=== PATIENT | male | born 1960 | race African-American/Black ===

== ENCOUNTER 2016-08-18 11:57 | Inpatient (IN) | payer MEDICARE, MEDICAID ==
[~2016-08-18] VITALS: Ht 185.4 cm; Wt 76.0 kg
[~2016-08-18 11:57] MED LIST: /ESCI20TA; /WARF5TA; /WARF5TA OR; ACET65TA OR; AMLO10TAB OR; AMLO5TAB OR; ASPI81TA63; BISO5TAB2 PO; BYSTOLIC; BYSTOLIC PO; CELE40TA; CELE40TA OR; CELE40TA PO; COUM10TA OR; COUM6TAB PO; ENOX40SY SC; EUCECRE3 TOP; HYDR12.55 PO; HYDR1TAB97 PO; IBUP600T; LISI40TA; LISIPOW OR; NEBIVOLOL PO; TOPI100T OR; TOPI50TA OR; TRAZ100T; TRAZ100T OR; TRAZ100T4 PO; TRAZODONE PO; VICO5TAB; VICO5TAB OR; ZEBE5TAB PO
[2016-08-18 12:33] LABS: MEAN CORPUSCULAR HEMOGLOBIN 24.6 pg (27.0-33.0); MEAN CORPUSCULAR HGB CONC 31.7 g/dl (32.0-36.5); MEAN CORPUSCULAR VOLUME 77.8 fl (80.0-96.0); RED CELL DISTRIBUTION WIDTH 15.3 % (11.5-14.5); WHITE BLOOD COUNT 4.2 K/mm3 (4.0-10.0)
[2016-08-18 12:51] LABS: AMPHETAMINES LEVEL URINE NEGATIVE (NEGATIVE); BENZODIAZEPINES URINE NEGATIVE (NEGATIVE); COCAINE METABOLITE URINE POSITIVE (NEGATIVE); CONTROL LINE INT CTR LINE PRESENT; METHADONE URINE NEGATIVE (NEGATIVE); OPIATES URINE NEGATIVE (NEGATIVE); TRICYCLIC ANTIDEPRESS URINE NEGATIVE (NEGATIVE)
[2016-08-18 13:06] LABS: ALBUMIN/GLOBULIN RATIO 1.03 (1.00-1.93); ALKALINE PHOSPHATASE 87 U/L (45-117); ALT/SGPT 30 U/L (12-78); ANION GAP 8 MEQ/L (8-16); AST/SGOT 31 U/L (15-37); BILIRUBIN,DIRECT 0.2 MG/DL (0.0-0.2); BILIRUBIN,TOTAL 0.7 MG/DL (0.2-1.0); BLOOD UREA NITROGEN 10 MG/DL (7-18); CALCIUM LEVEL 8.9 MG/DL (8.5-10.1); CARBON DIOXIDE LEVEL 28 MEQ/L (21-32); CHLORIDE LEVEL 107 MEQ/L (98-107); CREATININE FOR GFR 1.02 MG/DL (0.70-1.30); GLOMERULAR FILTRATION RATE > 60.0 (>56); GLUCOSE, FASTING 101 MG/DL (70-105); SODIUM LEVEL 143 MEQ/L (136-145); TOTAL PROTEIN 7.9 GM/DL (6.4-8.2)
[2016-08-18] MEDS ORDERED: OXAZEPAM 15 MG CAP As Ordered ONE (14:19)
[2016-08-18] MEDS ORDERED: cloNIDine 0.2 MG TAB As Ordered ONE ×2 (14:20→15:11)
[2016-08-18] MEDS ORDERED: hydroCHLOROthiazide 25 MG TAB As Ordered ONE (15:41)
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
[2016-08-18 20:56] VITALS: BP 145/90
[2016-08-18] MEDS ORDERED: HYDROCHLOROthiazide 6.25MG PER 1/4TAB PO ONE (21:15)
[2016-08-18] MEDS ORDERED: amLODIPine 5 MG TAB PO ONE (21:15)
[2016-08-18] MEDS: NICOTINE 7 MG/24 HR TRANSDERMAL TD SCH (22:15)
[2016-08-19] MEDS ORDERED: MOM 30ML SUSPENSION UDC PO PRN (00:30)
[2016-08-19] MEDS ORDERED: MAALOX 30 ML SUSP *UDC PO PRN (00:30)
[2016-08-19] MEDS: THIAMINE 100 MG TAB PO SCH ×3 (04:09→20:56)
[2016-08-19 06:52] VITALS: BP 126/56
--- NOTE | 2016-08-19 07:38 | ECGEPIP ---
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
[2016-08-19] MEDS: HYDROCHLOROthiazide 6.25MG PER 1/4TAB PO SCH (07:56)
[2016-08-19] MEDS: MULTIVITAMINS/MINERALS THERAP 1 TAB PO SCH (07:57)
[2016-08-19] MEDS: FOLIC ACID 1 MG TAB PO SCH (07:57)
[2016-08-19] MEDS: amLODIPine 5 MG TAB PO SCH (07:57)
[2016-08-19] MEDS: NICOTINE 7 MG/24 HR TRANSDERMAL TD SCH (07:59)
[2016-08-19] MEDS ORDERED: HYDROCHLOROthiazide 6.25MG PER 1/4TAB PO SCH (09:00)
[2016-08-19] MEDS ORDERED: amLODIPine 5 MG TAB PO SCH (09:00)
[2016-08-19] MEDS ORDERED: hydroCHLOROthiazide 25 MG TAB PO SCH (09:00)
[2016-08-19 13:54] VITALS: BP 159/89
[2016-08-19] MEDS: CitaloPRAM (CeleXA) 10 MG TABLET PO SCH (14:37)
[2016-08-19 18:00] VITALS: BP 142/80
[2016-08-19] MEDS: traZODone 50 MG TAB PO PRN (20:57)
[2016-08-20 06:30] VITALS: BP 147/75
[2016-08-20] MEDS: THIAMINE 100 MG TAB PO SCH ×2 (08:21→20:26)
[2016-08-20] MEDS: CitaloPRAM (CeleXA) 10 MG TABLET PO SCH (08:21)
[2016-08-20] MEDS: MULTIVITAMINS/MINERALS THERAP 1 TAB PO SCH (08:21)
[2016-08-20] MEDS: FOLIC ACID 1 MG TAB PO SCH (08:21)
[2016-08-20] MEDS: amLODIPine 5 MG TAB PO SCH (08:22)
[2016-08-20] MEDS: HYDROCHLOROthiazide 6.25MG PER 1/4TAB PO SCH (08:22)
[2016-08-20] MEDS: NICOTINE 7 MG/24 HR TRANSDERMAL TD SCH (08:30)
[2016-08-20 08:46] VITALS: BP 132/72
[2016-08-20] MEDS: ACETAMINOPHEN TAB 650MG DOSE (2X325MG) PO PRN ×2 (08:46→21:17)
--- NOTE | 2016-08-20 12:44 | MHHPE ---
DATE OF ADMISSION: 08/18/2016 VITAL SIGNS: Temperature 96.5, pulse 55, respiratory rate 16, blood pressure 160/90, pulse oximetry 99% on room air. LABORATORY RESULTS: CBC within normal limits except red bloods cell high 6.15, MCV low 77.8, MCH low 24.6, MCHC low 31.7, RDW high 15.3, CMP, including TSH within normal limits, including cardiac enzymes. Urine toxicology positive for cocaine. Blood alcohol level, Tylenol, and salicylate levels within normal limits. EKG shows heart rate 56, QTC 451, sinus rhythm, left ventricular hypertrophy and ST-T changes, similar to previous EKG on 07/29/2016. MEDICATIONS AT THE TIME OF ADMISSION: Patient has been noncompliant with medications. He is supposed to be taking: - amlodipine 5 mg daily - hydrochlorothiazide 6.25 mg daily - Celexa unknown dosage - hydroxyzine 25 mg by mouth twice a day - trazodone 150 mg He states he has been on Celexa for three to four years, but inconsistently and not long enough to know if it works. He does not know if it helps. He things the hydroxyzine help with anxiety. He states he has been forgetful and not having enough motivation to fill prescriptions and that is why he becomes inconsistent with compliance. CHIEF COMPLAINT: Patient hospitalized for active suicidal ideation with plan. HISTORY OF PRESENTING ILLNESS: Patient is a 55-year-old Male, single, living by himself. He spoke to his strategy analyst yesterday and voiced active suicidal ideation with plan. His strategy analyst brought him to the hospital. Patient stated he has been feeling depressed and suicidal for about the past month. He states he tried to kill himself about three weeks ago by taking an overdose of cocaine, heroin and alcohol. He states he had gotten the drugs from a girl and he was in a parking lot when he took the medication and he was unconscious. Someone called 911. He is not sure who. The records from the admission to the medical floor on that occasion indicates that patient was hospitalized in the progressive care unit (PCU). He was admitted to PCU for cardiac monitoring. Patient became angry when they found a cocaine pipe in his belongings and he signed out against medical advice. Patient states he never told them that he had made a suicide attempt at the time. Patient since then has been having active thoughts of ending his life by walking in front of a car or turning the gas on. He states he is tired of his life and "...doing the same thing over and over again." He states he has not seen his family for a while as they live in [place]. He has been here for five years. He came up here because he had a friend, but his friend is no longer here. He stated he does not go to rastafarian anymore. He stays at home all day, sleeping on his couch. He states he is giving up. He denies any auditory or visual hallucinations, delusions. He denies any thoughts to hurt others. Denies homicidal ideation. He states his thoughts are filled with active, destructive thoughts of hurting himself; however, he feels safe on the unit and feels he can keep himself safe around people here on the unit. He denies any thoughts to hurt himself or take his own life or hurt others, or having suicidal thoughts in the unit. PAST PSYCHIATRIC HISTORY: Patient has made two previous suicide attempts. He has had previous psychiatric admissions to [facility] inpatient mental health unit ([facility] He states he was seeing a prescriber, Jie, in [facility] for the past three to four years. He does not have a therapeutic case manager or case hardener. CHEMICAL DEPENDENCY: He drinks four to five three times a week. He smokes cocaine weekly. The last time he did cocaine was two days ago. The last time he drank alcohol was three to four days ago. He denies using other drugs. He stated he used heroin, but only with recent suicide attempt three weeks ago. FAMILY HISTORY: Denies history of mental illness, substance abuse, suicide, suicide attempts. PAST MEDICAL HISTORY: 1. Hepatitis C. 2. History of deep venous thrombosis (DVT). 3. Hypertension. 4. History of recurrent seizures. SOCIAL HISTORY: He lives by himself. He is on Social Security Income (SSI) and Social Security Disability (SSD). He has been living here for the past five years. He denies emotional, sexual or physical abuse. He was raised in [place]. His family is still there. MENTAL STATUS EXAMINATION: A 55-year-old -[place] male, tall height, slim build. Pleasant, calm, cooperative. Depressed, anxious. Affect restricted. Mood congruent. Thought form: logical, current, goal-directed, organized. Thought content: Denies active suicidal ideation (SI) or thought of hurt self. Denies homicidal ideation thoughts towards other while he is on the unit. Perception: Denies auditory or visual hallucinations. Insight and judgment fair. Impulse control fair. He contracts for safety on the unit. ASSESSMENT: A 55-year-old -[place] male with significant past psychiatric history of depression, substance abuse and noncompliance with medication. He presents himself with active suicidal ideation. DIAGNOSES: 1. Major depression disorder, recurrent, current episode severe without psychosis. 2. Alcohol use disorder. 3. Cocaine use disorder. PROBLEM LIST: 1. Risk of suicide. 2. Depression with anxiety. 3. Substance use. 4. Noncompliance. PLAN: Patient will be resumed on Celexa. He will be placed on Clinical [place] Withdrawal Assessment (CIWA) protocol and withdrawal precautions. He will be provided hydroxyzine as needed for anxiety. He will need case management referral, as it may help him to be better compliant with his medication. We also informed him about delivery service that some pharmacies have, which would again help improve his compliance with medication.
[2016-08-20 18:00] VITALS: BP 142/87
[2016-08-20] MEDS: LORazepam 2 MG TAB PO PRN (21:16)
[2016-08-20 21:20] VITALS: BP 168/88
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
[2016-08-20] MEDS: traZODone 50 MG TAB PO PRN (23:12)
[2016-08-21 06:00] VITALS: BP 155/88
[2016-08-21] MEDS: MULTIVITAMINS/MINERALS THERAP 1 TAB PO SCH (08:22)
[2016-08-21] MEDS: FOLIC ACID 1 MG TAB PO SCH (08:22)
[2016-08-21] MEDS: CitaloPRAM (CeleXA) 20 MG TAB PO SCH (08:22)
[2016-08-21] MEDS: THIAMINE 100 MG TAB PO SCH ×2 (08:22→21:36)
[2016-08-21] MEDS: HYDROCHLOROthiazide 6.25MG PER 1/4TAB PO SCH (08:23)
[2016-08-21] MEDS: amLODIPine 5 MG TAB PO SCH (08:23)
[2016-08-21 10:12] VITALS: BP 150/85
[2016-08-21] MEDS: LORazepam 2 MG TAB PO PRN (10:20)
[2016-08-21 10:24] VITALS: BP 142/94
[2016-08-21 14:08] VITALS: BP 138/80
[2016-08-21 18:00] VITALS: BP 138/80
[2016-08-21] MEDS: traZODone 50 MG TAB PO PRN (21:36)
[2016-08-22 07:15] VITALS: BP 144/86
[2016-08-22] MEDS: THIAMINE 100 MG TAB PO SCH ×2 (09:12→21:53)
[2016-08-22] MEDS: amLODIPine 5 MG TAB PO SCH (09:12)
[2016-08-22] MEDS: FOLIC ACID 1 MG TAB PO SCH (09:12)
[2016-08-22] MEDS: MULTIVITAMINS/MINERALS THERAP 1 TAB PO SCH (09:12)
[2016-08-22] MEDS: HYDROCHLOROthiazide 6.25MG PER 1/4TAB PO SCH (09:12)
[2016-08-22] MEDS: CitaloPRAM (CeleXA) 20 MG TAB PO SCH (09:12)
[2016-08-22 09:32] VITALS: BP 131/79
--- NOTE | 2016-08-22 10:42 | IPNPDOC ---
Assessment/Plan Date Seen The patient was seen on 08/22/16. Problems Problems: (1) Hypertension Status: Chronic Response to Treatment: Stable Problem Text: * Hydrochlorothiazide 6.25 mg daily * Norvasc 5 mg daily * Blood pressure this a.m. is noted to be 131/79 * Continue to monitor (2) Hepatitis C Status: Chronic Problem Text: * Plan is for outpatient follow-up (3) Low back pain Status: Acute Problem Text: * Check UA/urine culture * X-ray of lumbosacral spine * Continue with Tylenol as needed Plan / VTE VTE Prophylaxis Ordered?: No (ambulatory) Subjective Review of Systems CC/HPI The patient is a 56-year-old male admitted with a reason for visit of Unspecified Depressive D/O. Events since last encounter Patient complaining of low back pain which she states is worse this morning. Activity is making his pain worse. It is radiating across his low back and into his upper legs. He denies weakness in his legs. No numbness or tingling. No loss of bowel or bladder control. He does not complain of any urinary pain, hematuria, frequency or urgency. Constitutional: Denies: Chills, Fever, Malaise, Night Sweats, Weakness Pulmonary: Denies: Cough, Dyspnea Cardiovascular: Denies: Chest Pain, Lt Headedness, Orthopnea, Palpitations, Paroxysmal Noc. Dyspnea Genitourinary: Denies: Dysuria, Frequency, Incontinence, Retention Objective Physical Examination General Exam: Positive: Alert Eye Exam: Positive: PERRLA ENT Exam: Positive: Atraumatic Chest Exam: Positive: Clear to auscultation, Normal air movement Heart Exam: Positive: Normal S1, Normal S2, Rate Normal, Regular Rhythm, Negative: Murmurs, Rubs Abdomen Exam: Positive: Normal bowel sounds, Soft, Negative: Hepatospenomegaly, Tenderness Skin Exam: Positive: Nl turgor and temperature Neuro Exam: Positive: Normal Gait, Other (there is no pain with palpation over the lumbar area or paraspinal muscles. A leg raise test is negative. Deep tendon reflexes are 2+ at the knees.) Vital Signs/I&O Vital Signs Date Time Temp Pulse Resp B/P Pulse Ox O2 Delivery O2 Flow Rate FiO2 08/22/16 09:32 74 131/79 08/22/16 07:15 96.5 16 08/21/16 06:00 Room Air 08/18/16 20:56 99 Laboratory Data Labs 24H Laboratory Tests 2 08/22/16 09:27: Urine Amorphous Sediment , Urine Appearance CLEAR, Urine Color YELLOW, Urine pH 5.0, Urine Specific [place] 1.023, Urine Protein NEGATIVE, Urine Glucose (UA) NEGATIVE, Urine Ketones NEGATIVE, Urine Urobilinogen 0.2, Urine Bilirubin NEGATIVE, Urine Leukocyte Esterase NEGATIVE, Urine Bacteria (Auto) NEGATIVE, Urine Blood NEGATIVE, Urine Calcium Carbonate Cryst(Auto) , Urine Calcium Oxalate Cryst (Auto) , Urine Calcium Phosphate Kerri (Auto) , Urine Cellular Casts , Urine Cystine Crystals , Urine Granular Casts (Auto) , Urine Hyaline Casts (Auto) 0, Urine Leucine Crystals , Urine Mucus (Auto) SMALL, Urine Nitrite NEGATIVE, Urine Oval Fat Bodies (Auto) , Urine RBC (Auto) 1, Urine Renal Epithelial Cells , Urine Sperm (Auto) , Urine Squamous Epithelial Cells 0 , Urine Transitional Epithelial Cells , Urine Trichomonas (Auto) , Urine Triple Phosphate Cryst (Auto) , Urine Tyrosine Crystals , Urine Uric Acid Crystals ( Auto) , Urine WBC (Auto) 0, Urine Waxy Casts (Auto) , Urine Yeast-Like Cells ( Auto) Microbiology Microbiology 08/22/16 Urine Culture, Received Pending Jasmyn Kilpatrick Aug 22, 2016 10:42
--- NOTE | 2016-08-22 12:13 | REP ---
LUMBOSACRAL SPINE: Five views of the lumbosacral spine performed. There is no compression fracture. There is no spondylolysis or spondylolisthesis. There is mild spurring and disc space narrowing at L5-S1 with subchondral sclerosis. The posterior elements are intact. IMPRESSION: Degenerative changes at L5-S1. No compression fracture and no malalignment. Incidental note is made of a gallstone in the right upper quadrant. Signed by Jose G Savage MD 08/22/2016 04:11 P
[2016-08-22] MEDS: ACETAMINOPHEN TAB 650MG DOSE (2X325MG) PO PRN ×2 (13:21→21:53)
[2016-08-22 18:00] VITALS: BP 142/94
[2016-08-22] MEDS: traZODone 50 MG TAB PO PRN (21:53)
[2016-08-23 06:00] VITALS: BP 160/92
--- NOTE | 2016-08-23 06:20 | IPN ---
DATE: 08/20/2016 VITAL SIGNS: Temperature 95.6, pulse 56, respiratory rate 16, blood pressure 147/75. CURRENT MEDICATION: - Celexa 10 mg - amlodipine - hydrochlorothiazide - trazodone as needed - Ativan as needed HISTORY OF PRESENTING ILLNESS: Patient states that he is feeling a little bit better. He is out of his room. He does not want a nicotine patch. States he slept poorly. I advised the patient to try another night of the trazodone. I advised that will increase the Celexa tomorrow. He has tolerated the 10 mg. He continues to deny active suicidal ideation. He continues to contract for safety on the unit. MENTAL STATUS EXAMINATION: 55-year-old male, tall height, slim build, pleasant, calm, cooperative, depressed, anxious. Affect restricted. Mood congruent. Thought form logical, coherent and goal directed, organized. Thought content: Denies suicidal ideation (SI), homicidal ideation (HI), delusions. Perception: Denies auditory or visual hallucinations. Insight and judgment fair. Impulse control fair. ASSESSMENT AND PLAN: Increase Celexa to 20 mg. Monitor response to medication changes.
[2016-08-23 07:35] VITALS: BP 140/90
[2016-08-23] MEDS: HYDROCHLOROthiazide 6.25MG PER 1/4TAB PO SCH (08:12)
[2016-08-23] MEDS: MULTIVITAMINS/MINERALS THERAP 1 TAB PO SCH (08:12)
[2016-08-23] MEDS: FLUoxetine 10 MG CAP PO SCH (08:12)
[2016-08-23] MEDS: THIAMINE 100 MG TAB PO SCH ×2 (08:12→21:52)
[2016-08-23] MEDS: FOLIC ACID 1 MG TAB PO SCH (08:12)
[2016-08-23] MEDS: amLODIPine 5 MG TAB PO SCH (08:13)
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
--- NOTE | 2016-08-23 10:07 | IPN ---
DATE: 08/21/2016 VITAL SIGNS: Temperature 96.1, pulse 61, respiratory rate 16, blood pressure 155/85. CURRENT MEDICATIONS: - Celexa 20 mg in the morning - amlodipine/hydrochlorothiazide - trazodone as needed - Ativan as needed The patient was seen in the presence of Nancy Garcia, nurse on the unit. The patient states that he is doing the same, no different. He was sleeping when I went to get him. He states that he is having some shaking of his hand and his head hurts and he is feeling anxious. These are all potential withdrawal symptoms from alcohol. I reviewed his vital signs. His blood pressure was elevated at 150/85 this morning. He has not received Ativan as per the CIWA scale since last night at 9:00 p.m. Nancy said she will check him out for the CIWA scale and see if he would meet criteria for medication. Subsequently, she checked his blood pressure and it was identical to the morning and he received a dose of Ativan 2 mg. His blood pressure came down after that. The patient states that he continues to be depressed. He states that he does not think that he will do any chemical dependency treatment as long as he is on medication. The patient denies suicidal ideation, homicidal ideation, thoughts of deliberate self harm or thoughts to hurt others. MENTAL STATUS EXAMINATION: 56-year-old -Gambian male, tall height, average build, pleasant, calm, cooperative, depressed, anxious. Affect restricted. Mood congruent. Thought form logical, coherent, and goal directed, organized. Thought content: Denies suicidal ideation, homicidal ideation, delusions. Perception: Denies auditory or visual hallucinations. Insight and judgment fair. Impulse control fair. ASSESSMENT: 56-year-old -Gambian male hospitalized for suicidal ideation. PLAN: Monitor response to increase of Celexa that was done from this morning. Closely monitor CIWA scale and need for benzodiazepine, as the patient had alcohol withdrawal seizures earlier in the month, for which he had been hospitalized here at [facility]. The patient will need case management referral in the community because he is very poorly compliant with medication, as he usually does not go and fill it, although he finds the medication useful. It will also be imperative to set up home delivery of medication for him.
[2016-08-23 12:11] VITALS: BP 142/90
--- NOTE | 2016-08-23 13:02 | IPN ---
DATE: 08/22/2016 VITAL SIGNS: Temperature 96.5, pulse 71, respirations 16, blood pressure 144/86. CURRENT MEDICATIONS: - Celexa 20 mg every morning - trazodone 50 mg at bedtime as needed PSYCHIATRIC HISTORY: This is a 56-year-old male living by himself, living on disability. Patient reported to his fruit grader operator that he had active suicidal ideation with a plan. The fruit grader operator brought him to the hospital. Patient has been feeling depressed and suicidal for about one month. Patient had a serious suicide attempt about 3 weeks ago, overdosing on cocaine, heroin, and alcohol. He passed out in the parking lot but was seen by a woman, and 911 was called. Patient was brought here to the hospital, and he was admitted to the progressive care unit (PCU). Patient signed out against medical advice, however. Currently he has suicidal thoughts of walking in front of a car or turning the gas on. Patient feels helpless and hopeless. He feels unproductive. He self-medicates with alcohol, which makes the depression worse. He also abuses cocaine as well and at times heroin. His appetite is poor. He reported losing 30 pounds over the past 6 months. His concentration is poor. Lack of energy is significant. He has trouble falling asleep. He gets no pleasure out of life. Patient has been prescribed Celexa off and on over the years, but he has a history of poor medication compliance. He has not taken the Celexa for at least 1-2 months recently. Patient has heard voices in the past. These are primarily whispers that are very vast in the background. He blames them on his alcoholism. Patient has been at [facility] in the past. He claims he is willing to go back to Narcotics Anonymous (NA) once his mood improves. He did speak to his son in [place] earlier today. His family is worried about him. All of his family is down in [place], and none here in the [facility]. Patient has not had a good clinical response to Celexa over the years. We discuss either Prozac or Paxil. He would prefer a trial on Prozac. Side effect profile reviewed. Risk of suicidal ideation reviewed. Patient states his depression dates back to the mid when he was living in the [facility] area. Patient was hospitalized for about a month at that time. MENTAL STATUS EXAMINATION: Patient is alert, oriented, and cooperative. Affect does appear sad. He is quite thin. Mood is moderately to severely depressed. He currently denies hearing voices but has heard them in the past. No signs of paranoia or thought disorder. Insight and judgment are fair. DIAGNOSES: 1. Major depression, recurrent, severe with past history of psychosis. 2. Alcohol use disorder. 3. Cocaine use disorder. PLAN: Discontinue Celexa and put on Prozac 10 mg every morning. Monitor for any signs of alcohol withdrawal.
[2016-08-23] MEDS: ACETAMINOPHEN TAB 650MG DOSE (2X325MG) PO PRN (15:38)
[2016-08-23 18:00] VITALS: BP 138/90
[2016-08-23] MEDS ORDERED: GABAPENTIN 400 MG CAP PO SCH (21:00)
[2016-08-23] MEDS: traZODone 50 MG TAB PO PRN (21:53)
[2016-08-23 22:30] VITALS: BP 142/84
[2016-08-24 06:15] VITALS: BP 147/92
[2016-08-24] MEDS: FLUoxetine 10 MG CAP PO SCH (08:20)
[2016-08-24] MEDS: THIAMINE 100 MG TAB PO SCH ×2 (08:20→21:47)
[2016-08-24] MEDS: FOLIC ACID 1 MG TAB PO SCH (08:20)
[2016-08-24] MEDS: MULTIVITAMINS/MINERALS THERAP 1 TAB PO SCH (08:20)
[2016-08-24] MEDS: HYDROCHLOROthiazide 6.25MG PER 1/4TAB PO SCH (08:20)
[2016-08-24] MEDS: amLODIPine 5 MG TAB PO SCH (08:21)
--- NOTE | 2016-08-24 12:00 | IPN ---
DATE: 08/23/2016 VITAL SIGNS: Temperature 97.1, pulse 64, respirations 20, blood pressure 142/90. CURRENT MEDICATIONS: - Prozac 10 mg every morning - trazodone 100 mg at bedtime as needed - folic acid 1 mg daily - multivitamin one tablet daily - thiamine 100 mg twice a day PSYCH HISTORY: Patient still feels depressed. He feels "confused". He is not sure what to do with his life. He would like to have goals. He has no reason to get out of bed in the morning. He would like to go to some type of program that would give him a meaningful daily activity. The patient had been on Celexa, but was switched over to Prozac today. He tolerated the initial dose this morning just fine. No gastrointestinal side effects. The patient still feels anxious and "overwhelmed". His appetite is good. He did not sleep well last night with the trazodone. He claims that he had some "crazy dreams". He wants some other sleeping medication. We discussed a trial of gabapentin as that can be helpful for insomnia in alcoholics. Side effect profile reviewed. MENTAL STATUS EXAM: Patient is highly anxious with some dysphoria and mild to moderate depression. He is not actually suicidal. He is not homicidal. Insight and judgment are fair. No signs of psychosis. No signs of organicity. IMPRESSION: Major depression, recurrent. Alcohol use disorder. Cocaine use disorder. PLAN: Start trial of gabapentin 400 mg at bedtime tonight to help with sleep, anxiety and perhaps craving.
[2016-08-24 12:49] VITALS: BP 147/92
[2016-08-24] MEDS: GABAPENTIN 300 MG CAP PO SCH ×2 (17:05→21:47)
[2016-08-24 18:00] VITALS: BP 129/76
[2016-08-24 21:48] VITALS: BP 134/94
[2016-08-24 21:49] VITALS: BP 134/94
[2016-08-25 06:00] VITALS: BP 152/82
[2016-08-25] MEDS: GABAPENTIN 300 MG CAP PO SCH ×4 (06:25→21:51)
[2016-08-25 08:48] VITALS: BP 134/88
[2016-08-25] MEDS: amLODIPine 5 MG TAB PO SCH (08:51)
[2016-08-25] MEDS: THIAMINE 100 MG TAB PO SCH ×2 (08:51→21:51)
[2016-08-25] MEDS: FOLIC ACID 1 MG TAB PO SCH (08:51)
[2016-08-25] MEDS: HYDROCHLOROthiazide 6.25MG PER 1/4TAB PO SCH (08:51)
[2016-08-25] MEDS: ACETAMINOPHEN TAB 650MG DOSE (2X325MG) PO PRN ×2 (08:51→19:07)
[2016-08-25] MEDS: MULTIVITAMINS/MINERALS THERAP 1 TAB PO SCH (08:51)
[2016-08-25] MEDS: FLUoxetine 20 MG CAP PO SCH (08:51)
[2016-08-25 11:25] VITALS: BP 138/82
[2016-08-25 18:00] VITALS: BP 132/82
[2016-08-25] MEDS ORDERED: cloNIDine 0.1 MG TAB PO SCH (21:00)
[2016-08-26 06:37] VITALS: BP 141/88
[2016-08-26] MEDS: GABAPENTIN 300 MG CAP PO SCH ×3 (07:10→21:54)
[2016-08-26 08:10] VITALS: BP 141/88
[2016-08-26] MEDS: THIAMINE 100 MG TAB PO SCH ×2 (09:10→21:54)
[2016-08-26] MEDS: amLODIPine 5 MG TAB PO SCH (09:10)
[2016-08-26] MEDS: FLUoxetine 20 MG CAP PO SCH (09:10)
[2016-08-26] MEDS: FOLIC ACID 1 MG TAB PO SCH (09:10)
[2016-08-26] MEDS: MULTIVITAMINS/MINERALS THERAP 1 TAB PO SCH (09:10)
[2016-08-26] MEDS: HYDROCHLOROthiazide 6.25MG PER 1/4TAB PO SCH (09:10)
[2016-08-26] MEDS: ACETAMINOPHEN TAB 650MG DOSE (2X325MG) PO PRN ×2 (11:41→19:50)
[2016-08-26 18:00] VITALS: BP 136/86
[2016-08-26 19:50] VITALS: BP 138/82
[2016-08-26] MEDS: MIRTAZAPINE 15 MG TAB PO SCH (21:54)
[2016-08-26] MEDS: cloNIDine 0.2 MG TAB PO SCH (21:55)
[2016-08-27 06:21] VITALS: BP 142/88
[2016-08-27] MEDS: FOLIC ACID 1 MG TAB PO SCH (09:21)
[2016-08-27] MEDS: FLUoxetine 20 MG CAP PO SCH (09:21)
[2016-08-27] MEDS: HYDROCHLOROthiazide 6.25MG PER 1/4TAB PO SCH (09:21)
[2016-08-27] MEDS: THIAMINE 100 MG TAB PO SCH ×2 (09:21→21:51)
[2016-08-27] MEDS: MULTIVITAMINS/MINERALS THERAP 1 TAB PO SCH (09:22)
[2016-08-27] MEDS: amLODIPine 5 MG TAB PO SCH (09:22)
[2016-08-27] MEDS ORDERED: LORazepam 1 MG TAB PO PRN (10:15)
[2016-08-27 11:34] VITALS: BP 146/78
--- NOTE | 2016-08-27 12:05 | IPN ---
DATE OF SERVICE: 08/25/2016 Temperature 97.8, pulse 60, respirations 16, blood pressure 138/82. CURRENT MEDICATION: - Prozac 20 mg every morning - gabapentin 300 mg three times a day and 600 mg at bedtime - trazodone discontinued due to severe night sweats PSYCHIATRIC HISTORY: The patient still reports feeling somewhat depressed. Worries about his future. Would like to do some type of meaningful daily activity. He is contemplating [email or web address] He is going to the groups here. His appetite is fair. He is not sleeping well, however. His trazodone was discontinued. He did not have any night sweats last night but did not sleep well, either. He refuses Seroquel, as it made him "fat." Remeron would also be a weight-roge. We discussed a trial on clonidine, which should be relatively weight-neutral. Side effect profile reviewed. MENTAL STATUS EXAMINATION: The patient is still quite anxious. He is still depressed with dysphoria but no suicidal. He is not homicidal. Insight and judgment are fair. The patient is nonpsychotic. IMPRESSION: 1. Major depression, recurrent. 2. Alcohol use disorder. 3. Cocaine use disorder. PLAN: Add clonidine 0.1 mg at bedtime to help with sleep, anxiety. Monitor for any orthostatic side effects.
[2016-08-27 18:00] VITALS: BP 146/78
[2016-08-27 20:00] VITALS: BP 143/84
[2016-08-27] MEDS: MIRTAZAPINE 15 MG TAB PO SCH (21:51)
[2016-08-27] MEDS: GABAPENTIN 300 MG CAP PO SCH (21:51)
[2016-08-27] MEDS: cloNIDine 0.2 MG TAB PO SCH (21:53)
--- NOTE | 2016-08-27 22:15 | ECGEPIP ---
Stationary ECG Study [facility] Test Date: 2016-08-27 Pat Name: GIANNI GARCIA Department: Room: [place] [address] Gender: M Band Saw Marker: MILKA : 1960 Requested By: TARAH MORENO Order Number: [id number] Reading MD: Wali Esteves Measurements Intervals [place] Rate: 59 P: 63 GA: 148 QRS: 35 QRSD: 90 T: -55 QT: 426 QTc: 423 Interpretive Statements SINUS BRADYCARDIA WITH OCCASIONAL SUPRAVENTRICULAR PREMATURE COMPLEXES POSSIBLE LEFT ATRIAL ENLARGEMENT POSSIBLE LEFT VENTRICULAR HYPERTROPHY MODERATE T-WAVE ABNORMALITY, CONSIDER INFERIOR ISCHEMIA LAST TRACING ON 08/18/2016 AT 18:50:46. THERE IS NOW LESS ST-T ABNORMALITY OTHERWISE NO SIGNIFICANT CHANGES BUT PACs Electronically Signed On 08-27-2016 22:14:46 EST by Wali Esteves
[2016-08-28 06:00] VITALS: BP 152/78
[2016-08-28] MEDS: HYDROCHLOROthiazide 6.25MG PER 1/4TAB PO SCH (09:17)
[2016-08-28] MEDS: FOLIC ACID 1 MG TAB PO SCH (09:18)
[2016-08-28] MEDS: FLUoxetine 20 MG CAP PO SCH (09:18)
[2016-08-28] MEDS: THIAMINE 100 MG TAB PO SCH ×2 (09:18→21:55)
[2016-08-28] MEDS: amLODIPine 5 MG TAB PO SCH (09:18)
[2016-08-28] MEDS: MULTIVITAMINS/MINERALS THERAP 1 TAB PO SCH (09:18)
--- NOTE | 2016-08-28 13:06 | IPN ---
DATE: 08/24/2016 VITAL SIGNS: 96.4, pulse 63, respirations 18, blood pressure 147/92. CURRENT MEDICATION: - Prozac 10 mg every morning - trazodone 100 mg nightly as needed - gabapentin 400 mg nightly - folic acid - multivitamin - thiamine PSYCHIATRIC HISTORY: Patient still reports feeling depressed. He also feels "confused." He wonders what he can do in his life to be productive. One counselor at first promised [facility] ([facility]) then changed her mind. This was crushing to the patient. He felt upset and depressed afterwards. He still complains of anxiety symptoms. He did sleep better last night with the gabapentin but does report having some night sweats. This might be due to the trazodone. He seems to be tolerating the Prozac well. No gastrointestinal side effects noted. MENTAL STATUS EXAM: Patient still reports anxiety. His depression is mild to moderate range. He denies current suicidal thoughts. He is not homicidal. Insight and judgment are fair. No signs of psychosis. IMPRESSION: Major depression, recurrent. Alcohol use disorder. Cocaine use disorder. PLAN: Increase gabapentin to 300 mg three times a day to help with anxiety during the day. Nighttime dose 600 mg nightly to help with sleep. Trazodone discontinued. Increase Prozac to 20 mg every morning to help with mood.
[2016-08-28 18:00] VITALS: BP 137/84
--- NOTE | 2016-08-28 20:42 | IPN ---
DATE: 08/27/2016 VITAL SIGNS: Temperature 96.2, pulse 60, respirations 18, blood pressure 146/78. CURRENT MEDICATIONS: - Prozac 20 mg every morning - gabapentin 600 mg at bedtime - Remeron 30 mg at bedtime - clonidine 0.2 mg at bedtime PSYCHIATRIC HISTORY: The patient had some sharp chest pain yesterday evening about 8 p.m. The hospitalist was called. Cardiac enzymes were normal with no change in his electrocardiogram (EKG). The patient shows signed of possible coronary artery disease; however, he was confronted as to his smoking habit, as well as his use of cocaine. He appears motivated to not resume smoking. He has no craving for cigarettes while on the unit. He has not required nicotine habit or gum, but might be a candidate for the Nicorette gum upon discharge. The patient states his mood is still somewhat depressed, but does find the medication helpful. He did sleep better last night with the Remeron, for example. He claims he got about six hours sleep which is good for him. He feels rested this morning. He has no further chest pain. He is requested to contact nursing staff immediately if the chest pain returns. MENTAL STATUS EXAMINATION: The patient is alert and oriented and cooperative. He does appear to be calmer and not as accelerated. Affect is a bit brighter. He is not homicidal or suicidal. No signs of psychosis. Insight and judgment seem to be improving. IMPRESSION: 1. Major depression, recurrent. 2. Alcohol use disorder. 3. Cocaine use disorder. PLAN: Continue current psychotropics.
[2016-08-28] MEDS: MIRTAZAPINE 15 MG TAB PO SCH (21:55)
[2016-08-28] MEDS: GABAPENTIN 300 MG CAP PO SCH (21:55)
[2016-08-28] MEDS: cloNIDine 0.2 MG TAB PO SCH (21:56)
[2016-08-29 06:11] VITALS: BP 145/80
--- NOTE | 2016-08-29 08:45 | IPN ---
DATE: 08/28/2016 VITAL SIGNS: Temperature 96.1, pulse 56, respiration 18, blood pressure 152/78. CURRENT MEDICATIONS: - Prozac 20 mg every morning - gabapentin 600 mg at bedtime - clonidine 0.2 mg at bedtime - Remeron 30 mg at bedtime - trazodone 100 mg at bedtime PSYCHIATRIC HISTORY: The patient is upset about another female patient on the unit is quite bossy, they had a disagreement this morning so that patient got upset and isolated in his room all morning, he is encouraged to go to groups etc. He did not sleep again well last night. We discussed increasing his Remeron. He states his appetite is improving. He speaks to his family down in [place] frequently on the telephone, they are supportive. MENTAL STATUS EXAMINATION: The patient still reports some anxiety and mild depression. He is not homicidal or suicidal. No signs of psychosis. Insight and judgment seem improved. IMPRESSION: 1. Major depression, recurrent. 2. Alcohol use disorder. 3. Cocaine use disorder. PLAN: Increase Remeron to 45 mg at bedtime. Start to work on discharge planning later this week. Patient does have an apartment and a counselor in the area.
[2016-08-29] MEDS: FLUoxetine 20 MG CAP PO SCH (09:22)
[2016-08-29] MEDS: FOLIC ACID 1 MG TAB PO SCH (09:22)
[2016-08-29] MEDS: THIAMINE 100 MG TAB PO SCH ×2 (09:22→22:11)
[2016-08-29] MEDS: HYDROCHLOROthiazide 6.25MG PER 1/4TAB PO SCH (09:22)
[2016-08-29] MEDS: MULTIVITAMINS/MINERALS THERAP 1 TAB PO SCH (09:22)
[2016-08-29] MEDS: amLODIPine 5 MG TAB PO SCH (09:23)
--- NOTE | 2016-08-29 16:27 | IPN ---
DATE: 08/29/2016 VITAL SIGNS: Temperature 96.2, pulse 68, respirations 18, blood pressure 145/80. CURRENT MEDICATIONS: - Prozac 20 mg in the morning - gabapentin 600 mg at night - clonidine 0.2 mg at night - Remeron 45 mg at night PSYCHIATRIC HISTORY: The patient did not sleep well again last night. He appears to have a high tolerance to psychotropics. He was a bit agitated this morning. He still feels mildly depressed. He does not feel ready to go home yet. No cardiac symptoms noted. He is resistant to a trial on Seroquel. He is wanting go on a trial of Zyprexa. He does not want a low dose, he wants to a medium dose that might be therapeutic to help him sleep better at night. MENTAL STATUS EXAMINATION: The patient is still quite anxious with mild to moderate depression. No signs of dangerousness. He is not psychotic. Insight and judgment seem fair. IMPRESSION: 1. Major depression, recurrent. 2. Alcohol use disorder. 3. Cocaine use disorder. PLAN: Add Zyprexa 10 mg at night to help with insomnia and racing thoughts at night.
[2016-08-29 18:00] VITALS: BP 130/65
[2016-08-29] MEDS: MIRTAZAPINE 15 MG TAB PO SCH (22:10)
[2016-08-29] MEDS: GABAPENTIN 300 MG CAP PO SCH (22:11)
[2016-08-29] MEDS: OLANZapine 10 MG TAB PO SCH (22:11)
[2016-08-29] MEDS: cloNIDine 0.2 MG TAB PO SCH (22:12)
[2016-08-30 06:36] VITALS: BP 124/70
[2016-08-30] MEDS: FOLIC ACID 1 MG TAB PO SCH (09:18)
[2016-08-30] MEDS: THIAMINE 100 MG TAB PO SCH ×2 (09:18→21:45)
[2016-08-30] MEDS: amLODIPine 5 MG TAB PO SCH (09:18)
[2016-08-30] MEDS: HYDROCHLOROthiazide 6.25MG PER 1/4TAB PO SCH (09:18)
[2016-08-30] MEDS: MULTIVITAMINS/MINERALS THERAP 1 TAB PO SCH (09:18)
[2016-08-30] MEDS: FLUoxetine 20 MG CAP PO SCH (09:18)
[2016-08-30 18:00] VITALS: BP 124/78
--- NOTE | 2016-08-30 19:52 | IPN ---
DATE: 08/30/2016 VITAL SIGNS: Temperature 97.0, pulse 58, respirations 16, blood pressure 124/70. CURRENT MEDICATIONS: - mirtazapine 45 mg at bedtime - clonidine 0.2 mg at bedtime - Zyprexa 10 mg at bedtime - Prozac 20 mg every morning - gabapentin 600 mg at bedtime PSYCHIATRIC HISTORY: Patient did sleep well last night. He slept about 5 hours. He tolerated the Zyprexa well. He feels calmer today as well. His racing thoughts seem to have improved. His appetite is good. He feels more positive about the future. He is handling stress better. No complaints of chest pain. Patient more active in the milieu. MENTAL STATUS EXAMINATION: Anxiety is much improved. He appears calmer. Affect improved. Less depressed. He is not suicidal. Not homicidal. No signs of psychosis. Insight and judgment seem improved. Racing thoughts much improved. IMPRESSION: 1. Major depression, recurrent. 2. Alcohol use disorder. 3. Cocaine use disorder. PLAN: Continue Zyprexa 10 mg at bedtime. Involve in milieu therapy.
[2016-08-30] MEDS: OLANZapine 10 MG TAB PO SCH (21:45)
[2016-08-30] MEDS: GABAPENTIN 300 MG CAP PO SCH (21:46)
[2016-08-30] MEDS: cloNIDine 0.2 MG TAB PO SCH (21:46)
[2016-08-30] MEDS: MIRTAZAPINE 15 MG TAB PO SCH (21:47)
[2016-08-31 06:00] VITALS: BP 152/78
[2016-08-31] MEDS: HYDROCHLOROthiazide 6.25MG PER 1/4TAB PO SCH (09:09)
[2016-08-31] MEDS: FLUoxetine 20 MG CAP PO SCH (09:09)
[2016-08-31] MEDS: MULTIVITAMINS/MINERALS THERAP 1 TAB PO SCH (09:09)
[2016-08-31] MEDS: FOLIC ACID 1 MG TAB PO SCH (09:09)
[2016-08-31] MEDS: THIAMINE 100 MG TAB PO SCH ×2 (09:09→21:50)
[2016-08-31] MEDS: amLODIPine 5 MG TAB PO SCH (09:09)
--- NOTE | 2016-08-31 16:27 | IPN ---
DATE: 08/31/2016 VITAL SIGNS: Temperature 96.2, pulse 58, respirations 18, blood pressure 152/78. CURRENT MEDICATIONS: - Prozac 20 mg every morning - gabapentin 600 mg nightly - clonidine 0.2 mg nightly - Remeron 45 mg nightly - Zyprexa 10 mg nightly PSYCHIATRIC HISTORY: Patient again slept quite well last night; it took about 2 hours but he finally fell asleep two nights in a row on the Zyprexa. He likes the Zyprexa. He feels calmer during the daytime as well. His mood is improved. His racing thoughts are better. He is goal directed. He wants to join the [employer] to [facility]. He also has plans on going to [facility] ([employer]) . He plans on going back to Narcotics Anonymous (NA); he does have a sponsor. He would like to be discharged tomorrow morning, which appears reasonable. He does have housing in the neighborhood. MENTAL STATUS EXAMINATION: Mood and affect much improved. The patient is less anxious, he is calmer. Affect is brighter. Depression much improved. He is not homicidal or suicidal. The patient is non-psychotic. Racing thoughts are much improved. IMPRESSION: Major depression, recurrent. Alcohol use disorder. Cocaine use disorder. PLAN: Continue current psychotropics. We discussed lowering some of his psychotropics now that he is on the Zyprexa, but he is resistant. Of note is that his lipid profile is within normal limits. He was urged to be careful regarding metabolic issues on the Zyprexa.
[2016-08-31 18:00] VITALS: BP 129/79
[2016-08-31] MEDS: MIRTAZAPINE 15 MG TAB PO SCH (21:50)
[2016-08-31] MEDS: cloNIDine 0.2 MG TAB PO SCH (21:50)
[2016-08-31] MEDS: GABAPENTIN 300 MG CAP PO SCH (21:50)
[2016-08-31] MEDS: OLANZapine 10 MG TAB PO SCH (21:50)
[2016-09-01 06:31] VITALS: BP 153/88
[2016-09-01] MEDS ORDERED: AMLO5TAB2 PO (08:16)
[2016-09-01] MEDS ORDERED: HYDR25TAB PO (08:16)
[2016-09-01] MEDS ORDERED: FLUO20CA9 PO (08:28)
[2016-09-01] MEDS ORDERED: OLAN10TA2 PO (08:28)
[2016-09-01] MEDS ORDERED: GABA300C3 PO (08:28)
[2016-09-01] MEDS ORDERED: CATA0.2T PO (08:28)
[2016-09-01] MEDS ORDERED: MIRT45TA PO (08:28)
[2016-09-01] MEDS: THIAMINE 100 MG TAB PO SCH (09:07)
[2016-09-01] MEDS: MULTIVITAMINS/MINERALS THERAP 1 TAB PO SCH (09:07)
[2016-09-01] MEDS: FOLIC ACID 1 MG TAB PO SCH (09:07)
[2016-09-01] MEDS: HYDROCHLOROthiazide 6.25MG PER 1/4TAB PO SCH (09:07)
[2016-09-01] MEDS: FLUoxetine 20 MG CAP PO SCH (09:07)
[2016-09-01 09:08] VITALS: BP 167/82
[2016-09-01] MEDS: amLODIPine 5 MG TAB PO SCH (09:08)
--- NOTE | 2016-09-02 10:15 | MHDS ---
DATE OF ADMISSION: 08/18/2016 DATE OF DISCHARGE: 09/01/2016 VITAL SIGNS: Temperature 97.1, pulse 64, respirations 20, blood pressure 153/88. LABS: CBC and differential normal except for elevated red blood cell (RBC) at 6.15. MCV, MCH and MCHC are all low. RDW elevated at 15.3. Chem survey within normal limits. Cardiac enzymes were negative. Lipid profile was within normal limits. Toxicology positive for cocaine metabolites. DISCHARGE DIAGNOSES: 1. Major depression, recurrent, with history of psychosis. 2. Alcohol use disorder. 3. Cocaine use disorder. DISCHARGE MEDICATIONS: - Prozac 20 mg every morning - clonidine 0.2 mg at bedtime - Remeron 45 mg at bedtime - gabapentin 600 mg at bedtime - Zyprexa 10 mg at bedtime CHIEF COMPLAINT: Suicidal ideation with a plan. HISTORY OF PRESENT ILLNESS: This is a 56-year-old -Thai male living by himself on disability. The patient had reported to his language tutor that he had active suicidal thoughts with a plan. The language tutor brought him here to the hospital. The patient has been feeling depressed and suicidal for approximately one month. He did have a serious suicide attempt about three weeks prior to admission. He had overdosed on cocaine, heroin, and alcohol. He passed out in a parking lot, but was seen by a woman and 911 was called. The patient was brought here to the hospital and was admitted to the progressive care unit (PCU). However, the patient signed out against medical advice without any psychiatric input. Currently, he has suicidal thoughts of walking in front of a car or turning the gas on. The patient feels helpless and hopeless. The patient feels unproductive. He would like to have some meaningful daily activity. The patient self medicates with alcohol which only makes his depression worse. The patient also abuses cocaine and at times heroin. His appetite has been poor. He reports losing 30 pounds over the past six months. He has trouble falling asleep at night. The patient has been prescribed Celexa off and on over the years, but with history of poor medication compliance. The patient does have a history of hearing voices in the past and has been on Seroquel. PROGRESS ON THE UNIT: The patient was placed on Clinical [place] Withdrawal Assessment for Alcohol (CIWA)protocol, but did not show any major signs of withdrawal. The patient was agreeable to switching to another selective serotonin reuptake inhibitor (SSRI). We discussed a trial on Prozac, which he tolerated well. He still felt depressed however. He also reported severe insomnia. Various agents were tried with little success. Remeron was marginally effective. Clonidine and gabapentin were marginally effective. He refused to go back on Seroquel as that had been a big weight roge in the past. We discussed a trial on Zyprexa, which was started at 10 mg at bedtime with rapid beneficial effect. A baseline lipid profile was obtained. The patient was warned about risk of metabolic issues with the Zyprexa. The patient did have some chest pain. The hospitalist was called. EKG did show evidence of old myocardial infarction (MD). Patient was counseled on this to avoid nicotine and cocaine. The patient appeared motivated to avoid both substances upon discharge. He plans on going to upon discharge. He does have a sponsor. Mood and affect had improved dramatically by time of discharge. MENTAL STATUS EXAM: At time of discharge, affect was much improved. He had a good eye contact. Full range of affect. Anxiety was down. He was not suicidal or homicidal. No signs of psychosis. Grooming and hygiene was good. No signs of dangerousness. Insight and judgment appeared good. ASSESSMENT: Even though the patient had no apparent psychotic symptoms while on the unit, the only psychotropic that appeared to be effective for his severe insomnia was the Zyprexa. Hopefully, some of the other psychotropics can be weaned off with time. PLAN: Discharge today with outpatient mental health followup.
== END 2016-09-01 12:00 | disposition home or self-care (01) | DRG 885 ==
LOC: M ED 11:57 → M PSY 20:40
PROVIDERS: ADMIT Psychiatry & Neurology Psychiatry; ATTEND Psychiatry & Neurology Psychiatry
DX: F33.2 Major depressive disorder, recurrent severe without psychotic features (principal); F10.10 Alcohol abuse, uncomplicated; F14.10 Cocaine abuse, uncomplicated; Z91.5 Personal history of self-harm; B18.2 Chronic viral hepatitis C; Z91.19 Patient's noncompliance with other medical treatment and regimen; Z86.718 Personal history of other venous thrombosis and embolism; I10 Essential (primary) hypertension; G40.909 Epilepsy, unspecified, not intractable, without status epilepticus; F17.210 Nicotine dependence, cigarettes, uncomplicated; Z79.899 Other long term (current) drug therapy; M54.5 Low back pain; I25.2 Old myocardial infarction

== ENCOUNTER 2016-09-17 19:47 | Emergency (ER) | payer MEDICARE, MEDICAID ==
[~2016-09-17 19:47] MED LIST changes: +AMLO5TAB2 PO; +CATA0.2T PO; +FLUO20CA9 PO; +GABA300C3 PO; +HYDR-3713 PO; -HYDR1TAB97 PO; +HYDR25TAB PO; +MIRT45TA PO; +OLAN10TA2 PO
[2016-09-17] MEDS ORDERED: clonazePAM 0.5 MG TAB As Ordered ONE (20:38)
[2016-09-17] MEDS ORDERED: cloNIDine 0.2 MG TAB As Ordered ONE (20:42)
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
== END 2016-09-17 21:37 | disposition home or self-care (01) ==
LOC: M ED 19:47
DX: F41.9 Anxiety disorder, unspecified (principal); F43.9 Reaction to severe stress, unspecified; F32.9 Major depressive disorder, single episode, unspecified; B18.2 Chronic viral hepatitis C; I10 Essential (primary) hypertension; G40.909 Epilepsy, unspecified, not intractable, without status epilepticus; F17.210 Nicotine dependence, cigarettes, uncomplicated; Z86.718 Personal history of other venous thrombosis and embolism; Z79.899 Other long term (current) drug therapy; Z88.8 Allergy status to other drugs, medicaments and biological substances

== ENCOUNTER 2016-09-17 22:44 | Inpatient (IN) | payer MEDICARE, MEDICAID ==
[~2016-09-17] VITALS: Ht 188 cm; Wt 79.4 kg
[2016-09-17 23:44] LABS: MEAN CORPUSCULAR HEMOGLOBIN 25.3 pg (27.0-33.0); MEAN CORPUSCULAR HGB CONC 32.6 g/dl (32.0-36.5); MEAN CORPUSCULAR VOLUME 77.9 fl (80.0-96.0); RED CELL DISTRIBUTION WIDTH 14.9 % (11.5-14.5); WHITE BLOOD COUNT 7.4 K/mm3 (4.0-10.0)
[2016-09-18 00:01] LABS: AMPHETAMINES LEVEL URINE NEGATIVE (NEGATIVE); BENZODIAZEPINES URINE NEGATIVE (NEGATIVE); COCAINE METABOLITE URINE POSITIVE (NEGATIVE); METHADONE URINE NEGATIVE (NEGATIVE); OPIATES URINE NEGATIVE (NEGATIVE)
[2016-09-18 00:02] LABS: CONTROL LINE INT CTR LINE PRESENT; TRICYCLIC ANTIDEPRESS URINE NEGATIVE (NEGATIVE)
[2016-09-18 00:20] LABS: ALBUMIN 3.9 GM/DL (3.2-5.2); ALBUMIN/GLOBULIN RATIO 0.91 (1.00-1.93); ALKALINE PHOSPHATASE 83 U/L (45-117); ALT/SGPT 44 U/L (12-78); ANION GAP 9 MEQ/L (8-16); AST/SGOT 40 U/L (15-37); BILIRUBIN,DIRECT 0.2 MG/DL (0.0-0.2); BILIRUBIN,TOTAL 0.9 MG/DL (0.2-1.0); BLOOD UREA NITROGEN 16 MG/DL (7-18); CALCIUM LEVEL 8.3 MG/DL (8.5-10.1); CARBON DIOXIDE LEVEL 26 MEQ/L (21-32); CHLORIDE LEVEL 102 MEQ/L (98-107); GLOMERULAR FILTRATION RATE > 60.0 (>56); GLUCOSE, FASTING 83 MG/DL (70-105); POTASSIUM SERUM 3.8 MEQ/L (3.5-5.1); SODIUM LEVEL 137 MEQ/L (136-145); TOTAL PROTEIN 8.2 GM/DL (6.4-8.2)
[2016-09-18] MEDS ORDERED: BISOPROLOL FUMARATE 5 MG TAB As Ordered ONE (12:58)
[2016-09-18] MEDS ORDERED: hydroCHLOROthiazide 12.5 MG CAPSULE As Ordered ONE (12:58)
[2016-09-18] MEDS ORDERED: CitaloPRAM (CeleXA) 10 MG TABLET As Ordered ONE (12:58)
[2016-09-18] MEDS ORDERED: amLODIPine 5 MG TAB As Ordered ONE (12:59)
[2016-09-18] MEDS ORDERED: hydrOXYzine 25 MG TAB As Ordered ONE (12:59)
[2016-09-18] MEDS ORDERED: hydroCHLOROthiazide 25 MG TAB As Ordered ONE (13:03)
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
[2016-09-18 15:09] VITALS: BP 130/74
[2016-09-18] MEDS ORDERED: MAALOX 30 ML SUSP *UDC PO PRN (16:15)
[2016-09-18] MEDS ORDERED: MOM 30ML SUSPENSION UDC PO PRN (16:15)
[2016-09-18] MEDS ORDERED: traZODone 50 MG TAB PO PRN (16:15)
[2016-09-18 18:00] VITALS: BP 130/74
[2016-09-18] MEDS ORDERED: cloNIDine 0.1 MG TAB PO SCH (21:00)
[2016-09-18] MEDS: ACETAMINOPHEN TAB 650MG DOSE (2X325MG) PO PRN (21:26)
[2016-09-19 06:21] VITALS: BP 121/76
[2016-09-19] MEDS: HYDROCHLOROthiazide 6.25MG PER 1/4TAB PO SCH (08:57)
[2016-09-19] MEDS: amLODIPine 5 MG TAB PO SCH (08:57)
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
--- NOTE | 2016-09-19 11:32 | MHHPE ---
DATE OF ADMISSION: 09/18/2016 LEGAL STATUS AT ADMISSION: 9.39 legal status. CHIEF COMPLAINT: "I have been feeling very anxious, out of control and I thought about killing myself". HISTORY OF PRESENT ILLNESS: 56-year-old black male with history of depression with psychotic features and polysubstance dependence admitted to our unit on a 9.39 legal status. According to the chart, the patient came to be evaluated at the emergency department for very high anxiety and feeling like losing control and cutting himself. The patient admits during the interview that he went to see a friend to [place] and stopped using the medication for these few days. The patient admits that he has a problem with crack cocaine, but says that he was doing well up to Sunday when he was seen at the emergency department and relapsed. The patient says that he was so anxious and having frequent panic attacks and felt he was losing control. He was afraid he was going to harm himself. He also says that he found that he has bed bugs in his apartment and this contributed enormously to his increased anxiety and inability to sleep. During the interview, the patient reports depression, feelings of hopelessness and helplessness, low energy, and intermittent suicidal thoughts. Patient's sleep has been decreased and also affected his appetite. During the interview in the unit, there is no evidence of auditory or visual hallucinations or delusions. PAST PSYCHIATRIC HISTORY: The patient has been admitted to our facility several times. The patient says that he has been going to [facility] and his recovery group. The patient has been diagnosed of major depressive disorder, recurrent, alcohol dependency and cocaine dependency. MEDICAL HISTORY: The patient has been diagnosed of hypertension. FAMILY HISTORY: The patient denies having any relative with mental illness, substance abuse or suicide attempts. SOCIAL HISTORY: The patient lives by himself. He is on social security income and social security disability. The patient denies any physical, sexual or emotional abuse. His family is from [place] where he was raised. SUBSTANCE ABUSE HISTORY: As stated above, patient has alcohol and cocaine dependency. He admits relapse prior to coming to the hospital. He said that he was sober from his discharge from our unit until he was seen at the emergency room. REVIEW OF SYSTEMS: CONSTITUTIONAL: No weight loss, fever, chills, weakness or fatigue. HEENT: No visual loss, blurring of vision, double vision or yellow sclerae. No hearing loss, sneezing, congestion, runny nose or sore throat. SKIN: No rash or itching. CARDIOVASCULAR: No chest pain, chest pressure, chest discomfort, palpitations, or edema. RESPIRATORY: No shortness of breath, cough or sputum. GI: No anorexia, nausea, vomiting, or diarrhea. No abdominal pain or blood. : No burning or pain on urination. NEUROLOGIC: No headache, dizziness, syncope, paralysis, ataxia, numbness or tingling. MUSCULOSKELETAL: No muscle, back pain, joint pain or stiffness. HEMATOLOGIC: No anemia, bleeding, or bruising. LYMPHATICS: No history of splenectomy. ENDOCRINOLOGIC: No report of sweating, cold or heat intolerance. No polyuria or polydipsia. ALLERGIES: No history of asthma, hives, eczema or rhinitis. PHYSICAL EXAMINATION: As per physician salon assistant. LABS: CBC showed a hemoglobin of 15.8, MCV 77.9, MCH 25.3, RDW 14.9, the rest within normal limits. CMP is unremarkable except AST of 40. TSH within normal limits. Urine drug screen (UDS) is positive for cocaine. Blood alcohol level is negative. MENTAL STATUS EXAMINATION: The patient is dressed in [facility]. The patient is highly anxious with pressured speech. Mood is anxious as above. Affect is labile and congruent with mood. He is oriented to time, place, person and situation. Attention and concentration is impaired due to his high anxiety. Thought processes are coherent, logical and goal directed. The patient denies auditory or visual hallucinations. The patient does not have auditory, paranoid, persecutory, somatic grandiose, or druze delusions. The patient is reporting no homicidal thoughts. Judgment and insight are poor. DIAGNOSES: [place] I: Major depressive disorder, current . Cocaine dependency. Alcohol . [place] II: Deferred. [place] III: Hypertension. Seizure disorder. Hepatitis C. INITIAL TREATMENT PLAN: The patient was admitted on a 939 legal status. Complete history was obtained. With his permission, family will be contacted and database will be expanded. His medication regime will be reviewed and changed accordingly. He will be provided with protected environment. He will be treated with individual, group and milieu therapy. He will also receive supportive psychoeducation. Discharge planning will commence immediately. Length of stay will be between 7-10 days. Outpatient followup will be strongly recommended. Treatment plan will focus on depression, and substance abuse.
[2016-09-19] MEDS: FLUoxetine 20 MG CAP PO SCH (11:48)
[2016-09-19 18:00] VITALS: BP 128/73
[2016-09-19] MEDS: GABAPENTIN 300 MG CAP PO SCH (22:15)
[2016-09-19] MEDS: cloNIDine 0.2 MG TAB PO SCH (22:15)
[2016-09-19] MEDS: MIRTAZAPINE 15 MG TAB PO SCH (22:15)
[2016-09-19] MEDS: OLANZapine 10 MG TAB PO SCH (22:15)
[2016-09-20 06:23] VITALS: BP 134/94
[2016-09-20] MEDS: FLUoxetine 20 MG CAP PO SCH (09:31)
[2016-09-20] MEDS: HYDROCHLOROthiazide 6.25MG PER 1/4TAB PO SCH (09:32)
[2016-09-20] MEDS: amLODIPine 5 MG TAB PO SCH (09:32)
[2016-09-20] MEDS ORDERED: QUEtiapine FUMARATE 50 MG TAB PO PRN (10:00)
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
[2016-09-20 18:08] VITALS: BP_SYST 134; BP_SYST 90; BP_DIAS 52; BP_DIAS 73
[2016-09-20] MEDS ORDERED: QUEtiapine FUMARATE 50 MG TAB PO SCH (21:00)
[2016-09-20] MEDS: GABAPENTIN 300 MG CAP PO SCH (21:32)
[2016-09-20] MEDS: QUEtiapine FUMARATE 50 MG TAB PO SCH (21:33)
[2016-09-20] MEDS: MIRTAZAPINE 15 MG TAB PO SCH (21:33)
[2016-09-20] MEDS: cloNIDine 0.2 MG TAB PO SCH (21:33)
[2016-09-20] MEDS: OLANZapine 10 MG TAB PO SCH (21:33)
[2016-09-20] MEDS: ACETAMINOPHEN TAB 650MG DOSE (2X325MG) PO PRN (21:34)
[2016-09-21 06:36] VITALS: BP 142/83
[2016-09-21] MEDS: amLODIPine 5 MG TAB PO SCH (08:44)
[2016-09-21] MEDS: HYDROCHLOROthiazide 6.25MG PER 1/4TAB PO SCH (08:44)
[2016-09-21] MEDS: FLUoxetine 20 MG CAP PO SCH (08:44)
--- NOTE | 2016-09-21 15:30 | IPN ---
DATE: 09/20/2016 56-year-old white male admitted to our unit after was brought into the emergency department. Patient was highly anxious, stating that he felt like losing control, and was afraid he was going to cut himself. He was off his medications for a few days and also used cocaine recently before coming to the emergency department. MEDICATIONS: - Zyprexa 10 mg by mouth nightly - Remeron 45 mg by mouth nightly - Prozac 20 mg by mouth every morning - Neurontin 600 mg by mouth nightly - Seroquel 50 mg by mouth nightly plus 50 mg as needed for insomnia SUBJECTIVE: "I am very anxious, I could not sleep last night." OBJECTIVE: No major changes since his admission. Patient continues to be anxious, labile, irritable, impulsive, with pressured speech. Patient cannot contract for safety, continues to have intermittent suicidal thoughts. Denies side effect of medication but continues stating that he cannot sleep. MENTAL STATUS EXAMINATION: Patient is dressed in [facility]. Patient is cooperative during the interview, has fair eye contact. Speech is fast and pressured. Mood is anxious and labile. Affect is congruent with mood. No evidence of delusions or hallucinations. Memory, attention, and concentration are affected by his anxiety and lability. Patient is fully oriented. Patient reports intermittent suicidal thoughts. No homicidal ideation. Insight and judgment is limited. ASSESSMENT: 1. Major depressive disorder, recurrent. 2. Cocaine and alcohol dependency. PLAN: 1. Continue with Zyprexa 10 mg by mouth nightly. 2. Continue with Remeron 45 mg by mouth nightly. 3. Continue with Prozac 20 mg by mouth every morning. 4. Continue with Neurontin 600 mg by mouth nightly. 5. Continue with Seroquel 50 mg by mouth nightly plus 50 mg as needed for insomnia. 6. Continue with medication management and individual and group therapy.
--- NOTE | 2016-09-21 15:36 | IPN ---
DATE: 09/21/2016 56-year-old white male with history of depression, anxiety, and cocaine dependency, admitted with high anxiety, feeling like losing control and cutting himself. Patient was off his medication and relapsed shortly before admission. MEDICATIONS: - Zyprexa 10 mg by mouth nightly - Remeron 45 mg by mouth nightly - Prozac 20 mg by mouth every morning - Neurontin 600 mg by mouth nightly - Seroquel 50 mg by mouth nightly plus 50 mg as needed for insomnia SUBJECTIVE: "I am still very anxious and I cannot sleep well." OBJECTIVE: Patient continues anxious, labile, depressed with intermittent suicidal thoughts. Denies side effect from medication. Continues reporting insomnia. No evidence of auditory or visual hallucinations. MENTAL STATUS EXAMINATION: Patient is dressed in [facility]. Patient is cooperative during the interview. Speech is pressured. Mood is anxious and depressed. Affect is labile. No delusions or hallucinations. Short-term and long-term memory are fair. Patient is fully oriented. Patient continues to report intermittent suicidal thoughts but those are improving. No homicidal ideation. Insight and judgment is limited. ASSESSMENT: 1. Major depressive disorder, recurrent. 2. Cocaine dependency. 3. Alcohol abuse. PLAN: 1. Continue with Zyprexa 10 mg by mouth nightly. 2. Decrease Remeron to 15 mg by mouth nightly. 3. Continue with Prozac 20 mg by mouth every morning 4. Continue with Neurontin 600 mg by mouth nightly. 5. Continue with Seroquel 50 mg by mouth nightly plus 50 mg as needed for insomnia. 6. Continue with medication management and individual and group therapy.
[2016-09-21 18:00] VITALS: BP 150/68
[2016-09-21] MEDS: OLANZapine 10 MG TAB PO SCH (20:05)
[2016-09-21] MEDS: GABAPENTIN 300 MG CAP PO SCH (20:05)
[2016-09-21] MEDS: cloNIDine 0.2 MG TAB PO SCH (20:07)
[2016-09-21] MEDS: QUEtiapine FUMARATE 50 MG TAB PO SCH (20:07)
[2016-09-21] MEDS: ACETAMINOPHEN TAB 650MG DOSE (2X325MG) PO PRN (20:08)
[2016-09-21] MEDS ORDERED: MIRTAZAPINE 15 MG TAB PO SCH (21:00)
[2016-09-22 06:45] VITALS: BP 143/92
[2016-09-22] MEDS: HYDROCHLOROthiazide 6.25MG PER 1/4TAB PO SCH (09:15)
[2016-09-22 09:16] VITALS: BP 144/70
[2016-09-22] MEDS: amLODIPine 5 MG TAB PO SCH (09:16)
[2016-09-22] MEDS: FLUoxetine 20 MG CAP PO SCH (09:16)
[2016-09-22] MEDS: ACETAMINOPHEN TAB 650MG DOSE (2X325MG) PO PRN (09:18)
[2016-09-22] MEDS ORDERED: OLAN10TA2 PO (09:43)
[2016-09-22] MEDS ORDERED: FLUO20CA9 PO (09:43)
[2016-09-22] MEDS ORDERED: QUET5TAB PO (09:43)
[2016-09-22] MEDS ORDERED: MIRT15TA3 PO (09:43)
[2016-09-22] MEDS ORDERED: GABA300C3 PO (09:43)
[2016-09-22] MEDS ORDERED: CATA0.2T PO (09:48)
--- NOTE | 2016-09-22 23:12 | MHDS ---
DATE OF ADMISSION: 09/18/2016 DATE OF DISCHARGE: 09/22/2016 LEGAL STATUS ON ADMISSION: 9.39 legal status. HISTORY OF THE PRESENT ILLNESS: A 56-year-old black male with a history of depression with psychotic features and polysubstance dependency, admitted to our unit on a 9.39 legal status. According to the chart, the patient came to be evaluated at the emergency department for very high anxiety, feeling like losing control and hurting himself. The patient admits during the interview that he went to see a friend in [place], and he stopped taking the medication for a few days. He also admitted that he has a problem with crack cocaine and says that he used on Sunday, the day that he came to the emergency room but denies any use before that and denies any use between previous discharge from our unit to Sunday before admission. The patient says that he was so anxious that he was having frequent panic attacks and felt like losing control. He was afraid he was going to harm himself. He says that he had found that he has bedbugs in his apartment and this contributed enormously to increase his anxiety and he was unable to sleep. During the interview, the patient reported feeling depressed, feelings of hopelessness, helplessness, low energy and intermittent suicidal thoughts. The patient's sleep has been decreased and also reported affected his appetite. During the interview on the unit, there is no evidence of auditory or visual hallucinations or delusions. LABS AT ADMISSION: His CBC showed a hemoglobin of 13.8, MCV of 77.9, MCH of 25.3, RDW 14.9. CMP was unremarkable except AST of 40. TSH within normal limits. Urine drug screen (UDS) was positive for cocaine, rest negative. Blood alcohol level was negative. HOSPITAL COURSE: The patient was admitted on a 9.39 legal status and was restarted on previous to admission medication. He was restarted on olanzapine 10 mg by mouth nightly, Neurontin 600 mg by mouth nightly, Prozac 20 mg by mouth every morning, Remeron 45 mg by mouth nightly. After 24 hours of observation, the patient reported that he was not able to sleep at night, so Seroquel 50 mg was started at bedtime, which was effective. After review of the pharmacological profile, his Remeron was decreased to 15 mg by mouth nightly. With this medication, the patient was stabilized. His mood and anxiety improved as well and by 09/22/2016, he feels that he can continue his treatment as an outpatient, feels that his depression and anxiety are significantly better, that he has been able to talk to his landlord and he has entered the apartment and took care of bedbugs. He was denying suicidal or homicidal ideation. There was no evidence of auditory or visual hallucinations or delusions. Therefore, the patient was discharged on 09/22/2016 in stable condition. MEDICATIONS AT DISCHARGE: - Remeron 15 mg by mouth nightly - Seroquel 50 mg by mouth nightly - Zyprexa 10 mg by mouth nightly - Neurontin 600 mg by mouth nightly - Prozac 20 mg by mouth every morning MENTAL STATUS EXAMINATION AT DISCHARGE: The patient is dressed in [facility]. The patient is calm and cooperative. His speech is clear, coherent with normal rate and is spontaneous. The patient has good eye contact. Mood is euthymic. Affect is appropriate and congruent with mood. The patient is oriented to time, place, person and situation, maintains attention and concentration correctly. Instant recall, recent and remote memory are intact. Thought processes are coherent, logical and goal directed. The patient does not have auditory or visual hallucinations. The patient does not have paranoid, persecutory, somatic-induced or muslim delusions. The patient denies suicidal or homicidal ideation. Judgment and insight are fair. DISCHARGE DIAGNOSES: [place] I: Substance-induced mood disorder. Cocaine dependency. Alcohol abuse. Adjustment disorder with depressed and anxious mood. Major depressive disorder by history. [place] II: Deferred. [place] III: Hypertension. Hepatitis C. INSTRUCTIONS TO THE PATIENT: The patient is to continue taking his medications as prescribed and followup appointment. He is advised to maintain absolute sobriety from drugs and alcohol. The patient has a scheduled appointment for psychotropic medication management, individual psychotherapy and primary care physician.
== END 2016-09-22 16:00 | disposition home or self-care (01) | DRG 882 ==
LOC: M ED 22:44 → M PSY 09-18 08:03
PROVIDERS: ADMIT Psychiatry & Neurology Psychiatry; ATTEND Psychiatry & Neurology Psychiatry
DX: F43.23 Adjustment disorder with mixed anxiety and depressed mood (principal); F33.9 Major depressive disorder, recurrent, unspecified; F14.24 Cocaine dependence with cocaine-induced mood disorder; I10 Essential (primary) hypertension; G40.909 Epilepsy, unspecified, not intractable, without status epilepticus; B18.2 Chronic viral hepatitis C; F10.20 Alcohol dependence, uncomplicated; F41.9 Anxiety disorder, unspecified; G47.00 Insomnia, unspecified; F17.210 Nicotine dependence, cigarettes, uncomplicated; Z79.899 Other long term (current) drug therapy

== ENCOUNTER 2016-10-29 17:19 | Emergency (ER) | payer MEDICARE, MEDICAID ==
[~2016-10-29] VITALS: Ht 185.4 cm; Wt 74.1 kg
[~2016-10-29 17:19] MED LIST changes: +MIRT15TA3 PO; +QUET5TAB PO
[2016-10-29 18:50] LABS: BASO % 1.1 % (0.0-1.0); EOS # 0.2 K/mm3 (0.0-0.50); EOS % 3.3 % (0.0-3.0); LARGE UNSTAINED CELL # 0.1 K/mm3 (0.0-0.4); LARGE UNSTAINED CELL % 2.8 % (0.0-4.0); LYMPH # 1.1 K/mm3 (1.5-4.5); LYMPH % 20.1 % (24.0-44.0); MEAN CORPUSCULAR HEMOGLOBIN 25.8 pg (27.0-33.0); MEAN CORPUSCULAR HGB CONC 32.6 g/dl (32.0-36.5); MONO # 0.7 K/mm3 (0.0-0.8); MONO % 13.8 % (0.0-5.0); PLATELET COUNT, AUTOMATED 182 k/mm3 (150-450)
[2016-10-29 18:59] LABS: ANION GAP 11 MEQ/L (8-16); BLOOD UREA NITROGEN 7 MG/DL (7-18); CALCIUM LEVEL 7.9 MG/DL (8.5-10.1); CARBON DIOXIDE LEVEL 25 MEQ/L (21-32); CHLORIDE LEVEL 103 MEQ/L (98-107); CREATININE FOR GFR 1.09 MG/DL (0.70-1.30); GLOMERULAR FILTRATION RATE > 60.0 (>56); GLUCOSE, FASTING 109 MG/DL (70-105); POTASSIUM SERUM 3.5 MEQ/L (3.5-5.1); SODIUM LEVEL 139 MEQ/L (136-145)
--- NOTE | 2016-10-29 20:25 | ECGEPIP ---
Stationary ECG Study [facility] - ED Test Date: 2016-10-29 Pat Name: GIANNI GARCIA Department: Room: - Gender: M General Expeditor: jana : 1960 Requested By: MARTIN Gates Order Number: [id number] Reading MD: Shannan Albert Measurements Intervals [place] Rate: 77 P: 53 CO: 152 QRS: 17 QRSD: 90 T: 44 QT: 390 QTc: 442 Interpretive Statements SINUS RHYTHM POSSIBLE LEFT ATRIAL ENLARGEMENT POSSIBLE LEFT VENTRICULAR HYPERTROPHY NONSPECIFIC T-WAVE ABNORMALITY Electronically Signed On 10-29-2016 20:25:16 EST by Shannan Albert
[2016-10-29] MEDS ORDERED: ACETAMINOPHEN TAB 650MG DOSE (2X325MG) PO ONE (23:45)
[2016-10-30 01:17] VITALS: BP 133/73
--- NOTE | 2016-10-30 08:34 | REP ---
Chest one-view HISTORY: Syncope Comparison: 07/29/2016 There is blunting of the right costophrenic angle due to pleural thickening. The lungs are clear. The cardiac silhouette is enlarged. The pulmonary vasculature is normal in appearance. Impression: Cardiomegaly. Signed by Maycol Mortensen MD 10/30/2016 08:25 A
== END 2016-10-30 01:18 | disposition home or self-care (01) ==
LOC: EDBD 17:19 → M ED 18:53
DX: R55 Syncope and collapse (principal); F10.220 Alcohol dependence with intoxication, uncomplicated; I10 Essential (primary) hypertension; G40.909 Epilepsy, unspecified, not intractable, without status epilepticus; F43.20 Adjustment disorder, unspecified; B18.2 Chronic viral hepatitis C; I51.7 Cardiomegaly; Z79.899 Other long term (current) drug therapy; Z88.8 Allergy status to other drugs, medicaments and biological substances
CPT/HCPCS: 36415; 71010; 80048; 82550; 82553; 84484; 85025; 87880; 93005; 93041; 94760; 99285; G0480

== ENCOUNTER → 2017-01-23 | Outpatient (CLI) | payer MEDICARE, MEDICAID ==
[~2017-01-23] MED LIST changes: +GABA-282 PO; -GABA300C3 PO; +GASTROGRAFIN SOLUTION 30ML (Q9963) As Ordered ONE; +ISOVUE-370 76% 100ML VIAL (Q9967) As Ordered ONE
--- NOTE | 2017-01-23 17:05 | REP ---
CT ABDOMEN: REASON: Lower quadrant abdominal pain. COMPARISON EXAM: 11/06/2011. CONTRAST: 100 mL Isovue-370. There are chronic lung base changes status quo. There are no pleural or pericardial effusion. There is cardiomegaly. The liver and spleen are within normal limits. There is cholelithiasis. The pancreas, adrenal glands, and kidneys are within normal limits. The abdominal aorta and paraaortic regions are within normal limits. There is no free fluid or free is seen in the abdomen. The bowel loops and their mesenteries are within normal limits. CT PELVIS: There is no mass or adenopathy. There is no free fluid or free air. The sigmoid colon is noncontrast opacified limiting evaluation of it. I can not rule out the possibility of a short segment of proximal sigmoid colon wall thickening. Bone window technique throughout the exam shows chronic spinal degenerative changes, increased slightly from the prior exam. IMPRESSION:1. Possible short segment sigmoid colon wall thickening difficult to evaluate by CT. Consider colonoscopy for further evaluation. 2. Cholelithiasis unchanged. 3. Other findings as described above. Signed by Matt Kolb DO 01/23/2017 06:03 P
== END ==
LOC: M RAD 11:08
PROVIDERS: ATTEND Nurse Practitioner Family
DX: K80.00 Calculus of gallbladder with acute cholecystitis without obstruction (principal); I51.7 Cardiomegaly; R10.32 Left lower quadrant pain; R11.0 Nausea
CPT/HCPCS: 74177; Q9963; Q9967

== ENCOUNTER → 2017-01-24 | Outpatient (CLI) | payer MEDICARE, MEDICAID ==
[~2017-01-24] MED LIST changes: -GASTROGRAFIN SOLUTION 30ML (Q9963) As Ordered ONE; -ISOVUE-370 76% 100ML VIAL (Q9967) As Ordered ONE
[2017-01-24 12:49] LABS: MEAN CORPUSCULAR HEMOGLOBIN 25.7 pg (27.0-33.0); MEAN CORPUSCULAR HGB CONC 31.3 g/dl (32.0-36.5); MEAN CORPUSCULAR VOLUME 82.1 fl (80.0-96.0); RED CELL DISTRIBUTION WIDTH 14.7 % (11.5-14.5); WHITE BLOOD COUNT 5.1 K/mm3 (4.0-10.0)
[2017-01-24 13:32] LABS: ALBUMIN 3.9 GM/DL (3.2-5.2); ALBUMIN/GLOBULIN RATIO 0.87 (1.00-1.93); ALKALINE PHOSPHATASE 84 U/L (45-117); ALT/SGPT 50 U/L (12-78); ANION GAP 4 MEQ/L (8-16); AST/SGOT 39 U/L (15-37); BILIRUBIN,TOTAL 0.4 MG/DL (0.2-1.0); BLOOD UREA NITROGEN 12 MG/DL (7-18); CALCIUM LEVEL 8.9 MG/DL (8.5-10.1); CARBON DIOXIDE LEVEL 32 MEQ/L (21-32); CHLORIDE LEVEL 103 MEQ/L (98-107); CHOLESTEROL LEVEL 163 MG/DL (<200); GLOMERULAR FILTRATION RATE > 60.0 (>56); GLUCOSE, FASTING 87 MG/DL (70-105); SODIUM LEVEL 139 MEQ/L (136-145); TOTAL PROTEIN 8.4 GM/DL (6.4-8.2); TRIGLYCERIDES LEVEL 74 MG/DL (<150)
[2017-01-24 13:36] LABS: POTASSIUM SERUM 5.5 MEQ/L (3.5-5.1)
[2017-01-24 13:39] LABS: HEPATITIS B SURFACE ANTIBODY NEGATIVE (POSITIVE); VITAMIN B12 LEVEL 592 PG/ML (247-911)
[2017-01-29 00:10] LABS: ALT 46 IU/L (0-55); GGT 68 IU/L (0-65); HAPTOGLOBIN 66 mg/dL (34-200); HEPATITIS C QUANTITATION 6544720 IU/mL (.); HEPATITIS C VIRUS GENOTYPE 1a (.); NECROINFLAM SCORE 0.33 (0.00-0.17); NECROINFLAMM GRADE A1-Minimal activity (.); TOTAL BILIRUBIN 0.4 mg/dL (0.0-1.2)
== END ==
LOC: M LAB 11:31
PROVIDERS: ATTEND Nurse Practitioner Family
DX: B18.2 Chronic viral hepatitis C (principal); B16.9 Acute hepatitis B without delta-agent and without hepatic coma; B15.9 Hepatitis A without hepatic coma; E78.5 Hyperlipidemia, unspecified; E55.9 Vitamin D deficiency, unspecified; I10 Essential (primary) hypertension; D50.9 Iron deficiency anemia, unspecified

== ENCOUNTER → 2017-03-01 | Outpatient (REF) | payer MEDICARE, MEDICAID ==
[~2017-03-01] MED LIST changes: +ALBU17IN INH; +AMLO10TA PO; +AMLO10TA2 PO; +AUGM875T28 PO; +CELE10TA PO; +CELE20TA PO; +FLUO20CA19 PO; -FLUO20CA9 PO; +FOLI1TAB4 PO; +MUSC1CRE TOP; +OXAZ10CA3 PO; +PATIENT COMMENT; +PRED20TA PO; +PROC1CRE5 TOP; +QUET1TAB8 PO; +RISP1TAB42 PO; +SERO200T PO; +SERO50TA PO; +THIA100T6 PO; +THIA100TA PO; +TRAZ-136 PO; -TRAZ100T4 PO; +TRAZO50TA PO; +VITMTA PO; +ZEPA1TAB PO
[2017-03-01 15:51] LABS: ALKALINE PHOSPHATASE 77 U/L (45-117); ALT/SGPT 54 U/L (12-78); ANION GAP 5 MEQ/L (8-16); AST/SGOT 66 U/L (15-37); BILIRUBIN,TOTAL 0.4 MG/DL (0.2-1.0); BLOOD UREA NITROGEN 8 MG/DL (7-18); CALCIUM LEVEL 8.9 MG/DL (8.5-10.1); CARBON DIOXIDE LEVEL 30 MEQ/L (21-32); CHLORIDE LEVEL 103 MEQ/L (98-107); CREATININE FOR GFR 0.97 MG/DL (0.70-1.30); GLOMERULAR FILTRATION RATE > 60.0 (>56); GLUCOSE, FASTING 77 MG/DL (70-105); POTASSIUM SERUM 4.6 MEQ/L (3.5-5.1); SODIUM LEVEL 138 MEQ/L (136-145)
== END ==
LOC: M SFHCPLAZ 13:22
PROVIDERS: ATTEND Internal Medicine Infectious Disease
DX: B18.2 Chronic viral hepatitis C (principal); F17.210 Nicotine dependence, cigarettes, uncomplicated; F10.10 Alcohol abuse, uncomplicated; Z23 Encounter for immunization
CPT/HCPCS: 80053; 87899; 87900; 90471; 90746; G0463

== ENCOUNTER → 2017-04-11 | Outpatient (CLI) | payer MEDICARE, MEDICAID ==
[~2017-04-11] MED LIST changes: +ISOVUE-370 76% 100ML VIAL (Q9967) As Ordered ONE
== END ==
LOC: M RAD 17:34
PROVIDERS: ATTEND Nurse Practitioner Family
DX: I71.9 Aortic aneurysm of unspecified site, without rupture (principal); Z53.8 Procedure and treatment not carried out for other reasons

== ENCOUNTER 2017-05-08 00:57 | Inpatient (IN) | payer MEDICARE, MEDICAID ==
[~2017-05-08] VITALS: Ht 185.4 cm; Wt 76.9 kg
[~2017-05-08 00:57] MED LIST changes: -ALBU17IN INH; -AMLO10TA2 PO; -AUGM875T28 PO; -CELE10TA PO; -FOLI1TAB4 PO; -ISOVUE-370 76% 100ML VIAL (Q9967) As Ordered ONE; -MUSC1CRE TOP; -OXAZ10CA3 PO; -PATIENT COMMENT; -PRED20TA PO; -PROC1CRE5 TOP; -QUET1TAB8 PO; -RISP1TAB42 PO; -SERO200T PO; -THIA100T6 PO; -THIA100TA PO; -TRAZO50TA PO; -VITMTA PO; -ZEPA1TAB PO
[2017-05-08 01:26] LABS: BASO # 0.2 K/mm3 (0.0-0.2); BASO % 1.3 % (0.0-1.0); EOS # 0.4 K/mm3 (0.0-0.50); EOS % 3.8 % (0.0-3.0); LARGE UNSTAINED CELL # 0.4 K/mm3 (0.0-0.4); LARGE UNSTAINED CELL % 3.5 % (0.0-4.0); LYMPH # 4.4 K/mm3 (1.5-4.5); LYMPH % 37.4 % (24.0-44.0); MEAN CORPUSCULAR VOLUME 86.6 fl (80.0-96.0); MONO # 0.7 K/mm3 (0.0-0.8); MONO % 6.2 % (0.0-5.0); NEUTROPHILS # 5.6 K/mm3 (1.8-7.7); NEUTROPHILS % 47.8 % (36.0-66.0); PLATELET COUNT, AUTOMATED 259 k/mm3 (150-450); WHITE BLOOD COUNT 11.8 K/mm3 (4.0-10.0)
[2017-05-08 01:48] LABS: ALBUMIN 4.1 GM/DL (3.2-5.2); ALBUMIN/GLOBULIN RATIO 0.87 (1.00-1.93); ALKALINE PHOSPHATASE 93 U/L (45-117); ALT/SGPT 35 U/L (12-78); ANION GAP 25 MEQ/L (8-16); AST/SGOT 29 U/L (15-37); BILIRUBIN,DIRECT 0.2 MG/DL (0.0-0.2); BILIRUBIN,TOTAL 0.5 MG/DL (0.2-1.0); BLOOD UREA NITROGEN 18 MG/DL (7-18); CARBON DIOXIDE LEVEL 14 MEQ/L (21-32); CHLORIDE LEVEL 97 MEQ/L (98-107); CREATININE FOR GFR 2.35 MG/DL (0.70-1.30); GLOMERULAR FILTRATION RATE 36.9 (>56); GLUCOSE, FASTING 133 MG/DL (70-105); POTASSIUM SERUM 4.6 MEQ/L (3.5-5.1); SODIUM LEVEL 136 MEQ/L (136-145); TOTAL PROTEIN 8.8 GM/DL (6.4-8.2)
[2017-05-08] MEDS ORDERED: NS 1,000 ML IV ONE ×2 (02:30)
--- NOTE | 2017-05-08 02:30 | REPUSA ---
CLINICAL HISTORY: Overdose. TECHNIQUE: Multiple axial CT images were obtained through the brain without IV contrast material. COMMENTS: There is normal configuration of sella turcica. There are no intra or extra-axial collections. There is no mass effect or midline shift. There is no evidence of hematoma formation. No hydrocephalus is p resent. The ventricles are symmetrical. No abnormal calcifications are present. There is diffuse age-appropriate cerebellar and cerebral atrophy with proportionally dilated ventricl es and cortical sulci. There are bilateral periventricular and subcortical white matter hypolucencies compatible with mild c hronic microvascular disease. Otherwise, no significant focal abnormalities are seen either in the posterior fossa or supratentoria l compartment. IMPRESSION: 1. Age-appropriate cerebellar and cerebral atrophy. 2. Mild chronic microvascular disease. 3. No evidence of acute intracranial pathology. No change is noted since the prior exam on 07/29/2016. Thank you for your kind referral of this patient.
[2017-05-08 02:34] LABS: ABG BASE EXCESS -0.4 (-2.0-2.0); ABG HCO3 24.6 MEQ/L (22.0-26.0); ABG PARTIAL PRESSURE CO2 41.6 mmHg (35.0-45.0); ABG PARTIAL PRESSURE O2 64.5 mmHg (75.0-100.0); ABG STANDARD HCO3 24.1 MEQ/L (22.0-26.0); ABG TOTAL CO2 25.9 MEQ/L (22.0-29.0)
[2017-05-08 04:05] LABS: METHADONE URINE NEGATIVE (NEGATIVE)
[2017-05-08] MEDS ORDERED: ASPIRIN 325 MG TAB PO ONE (04:30)
[2017-05-08] MEDS ORDERED: SERO200T PO (06:00)
[2017-05-08] MEDS ORDERED: VITMTA PO (06:00)
[2017-05-08] MEDS ORDERED: ZEPA1TAB PO (06:00)
[2017-05-08] MEDS ORDERED: PATIENT COMMENT (06:01)
[2017-05-08] MEDS ORDERED: ONDANSETRON 4MG/2ML VIAL (J2405) IV PRN (06:15)
[2017-05-08] MEDS ORDERED: ACETAMINOPHEN TAB 650MG DOSE (2X325MG) PO PRN (06:15)
[2017-05-08] MEDS ORDERED: LORazepam 2 MG TAB PO PRN (06:15)
--- NOTE | 2017-05-08 06:32 | HPEPDOC ---
Medical History and Physical Date of Admission 05/08/17 History and Physical PRIMARY CARE PROVIDER: Sherine Olguin ATTENDING: Dr. Wally Akins CHIEF COMPLAINT: Cocaine,alcohol intoxication HISTORY OF PRESENT ILLNESS: 56-year-old male. With past history of DVT, seizure disorder, hypertension, depression, anxiety, substance abuse, hepatitis C who presents with intoxication. Most of the history was obtained from the ED staff as well as medical records as patient is lethargic at this point. Patient has apparently been belligerent and was brought in by police. Patient had a bruise in his right frontoparietal region for which a CT head was done and negative for acute findings. The patient was apparently up and talking on the phone earlier per ED staff. He does state that he was drinking alcohol however does not remember using cocaine. Patient denies chest pain. In the ED patient was noted to have new EKG changes, with concern for ischemia given his recent cocaine use. He was also noted to have worsening of his kidney function and started on IV fluids. History is limited at this point, however patient is hemodynamically stable. PAST MEDICAL HISTORY: As per HPI PAST SURGICAL HISTORY: Unable to obtain SOCIAL HISTORY: Positive for tobacco, alcohol, cocaine use. FAMILY HISTORY: Noncontributory ALLERGIES: Please see below. REVIEW OF SYSTEMS: Unable to obtain at this time however patient denies chest pain. HOME MEDICATIONS: Please see below. PHYSICAL EXAMINATION: Vitals: (see below) General: No acute distress, laying comfortably in bed. HEENT: Moist mucous membranes. Bruising the right frontoparietal region. Neck: No JVD or lymphadenopathy Cardiac: RRR Pulm: Clear to auscultation b,l. No wheezing, rhonchi Abd: NT,ND + BS Ext: No edema or cyanosis Neuro: Following commands moving all extremities. Alert and oriented to person and place. Lethargic however easily arousable. LABORATORY DATA: See below. IMAGING: CT head on 05/08/17 IMPRESSION: 1. Age-appropriate cerebellar and cerebral atrophy. 2. Mild chronic microvascular disease. 3. No evidence of acute intracranial pathology. No change is noted since the prior exam on . MICROBIOLOGY: Please see below. ASSESSMENT,PLAN: 1. Cocaine abuse,alcohol intoxication - brought in by police. History of cocaine abuse. Upon evaluation, patient was lethargic however easily arousable. History is very limited at this time and will need to be obtained further once patient is more awake. ED staff states that the patient was recently up and talking on the phone. Neuro checks. CIWA. Banana bag. 2. Abnormal EKG with T-wave inversions V4 to V6 and inferior leads. These appear to be new. Patient denies chest pain. We will monitor on telemetry given recent use of cocaine. Avoid beta blockers. Echocardiogram. Will need outpatient stress test. 3. Acute kidney injury- likely secondary to recent use of cocaine. Will start IV fluids. Urine studies. Avoid nephrotoxins. Strict I,O. 4. Abnormal urinalysis- patient is not awake enough to state if he has symptoms. We will start Rocephin for now pending culture. 5. History of DVT 6. History of seizures 7. History of hypertension- will start amlodipine when patient is awake enough to tolerate a diet. Hydralazine as needed for now. 8. History of depression and anxiety Due to prophylaxis- heparin subcutaneous Patient followed by Dr. Wally Akins starting 05/08/17 at 7 AM. Vital Signs Vital Signs Date Time Temp Pulse Resp B/P (MAP) Pulse Ox O2 Delivery O2 Flow Rate FiO2 05/08/17 06:12 16 159/95 (116) 94 Room Air 05/08/17 06:01 65 05/08/17 05:20 97.0 Laboratory Data Labs 24H Laboratory Tests 2 05/08/17 01:04: White Blood Count 11.8H, Red Blood Count 5.58, Hemoglobin 14.5, Hematocrit 48.3 , Mean Corpuscular Volume 86.6, Mean Corpuscular Hemoglobin 26.0L, Mean Corpuscular Hemoglobin Concent 30.0L, Red Cell Distribution Width 15.0H, Platelet Count 259, Neutrophils (%) (Auto) 47.8, Lymphocytes (%) (Auto) 37.4, Monocytes (%) (Auto) 6.2H, Eosinophils (%) (Auto) 3.8H, Basophils (%) (Auto) 1.3H, Neutrophils # (Auto) 5.6, Lymphocytes # (Auto) 4.4, Monocytes # (Auto) 0.7 , Eosinophils # (Auto) 0.4, Basophils # (Auto) 0.2, Large Unclassified Cells % 3.5, Large Unclassified Cells # 0.4, Anion Gap 25H, Glomerular Filtration Rate 36.9L, Calcium Level 9.0, Aspartate Amino Transf (AST/SGOT) 29, Alanine Aminotransferase (ALT/SGPT) 35, Alkaline Phosphatase 93, Total Bilirubin 0.5, Direct Bilirubin 0.2, Total Creatine Kinase 387H, Creatine Kinase MB 4.4H, Creatine Kinase MB Relative Index 1.13, Troponin I < 0.02, Total Protein 8.8H, Albumin 4.1, Albumin/Globulin Ratio 0.87L, Thyroid Stimulating Hormone (TSH) 1.810, Salicylates Level 3.6L, Acetaminophen Level < 2.0L, Ethyl Alcohol Level < 0.003 05/08/17 02:27: Blood Gas Bicarbonate Standard 24.1, Arterial Blood pH 7.390, Arterial Blood Partial Pressure CO2 41.6, Arterial Blood Partial Pressure O2 64.5L, Arterial Blood Total CO2 25.9, Arterial Blood HCO3 24.6, Arterial Blood Base Excess -0.4 , Arterial Blood Oxygen Saturation 92.9L 05/08/17 03:35: Urine Appearance CLEAR, Urine Color YELLOW, Urine pH 5.0, Urine Specific [place] 1.018, Urine Protein 2+H, Urine Glucose (UA) NEGATIVE, Urine Ketones TRACEH, Urine Urobilinogen 2.0H, Urine Bilirubin NEGATIVE, Urine Leukocyte Esterase NEGATIVE, Urine Blood 1+H, Urine Nitrite NEGATIVE, Urine WBC (Auto) 11H , Urine RBC (Auto) 4H, Urine Hyaline Casts (Auto) 13, Urine Bacteria (Auto) NEGATIVE, Urine Squamous Epithelial Cells 0, Urine Uric Acid Crystals (Auto) SMALL, Urine Mucus (Auto) SMALL, Urine Sperm (Auto) SMALLH, Urine Amphetamines Screen NEGATIVE, Urine Benzodiazepines Screen NEGATIVE, Urine Opiates Screen NEGATIVE, Urine Methadone Screen NEGATIVE, Urine Barbiturates Screen NEGATIVE, Urine Phencyclidine Screen NEGATIVE, Urine Cocaine Metabolite Screen POSITIVEH, Urine Cannabinoids Screen POSITIVEH 05/08/17 05:54: CBC/BMP Laboratory Tests 05/08/17 01:04 Red Blood Count 5.58, Mean Corpuscular Volume 86.6, Mean Corpuscular Hemoglobin 26.0 L, Mean Corpuscular Hemoglobin Concent 30.0 L, Red Cell Distribution Width 15.0 H, Neutrophils (%) (Auto) 47.8, Lymphocytes (%) (Auto) 37.4, Monocytes (%) (Auto) 6.2 H, Eosinophils (%) (Auto) 3.8 H, Basophils (%) (Auto) 1.3 H, Neutrophils # (Auto) 5.6, Lymphocytes # (Auto) 4.4, Monocytes # (Auto) 0.7, Eosinophils # (Auto) 0.4, Basophils # (Auto) 0.2 Home Medications Scheduled Amlodipine Besylate (Norvasc) 10 Mg Tab, 10 MG PO DAILY Citalopram Hydrobromide (Celexa) 20 Mg Tab, 20 MG PO DAILY Elbasvir/Grazoprevir (Zepatier 50-100 mg) 1 Tab Tab, 1 TAB PO DAILY Multivitamins *[facility] STOCKED* (Thera M Plus *[facility] STOCKED*) 1 Tab Tab, 1 TAB PO DAILY Scheduled PRN Quetiapine Fumerate (Seroquel) 200 Mg Tab, 200 MG PO QHS PRN for SLEEP Miscellaneous Medications [Patient Comment] PATIENT IS UNRESEPONSIVE. GOT INFORMATION FROM EXTERNAL NMEDICATION HISTORY AND [facility] VISIT. MONICA CALL PHARMACY IN MORNING TO VERIFY. Allergies Coded Allergies: Haloperidol (Verified Allergy, Severe, SWELLING, 04/18/17) Lisinopril (Verified Allergy, Severe, anaphylaxis, 04/18/17) REGINA MITCHELL MD May 08, 2017 06:32
[2017-05-08] MEDS ORDERED: MULTIVITAMIN -ADULT INJECTION 10 ML, THIAMINE INJection 100 MG, FOLIC ACID 1 MG in NS 1... IV ONE (07:00)
[2017-05-08] MEDS: cefTRIAXone SOD 1 GM in D5W MINI-BAG PLUS 50 ML IV SCH (07:39)
[2017-05-08] MEDS: HEPARIN SOD (PORCINE) 5000 UNITS/ML VIAL SC SCH ×3 (08:56→21:57)
[2017-05-08] MEDS: hydrALAZINE INJ 20 MG/ML VIAL IV PRN (09:02)
[2017-05-08 11:45] VITALS: BP 182/95
[2017-05-08 12:00] VITALS: BP 140/80
[2017-05-08 13:00] VITALS: BP 156/86
[2017-05-08 14:17] LABS: MEAN CORPUSCULAR HEMOGLOBIN 26.4 pg (27.0-33.0); MEAN CORPUSCULAR HGB CONC 32.9 g/dl (32.0-36.5); RED CELL DISTRIBUTION WIDTH 15.3 % (11.5-14.5)
[2017-05-08 14:29] LABS: MEAN CORPUSCULAR VOLUME 80.1 fl (80.0-96.0)
[2017-05-08 14:48] LABS: ALBUMIN 3.1 GM/DL (3.2-5.2); ALBUMIN/GLOBULIN RATIO 0.84 (1.00-1.93); ALT/SGPT 28 U/L (12-78); ANION GAP 8 MEQ/L (8-16); AST/SGOT 32 U/L (15-37); BILIRUBIN,TOTAL 0.6 MG/DL (0.2-1.0); BLOOD UREA NITROGEN 13 MG/DL (7-18); CALCIUM LEVEL 8.4 MG/DL (8.5-10.1); CARBON DIOXIDE LEVEL 26 MEQ/L (21-32); CHLORIDE LEVEL 108 MEQ/L (98-107); CREATININE FOR GFR 1.02 MG/DL (0.70-1.30); GLUCOSE, FASTING 124 MG/DL (70-105); POTASSIUM SERUM 3.9 MEQ/L (3.5-5.1); SODIUM LEVEL 142 MEQ/L (136-145); TOTAL PROTEIN 6.8 GM/DL (6.4-8.2)
[2017-05-08 14:58] LABS: ALKALINE PHOSPHATASE 71 U/L (45-117)
[2017-05-08 15:00] LABS: GLOMERULAR FILTRATION RATE > 60.0 (>56)
[2017-05-08 16:00] VITALS: BP 166/80
[2017-05-08] MEDS ORDERED: NS 1,000 ML IV SCH (17:00)
[2017-05-08 20:00] VITALS: BP 154/89
[2017-05-09] VITALS (8 sets, daily range): BP systolic 127–180; BP diastolic 88–99
[2017-05-09 06:13] LABS: MEAN CORPUSCULAR HEMOGLOBIN 25.9 pg (27.0-33.0); MEAN CORPUSCULAR HGB CONC 32.6 g/dl (32.0-36.5); MEAN CORPUSCULAR VOLUME 79.2 fl (80.0-96.0); RED CELL DISTRIBUTION WIDTH 14.9 % (11.5-14.5); WHITE BLOOD COUNT 5.8 K/mm3 (4.0-10.0)
[2017-05-09] MEDS: cefTRIAXone SOD 1 GM in D5W MINI-BAG PLUS 50 ML IV SCH (06:14)
[2017-05-09] MEDS: HEPARIN SOD (PORCINE) 5000 UNITS/ML VIAL SC SCH ×3 (06:15→21:54)
[2017-05-09 06:32] LABS: ANION GAP 7 MEQ/L (8-16); BLOOD UREA NITROGEN 15 MG/DL (7-18); CALCIUM LEVEL 8.2 MG/DL (8.5-10.1); CARBON DIOXIDE LEVEL 27 MEQ/L (21-32); CHLORIDE LEVEL 107 MEQ/L (98-107); CREATININE FOR GFR 0.96 MG/DL (0.70-1.30); GLOMERULAR FILTRATION RATE > 60.0 (>56); GLUCOSE, FASTING 87 MG/DL (70-105); POTASSIUM SERUM 4.2 MEQ/L (3.5-5.1); SODIUM LEVEL 141 MEQ/L (136-145)
[2017-05-09] MEDS ORDERED: SLF 3 ML SYR IV PRN (10:00)
[2017-05-09] MEDS: hydrALAZINE INJ 20 MG/ML VIAL IV PRN (10:12)
--- NOTE | 2017-05-09 10:41 | ECGEPIP ---
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
--- NOTE | 2017-05-09 10:59 | IPN ---
DATE: 05/09/2017 Mr. Guerra is feeling better this morning. He does not have any complaints of pain. No chest pain. He is not short of breath. He does feel a little shaky. Says he has been in alcohol withdrawal before and has had seizures. Temperature is 98.6, pulse 70, respiratory rate 18, blood pressure 180/94, 98% on room air. He is thin-appearing. In no acute distress. Somewhat anxious but only mildly so. Mucous membranes are moist. Neck is supple. Breathing is symmetrical. I:E ratio is 1:3. No wheezes, rales or rhonchi. HEART: Regular rate and rhythm. Normal S1, S2. No significant arrhythmia on monitor. ABDOMEN: Scaphoid, soft, nontender. EXTREMITIES: No significant lower extremity edema. White cell count 5.8, hemoglobin 13.6, platelets of 214. BUN 15, creatinine 0.96, CK 1062, troponin has been unremarkable. EKG changes that were previously noted upon admission laterally have resolved. ASSESSMENT: This is a 56-year-old with polysubstance intoxication and metabolic encephalopathy. PLAN: 1. Polysubstance use. The patient is at risk for alcohol withdrawal. The patient has been started on Serax, thiamine and folate. He does have a history of withdrawal. 2. The patient had abnormal EKG with T wave inversions laterally, as well as in the inferior leads. Inferior leads appear to be constant. Lateral leads have resolved. There is no elevation in troponin. He has likely failed a stress test with cocaine. Would benefit from outpatient stress test should he choose to go that route. 3. Acute kidney injury, resolved. 4. The patient has ongoing rhabdomyolysis. Most likely from substance use. 5. The patient did complain of cough this morning and did on physical examination feel warm to touch. I have ordered a chest x-ray and we will switch antibiotics to Unasyn, presuming the patient aspirated during his intoxication. 6. The patient does have a history of seizures. 7. Deep vein thrombosis (DVT) prophylaxis has been ordered.
[2017-05-09] MEDS: FOLIC ACID 1 MG TAB PO SCH (11:08)
[2017-05-09] MEDS: AMPICILLIN SOD/SULBACTAM SOD 3 GM in D5W MINI-BAG PLUS 100 ML IV SCH ×3 (11:08→22:27)
[2017-05-09] MEDS: THIAMINE 100 MG TAB PO SCH (11:08)
[2017-05-09] MEDS: OXAZEPAM 10 MG CAP PO SCH ×2 (11:08→17:55)
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
--- NOTE | 2017-05-09 12:03 | ECGEPIP ---
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
[2017-05-09] MEDS: SLF 3 ML SYR IV SCH ×2 (15:22→21:54)
[2017-05-09] MEDS: OXAZEPAM 10 MG CAP PO PRN (21:53)
[2017-05-10] VITALS (7 sets, daily range): BP systolic 143–178; BP diastolic 82–98
[2017-05-10] MEDS: OXAZEPAM 10 MG CAP PO SCH ×4 (00:27→21:50)
[2017-05-10] MEDS: AMPICILLIN SOD/SULBACTAM SOD 3 GM in D5W MINI-BAG PLUS 100 ML IV SCH ×4 (04:57→22:35)
[2017-05-10] MEDS: HEPARIN SOD (PORCINE) 5000 UNITS/ML VIAL SC SCH ×3 (05:01→21:50)
[2017-05-10] MEDS: SLF 3 ML SYR IV SCH ×3 (05:02→22:36)
--- NOTE | 2017-05-10 07:07 | ECGEPIP ---
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
--- NOTE | 2017-05-10 07:08 | ECGEPIP ---
Stationary ECG Study [facility] - ED Test Date: 2017-05-08 Pat Name: GIANNI GARCIA Department: Room: [place] [address] Gender: M Journalism Internship: balbir : 1960 Requested By: REENA MEDINA Order Number: [id number] Reading MD: Shannan Albert Measurements Intervals [place] Rate: 62 P: 31 MS: 143 QRS: 30 QRSD: 82 T: -62 QT: 446 QTc: 456 Interpretive Statements SINUS RHYTHM WITH OCCASIONAL SUPRAVENTRICULAR PREMATURE COMPLEXES LEFT VENTRICULAR HYPERTROPHY AND ST-T CHANGE VS ISCHEMIA, CLINICAL CORRELATION Electronically Signed On 05-10-2017 7:08:19 EDT by Shannan Albert
[2017-05-10] MEDS: OXAZEPAM 10 MG CAP PO PRN (07:09)
[2017-05-10 08:05] LABS: MEAN CORPUSCULAR HEMOGLOBIN 25.3 pg (27.0-33.0); MEAN CORPUSCULAR HGB CONC 31.7 g/dl (32.0-36.5); MEAN CORPUSCULAR VOLUME 79.6 fl (80.0-96.0); RED CELL DISTRIBUTION WIDTH 14.9 % (11.5-14.5); WHITE BLOOD COUNT 5.5 K/mm3 (4.0-10.0)
[2017-05-10 08:11] LABS: ANION GAP 7 MEQ/L (8-16); BLOOD UREA NITROGEN 9 MG/DL (7-18); CALCIUM LEVEL 8.9 MG/DL (8.5-10.1); CARBON DIOXIDE LEVEL 27 MEQ/L (21-32); CHLORIDE LEVEL 105 MEQ/L (98-107); CREATININE FOR GFR 0.87 MG/DL (0.70-1.30); GLOMERULAR FILTRATION RATE > 60.0 (>56); GLUCOSE, FASTING 95 MG/DL (70-105); POTASSIUM SERUM 3.9 MEQ/L (3.5-5.1); SODIUM LEVEL 139 MEQ/L (136-145)
[2017-05-10] MEDS: THIAMINE 100 MG TAB PO SCH (09:31)
[2017-05-10] MEDS: FOLIC ACID 1 MG TAB PO SCH (09:32)
[2017-05-10] MEDS ORDERED: OXAZEPAM 10 MG CAP PO PRN (10:30)
[2017-05-10] MEDS ORDERED: ALBUTEROL SULFATE 2.5 MG/0.5 ML INH NEB SOLN INH PRN (11:00)
--- NOTE | 2017-05-10 11:15 | IPN ---
DATE: 05/10/2017 Patient is having cough, nonproductive of sputum. He has been having subjective fevers. No chest pain. Not short of breath. He feels less tremulous than yesterday. Temperature currently is 99.4, T-max 100.3, pulse 75, respiratory rate 18, blood pressure 170/82, 96% on room air. Intake and output notable for a positive fluid balance of 2175. He is awake, appropriately interactive, flattened affect. Mucous membranes moist. Neck supple. He is warm to the touch. Breathing is symmetrical. There are decreased breath sounds in the left base when compared to the right. No rhonchi, scattered polyphonic wheeze. Heart is in a regular rate and rhythm, not tachycardic. Radial pulses 2+. Capillary refill less than 2 seconds. Abdomen is soft, doughy, nontender. No lower extremity edema. White count 5.5, hemoglobin 14.1, platelets 214, BUN 9, creatinine 0.87. Blood cultures are thus far negative. Chest x-ray shows no active disease. My assessment is as follows: This is a 56-year-old with polysubstance intoxication and metabolic encephalopathy and most likely aspiration pneumonia. Plan will be as follows: 1. The patient has polysubstance use and presented with intoxication and is at risk for alcohol withdrawal, was on Serax, which I can wean today. He does have a history of withdrawal and does say he has had withdrawal seizures. 2. The patient had an abnormal EKG with T wave inversions in the inferior leads. 3. The patient has resolved acute kidney injury. 4. The patient had rhabdomyolysis most likely from substance use. 5. The patient's presentation is suspicious at this point for aspiration pneumonia. I am going to repeat a chest x-ray as he has decreased aeration in the left base. Will order nebs and steroids. 6. Patient has a history of seizures. 7. Patient has appropriate deep vein thrombosis (DVT) prophylaxis.
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
[2017-05-10] MEDS: IPRATROPIUM 0.5MG/ALBUTEROL 2.5MG INH SOL UD 3ML (DUONEB)(J7620) NEB SCH ×3 (12:24→20:10)
[2017-05-10] MEDS: predniSONE 20 MG TAB PO SCH (13:39)
--- NOTE | 2017-05-10 21:02 | ECHO ---
DATE OF PROCEDURE: 05/10/2017 REFERRING PHYSICIAN: Harinder Varela MD INDICATION: Abnormal ECG. HEIGHT: 185 cm WEIGHT: 75 kg DIMENSIONS: IVS: 1.2 LV: 5.7 LVPW: 1.1 LA: 3.2 Aorta: 3.7 FINDINGS: Study is of good technical quality. The patient is in sinus rhythm. Left ventricle is normal size and systolic function with estimated ejection fraction (EF) of 65%. Mild left ventricular hypertrophy (LVH) is present. Right ventricle is normal size and systolic function. Both atria appear normal. Aortic valve is minimally sclerotic, but has three cusps and normal mobility. Mitral and tricuspid valves appear normal. Pulmonic valve was not well seen. No pericardial effusion is present. Inferior vena cava is normal size. Aortic root appears normal. Aortic arch was not well seen. Abdominal aorta appears normal. Doppler interrogation of aortic valve reveals no stenosis and trace insufficiency. There is normally functioning mitral valve. Mild tricuspid insufficiency is present. Calculated pulmonary artery pressure is in 30s corresponding to mild pulmonary hypertension. Mitral inflow pattern and tissue Doppler imaging of mitral annulus reveals grade 1 diastolic dysfunction. CONCLUSIONS: 1. Study is of good technical quality. 2. Normal left ventricle (LV) size with mild LVH and preserved LV systolic function. Grade 1 diastolic dysfunction. 3. Mild aortic insufficiency. 4. Normal central venous pressure and likely mild pulmonary hypertension. COMMENTS: Subacute bacterial endocarditis (SBE) prophylaxis is not recommended. MTDD
[2017-05-11 02:00] VITALS: BP 162/90
[2017-05-11] MEDS: AMPICILLIN SOD/SULBACTAM SOD 3 GM in D5W MINI-BAG PLUS 100 ML IV SCH ×2 (05:51→10:36)
[2017-05-11] MEDS: SLF 3 ML SYR IV SCH (05:51)
[2017-05-11] MEDS: HEPARIN SOD (PORCINE) 5000 UNITS/ML VIAL SC SCH (05:51)
[2017-05-11] MEDS: OXAZEPAM 10 MG CAP PO SCH (05:51)
[2017-05-11 06:00] VITALS: BP 154/92
[2017-05-11 06:54] LABS: MEAN CORPUSCULAR HEMOGLOBIN 25.8 pg (27.0-33.0); MEAN CORPUSCULAR HGB CONC 32.3 g/dl (32.0-36.5); MEAN CORPUSCULAR VOLUME 79.8 fl (80.0-96.0); RED CELL DISTRIBUTION WIDTH 14.9 % (11.5-14.5); WHITE BLOOD COUNT 8.3 K/mm3 (4.0-10.0)
[2017-05-11] MEDS: IPRATROPIUM 0.5MG/ALBUTEROL 2.5MG INH SOL UD 3ML (DUONEB)(J7620) NEB SCH ×2 (07:05→11:09)
[2017-05-11 07:06] LABS: ANION GAP 10 MEQ/L (8-16); BLOOD UREA NITROGEN 15 MG/DL (7-18); CALCIUM LEVEL 8.6 MG/DL (8.5-10.1); CARBON DIOXIDE LEVEL 28 MEQ/L (21-32); CHLORIDE LEVEL 104 MEQ/L (98-107); CREATININE FOR GFR 0.85 MG/DL (0.70-1.30); GLOMERULAR FILTRATION RATE > 60.0 (>56); GLUCOSE, FASTING 107 MG/DL (70-105); POTASSIUM SERUM 4.4 MEQ/L (3.5-5.1); SODIUM LEVEL 142 MEQ/L (136-145)
[2017-05-11] MEDS: THIAMINE 100 MG TAB PO SCH (09:00)
[2017-05-11] MEDS: FOLIC ACID 1 MG TAB PO SCH (09:00)
[2017-05-11] MEDS: predniSONE 20 MG TAB PO SCH (09:00)
[2017-05-11 10:00] VITALS: BP 158/90
[2017-05-11] MEDS ORDERED: OXAZ10CA3 PO (11:10)
[2017-05-11] MEDS ORDERED: FOLI1TAB4 PO (11:10)
[2017-05-11] MEDS ORDERED: ALBU17IN INH (11:10)
[2017-05-11] MEDS ORDERED: PRED20TA PO (11:10)
[2017-05-11] MEDS ORDERED: THIA100TA PO (11:10)
[2017-05-11] MEDS ORDERED: AUGM875T28 PO (11:10)
--- NOTE | 2017-05-11 18:06 | DSES ---
DATE OF ADMISSION: 05/08/2017 DATE OF DISCHARGE: 05/11/2017 SPECIALISTS INVOLVED IN CARE: None. COMPLICATIONS DURING STAY: None. PROCEDURES PERFORMED DURING STAY: None. DISCHARGE DIAGNOSES: 1. Acute intoxication with alcohol, cocaine, and marijuana. 2. Polysubstance abuse. 3. Abnormal EKGs with T-wave inversions in inferior leads. 4. Resolved acute kidney injury. 5. Rhabdomyolysis. 6. Suspected aspiration pneumonia. 7. History of seizures. 8. Hypertension. 9. Depression and anxiety. 10. Hepatitis C. SUMMARY OF PRESENTATION: This is a 56-year-old who presented with intoxication metabolic encephalopathy. He had abnormal EKG. He was supported through his intoxication, treated for rhabdomyolysis with intravenous (IV) fluids. He would benefit from an outpatient stress test. He had some element of acute kidney injury at the time of presentation. He did well during the remainder of his stay and was treated for potential alcohol withdrawal. Was requested outpatient rehabilitation services during his stay. Unfortunately, most likely vomited and aspirated during the course of his intoxication and was being treated for possible aspiration pneumonia at the time of discharge. He had been afebrile for over 24 hours at the time of discharge and was without white count, tolerating diet. On the day of discharge he is breathing easily on room air. Breathing is symmetrical. There are some upper airway sounds. No wheezes, rales, or rhonchi. Inspiratory to expiratory (I-to-E) ratio is 1:3. Heart is in a regular rate and rhythm. Abdomen soft, doughy, nontender. White cell count 8.3, hemoglobin 13.2, platelets of 224. BUN 15, creatinine 0.85. Creatinine had been as high as 2.35 during the course of his stay. DISCHARGE INSTRUCTIONS: Followup with Sherine Olguin May 17 at 1445. Diet and activity as tolerated. MEDICATIONS AT THE TIME OF DISCHARGE: - albuterol two puffs inhaled every 4 hours as needed for shortness of breath - Augmentin 875 mg by mouth twice daily - folic acid 1 mg by mouth daily - oxazepam tapering dose, one tablet twice daily and tapering to one tablet daily over the course of 4 days - continue prednisone 40 mg by mouth daily for 4 days - thiamine 100 mg by mouth daily - Norvasc 10 mg by mouth daily - citalopram 20 mg by mouth daily - continue Zepatier one tablet by mouth daily - multivitamin one tablet daily - quetiapine 200 mg by mouth daily at bedtime Patient may benefit from outpatient stress test based on his EKG changes associated with use of cocaine. MTDD
== END 2017-05-11 11:58 | disposition home or self-care (01) | DRG 896 ==
LOC: M ED 00:57 → M ED INP 06:15 → M PCU 11:41 → M MSPAV 05-09 13:51
PROVIDERS: ADMIT Internal Medicine; ATTEND Internal Medicine
DX: F14.129 Cocaine abuse with intoxication, unspecified (principal); G93.40 Encephalopathy, unspecified; J69.0 Pneumonitis due to inhalation of food and vomit; N17.9 Acute kidney failure, unspecified; M62.82 Rhabdomyolysis; F10.129 Alcohol abuse with intoxication, unspecified; R94.31 Abnormal electrocardiogram [ECG] [EKG]; I10 Essential (primary) hypertension; F32.9 Major depressive disorder, single episode, unspecified; F41.9 Anxiety disorder, unspecified; B19.20 Unspecified viral hepatitis C without hepatic coma; Z79.899 Other long term (current) drug therapy; Z86.718 Personal history of other venous thrombosis and embolism; Z88.8 Allergy status to other drugs, medicaments and biological substances

== ENCOUNTER 2017-06-06 21:04 | Inpatient (IN) | payer MEDICARE, MEDICAID ==
[~2017-06-06] VITALS: Ht 185.4 cm; Wt 69.0 kg
[~2017-06-06 21:04] MED LIST changes: +ALBU17IN INH; +AUGM875T28 PO; +FOLI1TAB4 PO; +OXAZ10CA3 PO; +PATIENT COMMENT; +PRED20TA PO; +SERO200T PO; +THIA100TA PO; +VITMTA PO; +ZEPA1TAB PO
[2017-06-06 21:58] LABS: MEAN CORPUSCULAR HGB CONC 31.9 g/dl (32.0-36.5); MEAN CORPUSCULAR VOLUME 78.4 fl (80.0-96.0); RED CELL DISTRIBUTION WIDTH 14.8 % (11.5-14.5); WHITE BLOOD COUNT 9.5 10^3/uL (4.0-10.0)
[2017-06-06 22:23] LABS: METHADONE URINE NEGATIVE (NEGATIVE)
[2017-06-06 22:26] LABS: ALBUMIN 3.9 GM/DL (3.2-5.2); ALBUMIN/GLOBULIN RATIO 0.95 (1.00-1.93); ALKALINE PHOSPHATASE 99 U/L (45-117); ALT/SGPT 22 U/L (12-78); ANION GAP 5 MEQ/L (8-16); AST/SGOT 20 U/L (15-37); BILIRUBIN,DIRECT 0.3 MG/DL (0.0-0.2); BILIRUBIN,TOTAL 0.7 MG/DL (0.2-1.0); BLOOD UREA NITROGEN 11 MG/DL (7-18); CALCIUM LEVEL 9.1 MG/DL (8.5-10.1); CARBON DIOXIDE LEVEL 29 MEQ/L (21-32); CHLORIDE LEVEL 101 MEQ/L (98-107); CREATININE FOR GFR 1.02 MG/DL (0.70-1.30); GLOMERULAR FILTRATION RATE > 60.0 (>56); GLUCOSE, FASTING 124 MG/DL (70-105); SODIUM LEVEL 135 MEQ/L (136-145)
[2017-06-06] MEDS ORDERED: ACETAMINOPHEN TAB 650MG DOSE (2X325MG) PO PRN (23:30)
[2017-06-06] MEDS ORDERED: MOM 30ML SUSPENSION UDC PO PRN (23:30)
[2017-06-06] MEDS ORDERED: MAALOX 30 ML SUSP *UDC PO PRN (23:30)
[2017-06-06] MEDS ORDERED: traZODone 50 MG TAB PO PRN (23:30)
[2017-06-06] MEDS ORDERED: AMLO5TAB2 PO (23:35)
[2017-06-06] MEDS ORDERED: ALBU17IN INH (23:35)
[2017-06-06] MEDS ORDERED: FOLI1TAB4 PO (23:37)
[2017-06-06] MEDS ORDERED: SERO50TA PO (23:38)
[2017-06-06] MEDS ORDERED: THIA100T6 PO (23:39)
[2017-06-06] MEDS ORDERED: SERO200T PO (23:44)
[2017-06-06] MEDS ORDERED: AMLO10TA2 PO (23:44)
[2017-06-07 01:07] VITALS: BP 140/94
[2017-06-07 06:33] VITALS: BP 150/80
[2017-06-07] MEDS ORDERED: ALBUTEROL 90 MCG/ACT 8GM HFA INHALER INH PRN (08:45)
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
--- NOTE | 2017-06-07 11:07 | REP ---
Duplex extremity venous ultrasound: Left lower extremity. History: Question DVT left leg. Findings: The deep veins are anechoic and fully compressible from the groin to the popliteal fossa in the left lower extremity. Color flow imaging is homogeneous. Spectral Doppler interrogation demonstrates intact respiratory variation in flow and normal manual augmentation of flow. There is no evidence of deep vein thrombosis. There is a 4.4 x 4.3 x 2.5 cm Jansen's cyst in the left posterior popliteal soft tissues. Impression: Negative left lower extremity duplex venous ultrasound. No evidence of deep vein thrombosis. Jansen's cyst noted incidentally. Signed by Gabriel Perez MD 06/07/2017 10:58 A
[2017-06-07] MEDS: amLODIPine 10 MG TAB PO SCH (11:19)
[2017-06-07] MEDS: CitaloPRAM (CeleXA) 10 MG TABLET PO SCH (12:15)
[2017-06-07] MEDS: risperiDONE 1 MG TAB PO SCH ×2 (12:16→21:29)
--- NOTE | 2017-06-07 15:49 | ECGEPIP ---
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
[2017-06-07] MEDS: QUEtiapine FUMARATE 100 MG TAB PO SCH ×2 (16:42→21:29)
[2017-06-07 18:52] VITALS: BP 140/79
[2017-06-08 07:12] VITALS: BP 142/76
[2017-06-08 07:45] LABS: ALBUMIN 3.5 GM/DL (3.2-5.2); ALBUMIN/GLOBULIN RATIO 0.81 (1.00-1.93); ALKALINE PHOSPHATASE 84 U/L (45-117); ALT/SGPT 17 U/L (12-78); ANION GAP 4 MEQ/L (8-16); AST/SGOT 17 U/L (15-37); BILIRUBIN,TOTAL 0.4 MG/DL (0.2-1.0); BLOOD UREA NITROGEN 10 MG/DL (7-18); CARBON DIOXIDE LEVEL 31 MEQ/L (21-32); CHLORIDE LEVEL 107 MEQ/L (98-107); GLOMERULAR FILTRATION RATE > 60.0 (>56); GLUCOSE, FASTING 132 MG/DL (70-105); POTASSIUM SERUM 4.1 MEQ/L (3.5-5.1); SODIUM LEVEL 142 MEQ/L (136-145); TOTAL PROTEIN 7.8 GM/DL (6.4-8.2)
[2017-06-08] MEDS: CitaloPRAM (CeleXA) 10 MG TABLET PO SCH (08:23)
[2017-06-08] MEDS: amLODIPine 10 MG TAB PO SCH (08:23)
[2017-06-08] MEDS: QUEtiapine FUMARATE 100 MG TAB PO SCH ×3 (08:23→22:14)
[2017-06-08] MEDS: risperiDONE 1 MG TAB PO SCH ×2 (08:23→22:14)
[2017-06-08] MEDS: ZEPATIER PO SCH ×2 (09:00→10:38)
[2017-06-08] MEDS: ANUSOL HC CREAM 30GM TOP SCH ×2 (10:38→21:00)
[2017-06-08] MEDS: ANALGESIC BALM CRM 120 GM TOP PRN (13:06)
--- NOTE | 2017-06-08 15:35 | MHIPNPDOC ---
[facility] Progress Note Progress Note DATE OF SERVICE: 06/08/17 HISTORY: 56-year-old male with history of depression, crack cocaine use disorder and recent suicidal thoughts and states he is not on a leave the hospital, unless he goes directly into a rehabilitation program. Today, 06/08/2017 the patient said that he hasn't slept well, his appetite was improving and he denies suicidal, homicidal ideations as well as auditory and visual hallucinations. VITAL SIGNS: See below. NEW TEST RESULTS: None. CURRENT MEDICATIONS: See below. MENTAL STATUS EXAMINATION: General appearance: Patient is a 56-year old male, who is mildly cooperative, good eye contact, dressed in [facility], seems to be in a umaña to leave the office, seems to be concerned only about being transferred to a rehabilitation program. Speech: Rapid, normal in tone and volume, sometimes difficult to understand because he speaks very fast Thought processes: coherent. Thought content: Anxious about getting into Rehab. Abstract reasoning and computation: Not assessed at this time Description of associations: Good. Description of abnormal or psychotic thoughts: paranoid and persecutory thoughts , hypervigilant. He denies auditory and visual hallucinations, denies suicidal thoughts and homicidal thoughts. Judgment: Poor. Insight: Poor. Orientation: Oriented to place and person, not to time and date. Recent and remote memory: Good Attention span and concentration: Fair. Fund of knowledge: Not assessed at this time. Mood: "I feel a little better." Affect: Anxious, worried DIAGNOSES: 1. 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 Crack cocaine use disorder. 3. Alcohol use disorder. ASSESSMENT: Patient is concerned about going to rehabilitation as soon as he leaves the hospital. He seems very anxious, hypervigilant and slightly paranoid. MANAGEMENT PLAN: Patient will be continued on the same medications, we will transfer him to a rehabilitation program if possible. TIME SPENT: 20 minutes. Vital Signs Vital Signs Date Time Temp Pulse Resp B/P (MAP) Pulse Ox O2 Delivery O2 Flow Rate FiO2 06/08/17 08:23 72 142/76 06/08/17 07:12 98.9 18 06/07/17 01:07 95 Room Air Laboratory Data 24H Labs Laboratory Tests 2 06/08/17 07:09: Anion Gap 4L, Glomerular Filtration Rate > 60.0, Blood Urea Nitrogen 10, Creatinine 1.10, Sodium Level 142#, Potassium Level 4.1, Chloride Level 107, Carbon Dioxide Level 31, Calcium Level 9.0, Aspartate Amino Transf (AST/SGOT) 17 , Alanine Aminotransferase (ALT/SGPT) 17, Alkaline Phosphatase 84, Total Bilirubin 0.4, Total Protein 7.8, Albumin 3.5, Albumin/Globulin Ratio 0.81L, 25- Hydroxy Vitamin D Total 6.8L CBC/BMP Laboratory Tests 06/08/17 07:09 Calcium Level 9.0, Aspartate Amino Transf (AST/SGOT) 17, Alanine Aminotransferase (ALT/SGPT) 17, Alkaline Phosphatase 84, Total Bilirubin 0.4, Total Protein 7.8, Albumin 3.5 Current Medications Current Medications Acetaminophen (Tylenol Tab) 650 mg Q6HP PRN PO HEADACHE or DISCOMFORT Last administered on 06/07/17 07:44; Start 06/06/17 at 23:30; Stop 07/06/17 at 23 :29 Al Hydrox/Mg Hydrox/Simethicone (Mylanta) 30 ml Q4HP PRN PO HEARTBURN/ INDIGESTION; Start 06/06/17 at 23:30; Stop 07/06/17 at 23:29 Albuterol Sulfate (Proventil, Ventolin Hfa) 2 puff Q4H PRN INH SOB/WHEEZING; Start 06/07/17 at 08:45; Stop 07/07/17 at 08:44 Amlodipine Besylate (Norvasc) 10 mg DAILY PO Last administered on 06/08/17 08 :23; Start 06/07/17 at 09:00; Stop 07/07/17 at 08:59 Citalopram Hydrobromide (CeleXA) 10 mg DAILY PO Last administered on 08:23; Start 06/07/17 at 09:00; Stop 07/07/17 at 08:59 Home Med (Med Rec Complete!) ASDIRECTED XX ; Start 06/06/17 at 23:45; Stop at 23:45; Status DC Hydrocortisone (Proctosol Hc) 1 dose BID TOP Last administered on 06/08/17 10 :38; Start 06/08/17 at 09:00; Stop 06/14/17 at 21:01 Magnesium Hydroxide (Milk Of Magnesia) 30 ml DAILYPRN PRN PO CONSTIPATION; Start 06/06/17 at 23:30; Stop 07/06/17 at 23:29 Menthol/Methyl Salicylate (Bengay Cream) For back pain. TID PRN TOP PAIN Last administered on 06/08/17 13:06; Start 06/08/17 at 10:15; Stop 07/08/17 at 10 :14 Patient Own Medication (Patient'S Own Med) 1 ea DAILY PO Last administered on 06/08/17 10:38; Start 06/08/17 at 09:00; Stop 07/08/17 at 08:59 Quetiapine Fumarate (SEROquel) 100 mg TID PO Last administered on 06/08/17 08 :23; Start 06/07/17 at 16:00; Stop 07/07/17 at 15:59 Risperidone (RisperDAL) 1 mg BID PO Last administered on 06/08/17 08:23; Start 06/07/17 at 09:00; Stop 07/07/17 at 08:59 Trazodone HCl (Desyrel) 50 mg QHSP PRN PO INSOMNIA; Start 06/06/17 at 23:30; Stop 07/06/17 at 23:29 Allergies Coded Allergies: Haloperidol (Verified Allergy, Severe, SWELLING, 04/18/17) Lisinopril (Verified Allergy, Severe, anaphylaxis, 04/18/17) KEVIN ABEL MD Jun 08, 2017 15:35
[2017-06-08 18:00] VITALS: BP 130/77
[2017-06-09 07:07] VITALS: BP 158/93
[2017-06-09] MEDS: risperiDONE 1 MG TAB PO SCH ×2 (08:43→20:47)
[2017-06-09] MEDS: amLODIPine 10 MG TAB PO SCH (08:43)
[2017-06-09] MEDS: QUEtiapine FUMARATE 100 MG TAB PO SCH ×3 (08:43→20:47)
[2017-06-09] MEDS: ZEPATIER PO SCH (08:43)
[2017-06-09] MEDS: CitaloPRAM (CeleXA) 10 MG TABLET PO SCH (08:43)
[2017-06-09] MEDS: ANUSOL HC CREAM 30GM TOP SCH ×2 (08:45→20:48)
[2017-06-09 18:00] VITALS: BP 139/89
--- NOTE | 2017-06-09 22:48 | MHIPN ---
DATE: 06/09/2017 SUBJECTIVE: The patient today states "I'm doing good." He has no complaints. MENTAL STATUS EXAMINATION: He is alert and oriented times three. Eye contact is good. He is verbally spontaneous. There is no formal thought disorder noted. He says his mood is good and affect is restricted but appropriate to his mood. He is not psychotic. Denies suicidal or homicidal ideations. Concentration is fair. Memory intact. Insight is fair. DIAGNOSES: 1. Mood disorder due to abuse of cocaine. 2. Cocaine use disorder. 3. Alcohol use disorder. TREATMENT PLAN: At this point, we will continue to monitor the patient for continued stabilization of his mood and continued denial of suicidal ideation. LIZ
[2017-06-10 07:14] VITALS: BP 144/98
[2017-06-10] MEDS: CitaloPRAM (CeleXA) 10 MG TABLET PO SCH (08:01)
[2017-06-10] MEDS: ZEPATIER PO SCH (08:01)
[2017-06-10] MEDS: amLODIPine 10 MG TAB PO SCH (08:01)
[2017-06-10] MEDS: risperiDONE 1 MG TAB PO SCH ×2 (08:01→21:46)
[2017-06-10] MEDS: QUEtiapine FUMARATE 100 MG TAB PO SCH ×3 (08:01→21:47)
[2017-06-10] MEDS: ANUSOL HC CREAM 30GM TOP SCH ×2 (08:04→21:00)
[2017-06-10] MEDS ORDERED: IPRATROPIUM 0.5MG/ALBUTEROL 2.5MG INH SOL UD 3ML (DUONEB)(J7620) NEB PRN (09:45)
[2017-06-10 18:00] VITALS: BP 140/82
--- NOTE | 2017-06-10 19:23 | MHIPN ---
DATE: 06/10/2017 The patient today states that he is doing fine. I am not eliciting any mood sypmtoms. He has no complaints. MENTAL STATUS EXAMINATION: He is alert and oriented times three. He is pleasant and cooperative, verbally spontaneous. There is no formal thought disorder noted. He says his mood is fine. His affect is constricted, but appropriate to his mood. He is not psychotic. He is denying suicidal or homicidal ideation. Concentration is fair. Memory intact. Insight and judgment fair. DIAGNOSES: Mood disorder secondary to cocaine abuse. Cocaine use disorder. Alcohol use disorder. TREATMENT PLAN: At this point, we will continue to monitor the patient for continued stabilization of his mood and resolution of suicidal ideations. The patient continues to want to be transferred to an inpatient rehabilitation program.
[2017-06-11 06:43] VITALS: BP 143/106
[2017-06-11] MEDS: ANUSOL HC CREAM 30GM TOP SCH ×2 (08:22→21:15)
[2017-06-11] MEDS: risperiDONE 1 MG TAB PO SCH ×2 (08:24→21:15)
[2017-06-11] MEDS: CitaloPRAM (CeleXA) 10 MG TABLET PO SCH (08:24)
[2017-06-11] MEDS: QUEtiapine FUMARATE 100 MG TAB PO SCH ×3 (08:24→21:15)
[2017-06-11] MEDS: amLODIPine 10 MG TAB PO SCH (08:25)
[2017-06-11] MEDS: ZEPATIER PO SCH (08:26)
[2017-06-11] MEDS: ANALGESIC BALM CRM 120 GM TOP PRN (08:27)
[2017-06-11] MEDS ORDERED: VITAMIN D 50,000 UNITS CAPSULE (ERGOCALCIFEROL 1.25MG) PO SCH (09:00)
[2017-06-11 18:00] VITALS: BP 127/65
--- NOTE | 2017-06-11 21:30 | MHIPNPDOC ---
[facility] Progress Note Progress Note DATE OF SERVICE: 06/11/17 HISTORY: 56-year-old male with history of depression, crack cocaine use disorder and recent suicidal thoughts and states he is not on a leave the hospital, unless he goes directly into a rehabilitation program. Today, 06/11/2017 the patient said he felt a little bit of lung congestion but he felt relieved when he used his inhaler. He reported he spoke with Senior Financial Reporting Analyst, Yoli Baker who gave him some other documents to fill out, that's he' s ready to leave [place] and start a new life somewhere else, probably [place]. He denied suicidal thoughts or homicidal thoughts, he thinks his anxiety is getting better but he is still having problems with the cocaine withdrawals and depression. VITAL SIGNS: See below. NEW TEST RESULTS: None. CURRENT MEDICATIONS: See below. MENTAL STATUS EXAMINATION: General appearance: Patient is a 56-year old male, who is cooperative, good eye contact, [facility], more calm, fair hygiene and grooming Speech: Less rapid, normal in tone and volume. Thought processes: Intact Thought content: Perseveres about leaving [place] and starting a new and different life away from drugs, somewhere else. Abstract reasoning and computation: Not assessed at this time Description of associations: Good. Description of abnormal or psychotic thoughts: Paranoid thoughts are present but to a lesser extent. He denies auditory and visual hallucinations, denies suicidal thoughts and homicidal thoughts. Judgment: Limited. Insight: Limited Orientation: Oriented x 3 Recent and remote memory: Good Attention span and concentration: Fair. Fund of knowledge: Not assessed at this time. Mood: "I'm feeling better" Affect: Less anxious, less depressed DIAGNOSES: 1. 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 Crack cocaine use disorder. 3. Alcohol use disorder. ASSESSMENT: Patient is less paranoid and less anxious. His speech is less rapid and his judgement seems to be slowly improving. He is still impulsive and has a long way to go, but he is making efforts attending groups, trying to gain some insight. MANAGEMENT PLAN: Patient will be continued on the same medications, we will transfer him to a rehabilitation program if possible. TIME SPENT: 20 minutes. Vital Signs Vital Signs Date Time Temp Pulse Resp B/P (MAP) Pulse Ox O2 Delivery O2 Flow Rate FiO2 06/11/17 18:00 98.6 75 16 127/65 (85) 06/11/17 07:54 Room Air 06/07/17 01:07 95 Current Medications Current Medications Acetaminophen (Tylenol Tab) 650 mg Q6HP PRN PO HEADACHE or DISCOMFORT Last administered on 06/07/17 07:44; Start 06/06/17 at 23:30; Stop 07/06/17 at 23 :29 Al Hydrox/Mg Hydrox/Simethicone (Mylanta) 30 ml Q4HP PRN PO HEARTBURN/ INDIGESTION; Start 06/06/17 at 23:30; Stop 07/06/17 at 23:29 Albuterol Sulfate (Proventil, Ventolin Hfa) 2 puff Q4H PRN INH SOB/WHEEZING; Start 06/07/17 at 08:45; Stop 07/07/17 at 08:44 Albuterol/ Ipratropium (Duoneb (Ipr 0.5mg/Alb 2.5mg)) 3 ml Q6HP PRN NEB SOB/ WHEEZING Last administered on 06/10/17 10:10; Start 06/10/17 at 09:45; Stop 07/10/17 at 09:44 Amlodipine Besylate (Norvasc) 10 mg DAILY PO Last administered on 06/11/17 08 :25; Start 06/07/17 at 09:00; Stop 07/07/17 at 08:59 Citalopram Hydrobromide (CeleXA) 10 mg DAILY PO Last administered on 08:24; Start 06/07/17 at 09:00; Stop 07/07/17 at 08:59 Home Med (Med Rec Complete!) ASDIRECTED XX ; Start 06/06/17 at 23:45; Stop at 23:45; Status DC Hydrocortisone (Proctosol Hc) 1 dose BID TOP Last administered on 06/11/17 21 :15; Start 06/08/17 at 09:00; Stop 06/14/17 at 21:01 Magnesium Hydroxide (Milk Of Magnesia) 30 ml DAILYPRN PRN PO CONSTIPATION; Start 06/06/17 at 23:30; Stop 07/06/17 at 23:29 Menthol/Methyl Salicylate (Bengay Cream) For back pain. TID PRN TOP PAIN Last administered on 06/11/17 08:27; Start 06/08/17 at 10:15; Stop 07/08/17 at 10 :14 Patient Own Medication (Patient'S Own Med) 1 ea DAILY PO Last administered on 06/11/17 08:26; Start 06/08/17 at 09:00; Stop 07/08/17 at 08:59 Quetiapine Fumarate (SEROquel) 100 mg TID PO Last administered on 06/11/17 21 :15; Start 06/07/17 at 16:00; Stop 07/07/17 at 15:59 Risperidone (RisperDAL) 1 mg BID PO Last administered on 06/11/17 21:15; Start 06/07/17 at 09:00; Stop 07/07/17 at 08:59 Trazodone HCl (Desyrel) 50 mg QHSP PRN PO INSOMNIA; Start 06/06/17 at 23:30; Stop 07/06/17 at 23:29 Vitamin D (Drisdol) 50,000 units Mo@09 PO Last administered on 06/11/17 08:24 ; Start 06/11/17 at 09:00; Stop 07/11/17 at 08:59 Allergies Coded Allergies: Haloperidol (Verified Allergy, Severe, SWELLING, 04/18/17) Lisinopril (Verified Allergy, Severe, anaphylaxis, 04/18/17) KEVIN ABEL MD Jun 11, 2017 21:30
[2017-06-12 06:45] VITALS: BP 137/79
[2017-06-12] MEDS: QUEtiapine FUMARATE 100 MG TAB PO SCH ×3 (08:32→20:50)
[2017-06-12] MEDS: ANUSOL HC CREAM 30GM TOP SCH ×2 (08:32→20:51)
[2017-06-12] MEDS: CitaloPRAM (CeleXA) 10 MG TABLET PO SCH (08:32)
[2017-06-12] MEDS: amLODIPine 10 MG TAB PO SCH (08:32)
[2017-06-12] MEDS: ZEPATIER PO SCH (08:32)
[2017-06-12] MEDS: risperiDONE 1 MG TAB PO SCH ×2 (08:32→20:50)
--- NOTE | 2017-06-12 15:49 | MHIPNPDOC ---
[facility] Progress Note Progress Note DATE OF SERVICE: 06/12/17 HISTORY: 56-year-old male with history of depression, crack cocaine use disorder and recent suicidal thoughts and states he is not on a leave the hospital, unless he goes directly into a rehabilitation program. On 06/12/17 Virgil was laying in bed when I went to see him and he said he had aches and pains this time, mostly from withdrawals. I asked him if this was not unusual for people who used crack, because, I explaines, I thought it happenned with opioids, not with crack, but he said it happens, although not all the time. VITAL SIGNS: See below. NEW TEST RESULTS: None. CURRENT MEDICATIONS: See below. MENTAL STATUS EXAMINATION: General appearance: Patient is a 56-year old male, who has good eye contact, cooperative, calmer, fair hygiene and grooming Speech: Normal in tone, rate and volume Thought processes: Intact Thought content: motivated to go to rehab Abstract reasoning and computation: Not assessed at this time Description of associations: Good. Description of abnormal or psychotic thoughts: Paranoid thoughts are present but to a lesser extent. He denies auditory and visual hallucinations, denies suicidal thoughts and homicidal thoughts. Judgment: Fair Insight: Fair Orientation: Oriented x 3 Recent and remote memory: Good Attention span and concentration: Fair. Fund of knowledge: Not assessed at this time. Mood: "I'm less anxious but I have aches and pains" Affect: Less anxious, less depressed DIAGNOSES: 1. 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 Crack cocaine use disorder. 3. Alcohol use disorder. ASSESSMENT: Patient is slowly improving, still going through withdrawals, but improving. Still motivated to start rehab MANAGEMENT PLAN: Patient will be continued on the same medications, we will transfer him to a rehabilitation program if possible. TIME SPENT: 30 minutes. Vital Signs Vital Signs Date Time Temp Pulse Resp B/P (MAP) Pulse Ox O2 Delivery O2 Flow Rate FiO2 06/12/17 08:32 108 137/79 06/12/17 06:45 97.7 18 06/11/17 07:54 Room Air 06/07/17 01:07 95 Current Medications Current Medications Acetaminophen (Tylenol Tab) 650 mg Q6HP PRN PO HEADACHE or DISCOMFORT Last administered on 06/07/17t 07:44; Start 06/06/17 at 23:30; Stop 07/06/17 at 23 :29 Al Hydrox/Mg Hydrox/Simethicone (Mylanta) 30 ml Q4HP PRN PO HEARTBURN/ INDIGESTION; Start 06/06/17 at 23:30; Stop 07/06/17 at 23:29 Albuterol Sulfate (Proventil, Ventolin Hfa) 2 puff Q4H PRN INH SOB/WHEEZING; Start 06/07/17 at 08:45; Stop 07/07/17 at 08:44 Albuterol/ Ipratropium (Duoneb (Ipr 0.5mg/Alb 2.5mg)) 3 ml Q6HP PRN NEB SOB/ WHEEZING Last administered on 06/10/17 10:10; Start 06/10/17 at 09:45; Stop 07/10/17 at 09:44 Amlodipine Besylate (Norvasc) 10 mg DAILY PO Last administered on 06/12/17 08 :32; Start 06/07/17 at 09:00; Stop 07/07/17 at 08:59 Citalopram Hydrobromide (CeleXA) 10 mg DAILY PO Last administered on 08:32; Start 06/07/17 at 09:00; Stop 07/07/17 at 08:59 Home Med (Med Rec Complete!) ASDIRECTED XX ; Start 06/06/17 at 23:45; Stop at 23:45; Status DC Hydrocortisone (Proctosol Hc) 1 dose BID TOP Last administered on 06/12/17 08 :32; Start 06/08/17 at 09:00; Stop 06/14/17 at 21:01 Magnesium Hydroxide (Milk Of Magnesia) 30 ml DAILYPRN PRN PO CONSTIPATION; Start 06/06/17 at 23:30; Stop 07/06/17 at 23:29 Menthol/Methyl Salicylate (Bengay Cream) For back pain. TID PRN TOP PAIN Last administered on 06/11/17 08:27; Start 06/08/17 at 10:15; Stop 07/08/17 at 10 :14 Patient Own Medication (Patient'S Own Med) 1 ea DAILY PO Last administered on 06/12/17 08:32; Start 06/08/17 at 09:00; Stop 07/08/17 at 08:59 Quetiapine Fumarate (SEROquel) 100 mg TID PO Last administered on 06/12/17 08 :32; Start 06/07/17 at 16:00; Stop 07/07/17 at 15:59 Risperidone (RisperDAL) 1 mg BID PO Last administered on 06/12/17 08:32; Start 06/07/17 at 09:00; Stop 07/07/17 at 08:59 Trazodone HCl (Desyrel) 50 mg QHSP PRN PO INSOMNIA; Start 06/06/17 at 23:30; Stop 07/06/17 at 23:29 Vitamin D (Drisdol) 50,000 units Mo@09 PO Last administered on 06/11/17 08:24 ; Start 06/11/17 at 09:00; Stop 07/11/17 at 08:59 Allergies Coded Allergies: Haloperidol (Verified Allergy, Severe, SWELLING, 04/18/17) Lisinopril (Verified Allergy, Severe, anaphylaxis, 04/18/17) KEVIN ABEL MD Jun 12, 2017 15:49
[2017-06-12 18:35] VITALS: BP 136/76
[2017-06-13 06:28] VITALS: BP 151/82
[2017-06-13 08:33] VITALS: BP 144/78
[2017-06-13] MEDS: CitaloPRAM (CeleXA) 10 MG TABLET PO SCH (08:33)
[2017-06-13] MEDS: QUEtiapine FUMARATE 100 MG TAB PO SCH (08:33)
[2017-06-13] MEDS: risperiDONE 1 MG TAB PO SCH (08:33)
[2017-06-13] MEDS: amLODIPine 10 MG TAB PO SCH (08:33)
[2017-06-13] MEDS: ZEPATIER PO SCH (08:34)
[2017-06-13] MEDS: ANUSOL HC CREAM 30GM TOP SCH (08:34)
[2017-06-13] MEDS ORDERED: RISP1TAB42 PO (10:08)
[2017-06-13] MEDS ORDERED: QUET1TAB8 PO (10:08)
[2017-06-13] MEDS ORDERED: MUSC1CRE TOP (10:08)
[2017-06-13] MEDS ORDERED: PROC1CRE5 TOP (10:08)
[2017-06-13] MEDS ORDERED: TRAZO50TA PO (10:08)
[2017-06-13] MEDS ORDERED: CELE10TA PO (10:08)
--- NOTE | 2017-06-13 10:20 | MHDSPDOC ---
[facility] Discharge Summary Discharge Summary DATE OF ADMISSION: Jun 06, 2017 at 23:21 DATE OF DISCHARGE: DISCHARGE DIAGNOSES: 1. . 2. . REASON FOR ADMISSION: CHIEF COMPLAINT: Patient came to the ED because he felt suicidal and felt his depression has increased lately due to cocaine (crack) abuse. HISTORY OF THE PRESENT ILLNESS: Patient is a 56-year-old male, who says he has been using "too much crack cocaine for the past 5-6 years". He says he has stopped eating, has lost 34 lbs., has had visual and auditory hallucinations, although not recently, feels too depressed and he is aware this is because he is using too much cocaine. 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 His brother was into drugs and he started using, he became addicted and he started selling too. He says his life is out of control and he knows his BP is high, he feels weak because he does not have any appetite and he knows he needs to go to Rehab in order to straighten up his life. CONSULTANTS INVOLVED: None TREATMENT AND PROGRESS ON THE UNIT : patient had a good response to medications , Seroquel and Risperdal. At the time of admission he had very rapid speech, he had inappropriate affect, was loud, used to laugh at serious matters, reported having visual distortions as a consequence of drug use and having paranoid, persecutory delusions. all of these symptoms started decreasing when as the days went by. he was worried about his hepatitis C medication and he has continued taking it. His LFT's were not that abnormal, his indirect bilirubin was 0.3 but that could be secondary to alcohol abuse and hepatitis, although he was not positive for alcohol on admission. Patient has said on multiple occasions he wants to go to Rehab and never come back to [place] because he knows he would use drugs again if he remains in here. A rehab program has accepted him in [place] HOSPITAL COURSE: DISCHARGE ASSESSMENT: MENTAL STATUS EXAMINATION ON DISCHARGE: Patient is a 56-year old male, who is alert, dressed in hospital clothes, cooperative, happier. Speech is coherent Language skills are Fair. Thought processes including: Intact. Thought content: About his rehab program. Abstract reasoning, and computation: Not assessed at this time Description of associations: Good Description of abnormal or psychotic thoughts: Denies A/V hallucinations, denies thought delusions, denies SI/HI Judgment: Improved Insight: Improved. Orientation to Oriented x 3 Recent and remote memory: Intact Attention span and concentration: Fair Language: Normal. Fund of knowledge: Fair. Mood: Happy. Affect: congruent to mood, full range, appropriate. MEDICATIONS ON DISCHARGE: - for . - for . - for . PLAN/FOLLOWUP ARRANGEMENTS: . The amount of time spent in the coordination of care for this patient was approximately minutes. Vital Signs/I&Os Vital Signs Date Time Temp Pulse Resp B/P (MAP) Pulse Ox O2 Delivery O2 Flow Rate FiO2 06/13/17 08:33 88 144/78 06/13/17 06:28 98.4 20 06/11/17 07:54 Room Air 06/07/17 01:07 95 Medications Scheduled (Proctozone-Hc) 2.5 % Cre, 1 DOSE TOP BID for HEMORRHOIDS, #1 Amlodipine Besylate (Amlodipine Besylate) 10 Mg Tab, 10 MG PO DAILY, (Reported) Citalopram Hydrobromide (Celexa) 10 Mg Tab, 10 MG PO DAILY for DEPRESSION, #10 Elbasvir/Grazoprevir (Zepatier 50-100 mg) 1 Tab Tab, 1 TAB PO DAILY, (Reported) Folic Acid (Folic Acid) 1 Mg Tab, 1 MG PO DAILY, (Reported) Multivitamins *[facility]* (Thera M Plus *[facility]*) 1 Tab Tab, 1 TAB PO DAILY, (Reported) Quetiapine Fumerate (Quetiapine Fumarate) 100 Mg Tab, 100 MG PO TID for MOOD, # 21 Risperidone (Risperdal) 1 Mg Tab, 1 MG PO BID for PSYCHOSIS, #14 Thiamine HCl (Thiamine HCl) 100 Mg Tab, 100 MG PO DAILY, (Reported) Scheduled PRN (Muscle Rub 10-15 %) 1 Cre Cre, 1 DOSE TOP TID PRN for PAIN, #1 Albuterol Sulfate (Ventolin Hfa) 200 Puff/8 Gm Aers, 2 PUFF INH Q4H PRN for SOB/ WHEEZING, (Reported) Trazodone HCl (Trazodone HCl) 50 Mg Tab, 50 MG PO QHSP PRN for INSOMNIA, #10 Allergies Coded Allergies: Haloperidol (Verified Allergy, Severe, SWELLING, 04/18/17) Lisinopril (Verified Allergy, Severe, anaphylaxis, 04/18/17) KEVIN ABEL MD Jun 13, 2017 10:20
== END 2017-06-13 11:45 | DRG 897 ==
LOC: M ED 21:04 → M ED INP 23:21 → M PSY 06-07 00:07
PROVIDERS: ADMIT Psychiatry & Neurology Psychiatry; ATTEND Psychiatry & Neurology Psychiatry
DX: F14.94 Cocaine use, unspecified with cocaine-induced mood disorder (principal); R45.851 Suicidal ideations; E87.1 Hypo-osmolality and hyponatremia; F10.94 Alcohol use, unspecified with alcohol-induced mood disorder; B18.2 Chronic viral hepatitis C; I10 Essential (primary) hypertension; J44.9 Chronic obstructive pulmonary disease, unspecified; F17.210 Nicotine dependence, cigarettes, uncomplicated; R94.31 Abnormal electrocardiogram [ECG] [EKG]; Z79.899 Other long term (current) drug therapy; Z88.8 Allergy status to other drugs, medicaments and biological substances; Z86.718 Personal history of other venous thrombosis and embolism

== ENCOUNTER → 2017-08-30 | Outpatient (REF) | payer MEDICARE, MEDICAID ==
[2017-08-30 14:19] LABS: ALBUMIN/GLOBULIN RATIO 0.98 (1.00-1.93); ALKALINE PHOSPHATASE 73 U/L (45-117); ALT/SGPT 20 U/L (12-78); ANION GAP 3 MEQ/L (8-16); AST/SGOT 20 U/L (7-37); BILIRUBIN,TOTAL 0.4 MG/DL (0.2-1.0); BLOOD UREA NITROGEN 14 MG/DL (7-18); CALCIUM LEVEL 9.1 MG/DL (8.5-10.1); CARBON DIOXIDE LEVEL 33 MEQ/L (21-32); CHLORIDE LEVEL 104 MEQ/L (98-107); CHOLESTEROL LEVEL 161 MG/DL (<200); CHOLESTEROL RISK RATIO 2.515 (<5); CREATININE FOR GFR 1.11 MG/DL (0.70-1.30); GLOMERULAR FILTRATION RATE > 60.0 (>56); GLUCOSE, FASTING 92 MG/DL (70-105); HDL CHOLESTEROL 64 MG/DL (>40); NON-HDL-C 97 MG/DL; POTASSIUM SERUM 4.3 MEQ/L (3.5-5.1); SODIUM LEVEL 140 MEQ/L (136-145); TOTAL PROTEIN 8.1 GM/DL (6.4-8.2); TRIGLYCERIDES LEVEL 90 MG/DL (<150)
== END ==
LOC: M LAB REF 13:30
DX: I10 Essential (primary) hypertension (principal)
CPT/HCPCS: 84443

== ENCOUNTER 2017-11-02 14:43 | Emergency (ER) | payer MEDICARE, MEDICAID | END 2017-11-02 15:36 | disposition left against medical advice (07) | LOC: M ED 14:43 | DX: I10 Essential (primary) hypertension (principal); F41.9 Anxiety disorder, unspecified; Z53.21 Procedure and treatment not carried out due to patient leaving prior to being seen by health care provider ==

== ENCOUNTER → 2017-11-29 | Outpatient (REF) | payer MEDICARE, MEDICAID ==
[2017-11-29 17:54] LABS: BASO # 0.1 10^3/uL (0.0-0.2); BASO % 2.3 % (0.0-1.0); EOS # 0.4 10^3/uL (0.0-0.50); EOS % 8.2 % (0.0-3.0); HEMATOCRIT 44.5 % (42.0-52.0); HEMOGLOBIN 14.3 g/dl (13.5-17.5); LYMPH # 1.5 10^3/uL (1.5-4.5); MEAN CORPUSCULAR HEMOGLOBIN 24.2 pg (27.0-33.0); MEAN CORPUSCULAR HGB CONC 32.1 g/dl (32.0-36.5); MEAN CORPUSCULAR VOLUME 75.2 fl (80.0-96.0); MONO # 0.4 10^3/uL (0.0-0.8); NEUTROPHILS % 45.5 % (36.0-66.0); PLATELET COUNT, AUTOMATED 211 10^3/uL (150-450); RED BLOOD COUNT 5.92 10^6/uL (4.30-6.10); WHITE BLOOD COUNT 4.3 10^3/uL (4.0-10.0)
[2017-11-29 18:36] LABS: ALBUMIN 4.2 GM/DL (3.2-5.2); ALBUMIN/GLOBULIN RATIO 0.98 (1.00-1.93); ALKALINE PHOSPHATASE 84 U/L (45-117); ALT/SGPT 22 U/L (12-78); ANION GAP 7 MEQ/L (8-16); AST/SGOT 22 U/L (7-37); BILIRUBIN,TOTAL 0.5 MG/DL (0.2-1.0); BLOOD UREA NITROGEN 16 MG/DL (7-18); CALCIUM LEVEL 8.7 MG/DL (8.5-10.1); CARBON DIOXIDE LEVEL 27 MEQ/L (21-32); CHLORIDE LEVEL 104 MEQ/L (98-107); CHOLESTEROL LEVEL 183 MG/DL (<200); CHOLESTEROL RISK RATIO 2.407 (<5); CREATININE FOR GFR 1.02 MG/DL (0.70-1.30); GLOMERULAR FILTRATION RATE > 60.0 (>56); GLUCOSE, FASTING 82 MG/DL (70-100); HDL CHOLESTEROL 76 MG/DL (>40); LDL CHOLESTEROL 95.2 MG/DL (<100); NON-HDL-C 107 MG/DL; POTASSIUM SERUM 4.2 MEQ/L (3.5-5.1); SODIUM LEVEL 138 MEQ/L (136-145); TOTAL PROTEIN 8.5 GM/DL (6.4-8.2); TRIGLYCERIDES LEVEL 59 MG/DL (<150)
[2017-11-29 18:47] LABS: POS COUNT POS FLAG
== END ==
LOC: M LAB REF 17:14
DX: B17.10 Acute hepatitis C without hepatic coma (principal); I10 Essential (primary) hypertension
CPT/HCPCS: 84443

== ENCOUNTER 2018-01-14 02:38 | Inpatient (IN) | payer MEDICARE, MEDICAID ==
[2018-01-14 03:37] LABS: BASO # 0.1 10^3/uL (0.0-0.2); EOS # 0.4 10^3/uL (0.0-0.50); EOS % 5.5 % (0.0-3.0); HEMATOCRIT 38.9 % (42.0-52.0); HEMOGLOBIN 12.5 g/dl (13.5-17.5); IMMATURE GRANULOCYTE % 0.6 % (0-3.0); LYMPH # 2.9 10^3/uL (1.5-4.5); LYMPH % 39.6 % (24.0-44.0); MEAN CORPUSCULAR HEMOGLOBIN 24.7 pg (27.0-33.0); MEAN CORPUSCULAR HGB CONC 32.1 g/dl (32.0-36.5); MEAN CORPUSCULAR VOLUME 76.7 fl (80.0-96.0); MONO # 0.6 10^3/uL (0.0-0.8); MONO % 8.4 % (0.0-5.0); NEUTROPHILS # 3.3 10^3/uL (1.8-7.7); NEUTROPHILS % 44.9 % (36.0-66.0); PLATELET COUNT, AUTOMATED 243 10^3/uL (150-450); RED BLOOD COUNT 5.07 10^6/uL (4.30-6.10); RED CELL DISTRIBUTION WIDTH 15.3 % (11.5-14.5); WHITE BLOOD COUNT 7.3 10^3/uL (4.0-10.0)
[2018-01-14 04:27] LABS: ANION GAP 9 MEQ/L (8-16); BLOOD UREA NITROGEN 17 MG/DL (7-18); CALCIUM LEVEL 7.8 MG/DL (8.5-10.1); CARBON DIOXIDE LEVEL 25 MEQ/L (21-32); CHLORIDE LEVEL 103 MEQ/L (98-107); CK-MB VALUE MASS 2.6 NG/ML (<3.6); CPK CREATINE PHOSPHOKINASE 259 U/L (39-308); CREATININE FOR GFR 1.49 MG/DL (0.70-1.30); GLOMERULAR FILTRATION RATE > 60.0 (>56); GLUCOSE, FASTING 88 MG/DL (70-100); MAGNESIUM LEVEL 2.3 MG/DL (1.8-2.4); POTASSIUM SERUM 4.1 MEQ/L (3.5-5.1); SODIUM LEVEL 137 MEQ/L (136-145); TROPONIN I < 0.02 NG/ML (< 0.10)
[2018-01-14 04:29] LABS: LACTIC ACID SEPSIS PROTOCOL 2.3 MMOL/L (0.4-2.0)
[2018-01-14 04:34] LABS: THYROID STIMULATING HORMONE 0.747 uIU/ML (0.358-3.740)
[2018-01-14] MEDS ORDERED: ACETAMINOPHEN TAB 650MG DOSE (2X325MG) PO (06:00)
[2018-01-14] MEDS: NS 1,000 ML IV ×2 (06:39→16:04)
[2018-01-14 07:09] LABS: KETONE, URINE AUTO RFX NEGATIVE (NEGATIVE); LEUKOCYTE ESTERASE UR AUTO RFX NEGATIVE (NEGATIVE); MUCUS, URINE RFX SMALL (NEGATIVE); NITRITE, URINE AUTO RFX NEGATIVE (NEGATIVE); RBC, URINE AUTO RFX 2 /HPF (0-3); SPECIFIC GRAVITY UR AUTO RFX 1.004 (1.002-1.035); SQUAM EPITHELIAL CELL UR AURFX 0 /HPF (0-6); WBC, URINE AUTO RFX 1 /HPF (0-3)
[2018-01-14 07:31] LABS: AMPHETAMINES LEVEL URINE NEGATIVE (NEGATIVE); BARBITURATES URINE NEGATIVE (NEGATIVE); BENZODIAZEPINES URINE NEGATIVE (NEGATIVE); CANNABINOIDS URINE POSITIVE (NEGATIVE); COCAINE METABOLITE URINE POSITIVE (NEGATIVE); METHADONE URINE NEGATIVE (NEGATIVE); OPIATES URINE NEGATIVE (NEGATIVE); PHENCYCLIDINE URINE NEGATIVE (NEGATIVE)
[2018-01-14] MEDS: FOLIC ACID 1 MG TAB PO (08:43)
[2018-01-14] MEDS: THIAMINE 100 MG TAB PO (08:43)
[2018-01-14] MEDS: ENOXAPARIN 40 MG/0.4 ML SYRINGE (J1650) SC (08:44)
[2018-01-14] MEDS: LORazepam 1 MG TAB PO ×2 (16:03→23:05)
[2018-01-14] MEDS: amLODIPine 10 MG TAB PO (16:04)
[2018-01-14 20:40] LABS: BEDSIDE GLUCOSE 90 MG/DL (70-105)
[2018-01-15] MEDS: NS 1,000 ML IV ×2 (01:54→11:13)
[2018-01-15] MEDS ORDERED: ALBUTEROL 90 MCG/ACT 8GM HFA INHALER INH (07:30)
[2018-01-15 07:48] LABS: HEMATOCRIT 39.8 % (42.0-52.0); HEMOGLOBIN 12.9 g/dl (13.5-17.5); MEAN CORPUSCULAR HEMOGLOBIN 24.8 pg (27.0-33.0); MEAN CORPUSCULAR HGB CONC 32.4 g/dl (32.0-36.5); MEAN CORPUSCULAR VOLUME 76.4 fl (80.0-96.0); PLATELET COUNT, AUTOMATED 240 10^3/uL (150-450); RED BLOOD COUNT 5.21 10^6/uL (4.30-6.10); RED CELL DISTRIBUTION WIDTH 15.4 % (11.5-14.5); WHITE BLOOD COUNT 6.4 10^3/uL (4.0-10.0)
[2018-01-15] MEDS: amLODIPine 10 MG TAB PO (08:18)
[2018-01-15] MEDS: THIAMINE 100 MG TAB PO (08:18)
[2018-01-15] MEDS: FOLIC ACID 1 MG TAB PO (08:18)
[2018-01-15] MEDS: MULTIVITAMINS/MINERALS THERAP 1 TAB PO (08:18)
[2018-01-15] MEDS: ENOXAPARIN 40 MG/0.4 ML SYRINGE (J1650) SC (08:19)
[2018-01-15 08:26] LABS: LACTIC ACID SEPSIS PROTOCOL 0.8 MMOL/L (0.4-2.0)
[2018-01-15 08:26] LABS: ALBUMIN 3.3 GM/DL (3.2-5.2); ALBUMIN/GLOBULIN RATIO 0.92 (1.00-1.93); ALKALINE PHOSPHATASE 77 U/L (45-117); ALT/SGPT 23 U/L (12-78); ANION GAP 7 MEQ/L (8-16); AST/SGOT 24 U/L (7-37); BILIRUBIN,TOTAL 0.4 MG/DL (0.2-1.0); BLOOD UREA NITROGEN 14 MG/DL (7-18); CALCIUM LEVEL 7.8 MG/DL (8.5-10.1); CARBON DIOXIDE LEVEL 26 MEQ/L (21-32); CHLORIDE LEVEL 107 MEQ/L (98-107); CREATININE FOR GFR 0.95 MG/DL (0.70-1.30); GLOMERULAR FILTRATION RATE > 60.0 (>56); GLUCOSE, FASTING 96 MG/DL (70-100); MAGNESIUM LEVEL 1.9 MG/DL (1.8-2.4); POTASSIUM SERUM 4.1 MEQ/L (3.5-5.1); SODIUM LEVEL 140 MEQ/L (136-145); TOTAL PROTEIN 6.9 GM/DL (6.4-8.2)
== END 2018-01-15 17:15 | disposition home or self-care (01) | DRG 683 ==
LOC: M ED 02:38 → M ED INP 05:58 → M MS5PR 15:20
PROVIDERS: Hospitalist
DX: N17.9 Acute kidney failure, unspecified (principal); R45.851 Suicidal ideations; E87.2 Acidosis; E86.0 Dehydration; R29.6 Repeated falls; I10 Essential (primary) hypertension; F32.9 Major depressive disorder, single episode, unspecified; F10.129 Alcohol abuse with intoxication, unspecified; B18.2 Chronic viral hepatitis C; F12.10 Cannabis abuse, uncomplicated; F14.10 Cocaine abuse, uncomplicated; Z79.899 Other long term (current) drug therapy; F17.200 Nicotine dependence, unspecified, uncomplicated

== ENCOUNTER → 2018-03-21 | Outpatient (REF) | payer MEDICARE, MEDICAID ==
[2018-03-22 09:35] LABS: RUBELLA IgG QUALITATIVE IMMUNE (IMMUNE)
[2018-03-23 08:06] LABS: RUBEOLA IgG ANTIBODY >300.0 AU/mL (Immune >29.9)
== END ==
LOC: M LAB REF 17:19
DX: Z28.3 Underimmunization status (principal)
CPT/HCPCS: 86762

== ENCOUNTER → 2019-05-19 | Outpatient (CLI) | payer MEDICARE, MEDICAID ==
[~2019-05-19] MED LIST changes: -/ESCI20TA; -/WARF5TA; -/WARF5TA OR; +AMLO10TA5 PO; -AMLO5TAB2 PO; +AMLO5TAB6 PO; +CELE10TA PO; +CITA10TA5 PO; +CITA20TA7 PO; +COUM1TAB17; +COUM1TAB17 OR; +DOXE25CA PO; -ENOX40SY SC; +FOLI1TAB11 PO; -FOLI1TAB4 PO; -GABA-282 PO; +GABA-843 PO; +LEXA1TAB2; +LOVE1INJ SC; -MIRT45TA PO; +MIRT45TA4 PO; +MUSC1CRE TOP; +PATIENT COMMENTS; +PROC1CRE5 TOP; +QUET1TAB8 PO; +RISP1TAB42 PO; +THIA100T7 PO; -TRAZ-136 PO; +TRAZ-163 PO; +TRAZ1TAB10 PO
== END ==
LOC: M RAD 15:47
PROVIDERS: ATTEND Nurse Practitioner Family
DX: Z12.2 Encounter for screening for malignant neoplasm of respiratory organs (principal); Z87.891 Personal history of nicotine dependence

== ENCOUNTER → 2019-05-19 | Outpatient (CLI) | payer MEDICARE, MEDICAID ==
--- NOTE | 2019-05-19 19:23 | REP ---
LOW DOSE LUNG SCREENING CT: Axial images are performed of the chest for a low dose lung screening CT exam. No suspicious nodular opacity is seen bilaterally. There is no consolidating infiltrate. Inferiorly on the left there is mild scattered pleural thickening and interstitial fibrotic scarring. Metallic structure is seen in the soft-tissues inferolateral to the right axilla, lateral to the right scapula of uncertain significance. Heart is not enlarged. There does appear to be mild to moderate dilatation of the proximal thoracic aorta with approximate diameter of the ascending thoracic aorta 4.6 cm. IMPRESSION: BI-RADS Category [address] Mild pleural and parenchymal scarring right lung base with no suspicious nodular opacity. Recommend followup in one year. Electronically Signed by Jose G Savage MD 05/20/2019 10:06 A
== END ==
LOC: M RAD 15:54
PROVIDERS: ATTEND Nurse Practitioner Family
DX: Z12.2 Encounter for screening for malignant neoplasm of respiratory organs (principal); Z87.891 Personal history of nicotine dependence

== ENCOUNTER → 2019-10-10 | Outpatient (REF) | payer MEDICARE, MEDICAID ==
[~2019-10-10] MED LIST changes: -FLUO20CA19 PO; +FLUO20CA22 PO; +QUET100T2 PO; -QUET1TAB8 PO; -TRAZ-163 PO; +TRAZ-257 PO
[2019-10-10 12:48] LABS: BASO # 0.1 10^3/uL (0.0-0.2); BASO % 1.4 % (0.0-1.0); EOS # 0.5 10^3/uL (0.0-0.5); EOS % 6.1 % (0.0-3.0); HEMATOCRIT 44.8 % (42.0-52.0); HEMOGLOBIN 14.2 g/dl (13.5-17.5); LYMPH # 2.6 10^3/uL (1.5-5.0); LYMPH % 34.1 % (24.0-44.0); MEAN CORPUSCULAR HEMOGLOBIN 24.7 pg (27.0-33.0); MEAN CORPUSCULAR HGB CONC 31.7 g/dl (32.0-36.5); MONO # 0.8 10^3/uL (0.0-0.8); MONO % 10.9 % (0.0-5.0); NEUTROPHILS # 3.6 10^3/uL (1.5-8.5); NEUTROPHILS % 46.8 % (36.0-66.0); PLATELET COUNT, AUTOMATED 197 10^3/uL (150-450); RED BLOOD COUNT 5.74 10^6/uL (4.30-6.10); WHITE BLOOD COUNT 7.7 10^3/uL (4.0-10.0)
[2019-10-10 12:57] LABS: ALT/SGPT 22 U/L (12-78); BILIRUBIN,TOTAL 0.4 MG/DL (0.2-1.0); BLOOD UREA NITROGEN 14 MG/DL (7-18); CALCIUM LEVEL 8.3 MG/DL (8.8-10.2); CARBON DIOXIDE LEVEL 27 MEQ/L (21-32); CHLORIDE LEVEL 110 MEQ/L (98-107); CHOLESTEROL LEVEL 157 MG/DL (<200); CREATININE FOR GFR 0.96 MG/DL (0.70-1.30); FREE T4 0.89 NG/DL (0.76-1.46); GLOMERULAR FILTRATION RATE > 60.0 (>49); GLUCOSE, FASTING 101 MG/DL (70-100); HDL CHOLESTEROL 72 MG/DL (>40); LDL CHOLESTEROL 64 MG/DL (<100); MAGNESIUM LEVEL 1.9 MG/DL (1.8-2.4); NON-HDL-C 85 MG/DL; POTASSIUM SERUM 4.2 MEQ/L (3.5-5.1); SODIUM LEVEL 142 MEQ/L (136-145); TOTAL PROTEIN 7.6 GM/DL (6.4-8.2); TRIGLYCERIDES LEVEL 105 MG/DL (<150)
[2019-10-10 12:59] LABS: VITAMIN B12 LEVEL 478 PG/ML
[2019-10-10 13:00] LABS: FOLATE 6.2 NG/ML
[2019-10-10 13:06] LABS: TOTAL 25(OH) VITAMIN D 11.2 NG/ML (30.0-100.0)
== END ==
LOC: M LAB REF 11:34
PROVIDERS: ATTEND Nurse Practitioner Family
DX: Z00.00 Encounter for general adult medical examination without abnormal findings (principal); Z13.9 Encounter for screening, unspecified; Z72.0 Tobacco use; I10 Essential (primary) hypertension; Z79.51 Long term (current) use of inhaled steroids; Z79.899 Other long term (current) drug therapy
CPT/HCPCS: 80053; 80061; 82306; 82607; 82746; 83036; 83735; 84439; 84443; 85025; G0103

== ENCOUNTER 2019-10-25 19:53 | Emergency (ER) | payer MEDICARE, MEDICAID ==
[~2019-10-25] VITALS: Ht 185.4 cm; Wt 80.5 kg
[2019-10-25] MEDS ORDERED: LORazepam 1 MG TAB PO ONE (21:15)
--- NOTE | 2019-10-25 21:18 | REPVR ---
PROCEDURE INFORMATION: Exam: CT Head Without Contrast Exam date and time: 10/25/2019 8:34 PM Age: 59 years old Clinical indication: Pain; Headache; Additional info: Headache on cocaine TECHNIQUE: Imaging protocol: Computed tomography of the head without contrast. Radiation optimization: All CT scans at this facility use at least one of these dose optimization techniques: automated exposure control; mA and/or kV adjustment per patient size (includes targeted exams where dose is matched to clinical indication); or iterative reconstruction. COMPARISON: CT Head without contrast 01/14/2018 3:24 AM FINDINGS: Brain: There is increase in the extra-axial CSF containing space anterior to the frontal lobes bilaterally which is unchanged from previous. Mild cerebral atrophy. No hemorrhage. No mass effect. Midline structures intact. Ventricles: Normal. No ventriculomegaly. Bones/joints: Unremarkable. No acute fracture. Sinuses: There is mild mucosal thickening in the ethmoid air cells. Mastoid air cells: Visualized mastoid air cells are well aerated. Soft tissues: Focal scalp thickening over the left parietal bone at the high convexity without change from previous. IMPRESSION: 1. No acute findings 2. Mild cerebral atrophy without change from previous. 3. Mild chronic ethmoid sinusitis Electronically signed by: Kelli Chu On 10/25/2019 21:17:33 PM
[2019-10-25 22:38] VITALS: BP 143/96
== END 2019-10-25 22:49 | disposition home or self-care (01) ==
LOC: M ED 19:53
DX: R51 Headache (principal); T40.5X5A Adverse effect of cocaine, initial encounter; F14.10 Cocaine abuse, uncomplicated; F32.9 Major depressive disorder, single episode, unspecified; F17.200 Nicotine dependence, unspecified, uncomplicated; I10 Essential (primary) hypertension; Z79.899 Other long term (current) drug therapy

== ENCOUNTER 2019-12-09 21:54 | Inpatient (IN) | payer MEDICARE, MEDICAID ==
[~2019-12-09] VITALS: Ht 185.4 cm; Wt 75.6 kg
[2019-12-09] MEDS ORDERED: ASPIRIN 81 MG CHEW TABLET PO ONE (22:15)
[2019-12-09 22:50] LABS: VENOUS HCO3 14.7 MEQ/L (23.0-27.0); VENOUS O2 SATURATION 99.4 % (60.0-80.0); VENOUS PARTIAL PRESSURE O2 233.9 mmHg (30.0-50.0); VENOUS PH 7.183 UNITS (7.330-7.430); VENOUS STANDARD HCO3 14.7 MEQ/L; VENOUS TOTAL CO2 15.9 MEQ/L (24.0-28.0)
[2019-12-09 22:52] LABS: BASO # 0.1 10^3/uL (0.0-0.2); BASO % 1.1 % (0.0-1.0); EOS # 0.2 10^3/uL (0.0-0.5); EOS % 2.8 % (0.0-3.0); HEMATOCRIT 49.7 % (42.0-52.0); HEMOGLOBIN 15.5 g/dl (13.5-17.5); LYMPH # 2.9 10^3/uL (1.5-5.0); LYMPH % 33.9 % (24.0-44.0); MEAN CORPUSCULAR HEMOGLOBIN 24.6 pg (27.0-33.0); MEAN CORPUSCULAR HGB CONC 31.2 g/dl (32.0-36.5); MEAN CORPUSCULAR VOLUME 78.8 fl (80.0-96.0); MONO # 0.9 10^3/uL (0.0-0.8); MONO % 10.3 % (0.0-5.0); NEUTROPHILS # 4.3 10^3/uL (1.5-8.5); NEUTROPHILS % 50.8 % (36.0-66.0); PLATELET COUNT, AUTOMATED 206 10^3/uL (150-450); RED BLOOD COUNT 6.31 10^6/uL (4.30-6.10); WHITE BLOOD COUNT 8.5 10^3/uL (4.0-10.0)
[2019-12-09 23:09] LABS: ALBUMIN 4.1 GM/DL (3.2-5.2); ALT/SGPT 21 U/L (12-78); BILIRUBIN,DIRECT 0.1 MG/DL (0.0-0.2); BILIRUBIN,TOTAL 0.5 MG/DL (0.2-1.0); BLOOD UREA NITROGEN 8 MG/DL (7-18); CALCIUM LEVEL 8.6 MG/DL (8.8-10.2); CARBON DIOXIDE LEVEL 16 MEQ/L (21-32); CHLORIDE LEVEL 102 MEQ/L (98-107); CK-MB VALUE MASS 5.1 NG/ML (<3.6); CPK CREATINE PHOSPHOKINASE 290 U/L (39-308); CREATININE FOR GFR 1.28 MG/DL (0.70-1.30); ETHYL ALCOHOL (ETHANOL) 0.011 % (0.000-0.010); GLOMERULAR FILTRATION RATE > 60.0 (>49); GLUCOSE, FASTING 110 MG/DL (70-100); MB/CK RELATIVE INDEX 1.76 (< OR =4); POTASSIUM SERUM 4.2 MEQ/L (3.5-5.1); SODIUM LEVEL 137 MEQ/L (136-145); TOTAL PROTEIN 8.4 GM/DL (6.4-8.2); TROPONIN I 0.02 NG/ML (< 0.10)
[2019-12-10] VITALS (7 sets, daily range): BP systolic 132–160; BP diastolic 59–98
[2019-12-10] MEDS ORDERED: SODIUM BICARBONATE 150 MEQ in D5W 1,000 ML IV SCH ×2
[2019-12-10] MEDS ORDERED: GLUCOSE 4 GM CHEW TABLET PO PRN (00:15)
[2019-12-10] MEDS ORDERED: DEXTROSE 50% 50 ML SYRINGE IV PRN (00:15)
[2019-12-10] MEDS ORDERED: GLUCAGON FOR INJ 1 MG VIAL (J1610) SC PRN (00:15)
[2019-12-10 00:48] LABS: HEMOGLOBIN A1c 4.9 %
[2019-12-10] MEDS ORDERED: ISOVUE-370 76% 100ML VIAL (Q9967) As Ordered ONE (01:25)
[2019-12-10 01:48] LABS: ACETAMINOPHEN LEVEL < 2.0 UG/ML (10.0-30.0); ACETONE/KETONE 12.24 MG/DL (<2.81); ETHYL ALCOHOL (ETHANOL) < 0.003 % (0.000-0.010); SALICYLATE LEVEL 4.2 MG/DL (5.0-30.0)
--- NOTE | 2019-12-10 01:56 | REPVR ---
PROCEDURE INFORMATION: Exam: CT Abdomen And Pelvis With Contrast Exam date and time: 12/10/2019 1:19 AM Age: 59 years old Clinical indication: Abdominal pain; Generalized; Additional info: Abd pain TECHNIQUE: Imaging protocol: Computed tomography of the abdomen and pelvis with intravenous contrast. Radiation optimization: All CT scans at this facility use at least one of these dose optimization techniques: automated exposure control; mA and/or kV adjustment per patient size (includes targeted exams where dose is matched to clinical indication); or iterative reconstruction. Contrast material: ISO; Contrast volume: 100 ml; Contrast route: AC; COMPARISON: CT ABD PELVIS WITH CONTRAST 01/23/2017 12:58 PM FINDINGS: Lungs: No suspicious mass or airspace process in the visualized lung bases. Linear scarring or atelectasis bilaterally at the lung bases. Liver: Liver appears normal with no focal abnormality. Gallbladder and bile ducts: Gallstones are present in the lumen of the contracted gallbladder. No bile duct obstruction. Pancreas: Pancreas appears normal. No focal mass or peripancreatic inflammation. Spleen: Spleen appears homogeneous without focal mass. Adrenals: Adrenal glands are normal in appearance. Kidneys and ureters: Kidneys appear normal, with no stone, solid mass or hydronephrosis. Stomach and bowel: No evidence of small bowel obstruction. Diverticular changes are present within the colon without inflammation. Multiple fluid-filled loops of nondilated bowel with enhancing mucosa are present. Fluid in the distal rectosigmoid colon suggests possible malabsorption from enteritis. Appendix: Normal caliber appendix is identified, with no adjacent inflammation. Intraperitoneal space: No pneumoperitoneum. Vasculature: No aortic aneurysm. Main portal and splenic veins enhance normally. Lymph nodes: No enlarged lymph nodes. Bladder: Urinary bladder appears normal. Bones/joints: Degenerative changes are present in the lumbar spine and hips as seen previously IMPRESSION: 1. Appearance of small bowel and colon suggests possible inflammatory or infectious enteritis without obstruction 2. Cholelithiasis without biliary obstruction. Gallbladder is contracted and wall thickness cannot be well evaluated Electronically signed by: Junito Corcoran On 12/10/2019 01:55:36 AM
[2019-12-10 03:44] LABS: ABG BASE EXCESS 0.6 (-2.0-2.0); ABG HCO3 24.9 MEQ/L (22.0-26.0); ABG O2 SATURATION 96.8 % (95.0-99.0); ABG PARTIAL PRESSURE CO2 39.1 mmHg (35.0-45.0); ABG TOTAL CO2 26.1 MEQ/L (23.0-31.0); ABG pH (ARTERIAL) 7.422 UNITS (7.350-7.450)
[2019-12-10] MEDS: CIPROFLOXACIN 400 MG in IV 1 EA IV SCH ×2 (03:52→16:54)
--- NOTE | 2019-12-10 03:57 | REP ---
Clinical: Chest pain . Comparison: 05/10/2017 . Findings: The mediastinum and cardiac silhouette are stable and within normal limits for portable technique. The lung parham demonstrate chronic-appearing changes without effusion, or pneumothorax. Subtle right lower lobe atelectasis and possible small pleural reaction cannot be excluded. Skeletal structures are intact. Impression: Questionable right lower lobe atelectasis along with underlying chronic changes. Electronically Signed by Andrea Hart MD 12/10/2019 03:48 A
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
[2019-12-10] MEDS ORDERED: MULTIVITAMIN -ADULT INJECTION 10 ML, THIAMINE INJection 100 MG, FOLIC ACID 1 MG in NS 1... IV ONE (05:00)
[2019-12-10] MEDS: metroNIDAZOLE 500 MG in IV 1 EA IV SCH ×3 (05:35→21:34)
[2019-12-10] MEDS ORDERED: HEPARIN SOD (PORCINE) 5000UNITS/ML VIAL (J1644 PER 1000UNITS) SQ SCH (06:00)
[2019-12-10 06:10] LABS: HEMATOCRIT 42.6 % (42.0-52.0); HEMOGLOBIN 13.8 g/dl (13.5-17.5); MEAN CORPUSCULAR HEMOGLOBIN 24.4 pg (27.0-33.0); MEAN CORPUSCULAR HGB CONC 32.4 g/dl (32.0-36.5); MEAN CORPUSCULAR VOLUME 75.3 fl (80.0-96.0); PLATELET COUNT, AUTOMATED 194 10^3/uL (150-450); RED BLOOD COUNT 5.66 10^6/uL (4.30-6.10); WHITE BLOOD COUNT 8.1 10^3/uL (4.0-10.0)
[2019-12-10 06:47] LABS: BLOOD UREA NITROGEN 10 MG/DL (7-18); CALCIUM LEVEL 8.5 MG/DL (8.8-10.2); CARBON DIOXIDE LEVEL 29 MEQ/L (21-32); CHLORIDE LEVEL 102 MEQ/L (98-107); CK-MB VALUE MASS 3.3 NG/ML (<3.6); CPK CREATINE PHOSPHOKINASE 520 U/L (39-308); CREATININE FOR GFR 1.04 MG/DL (0.70-1.30); GLOMERULAR FILTRATION RATE > 60.0 (>49); GLUCOSE, FASTING 79 MG/DL (70-100); MB/CK RELATIVE INDEX 0.63 (< OR =4); POTASSIUM SERUM 3.5 MEQ/L (3.5-5.1); SODIUM LEVEL 136 MEQ/L (136-145); TROPONIN I 0.04 NG/ML (< 0.10)
[2019-12-10] MEDS: amLODIPine 10 MG TAB PO SCH (08:31)
[2019-12-10] MEDS ORDERED: NS 1,000 ML IV ONE ×3 (10:00→11:00)
[2019-12-10 12:41] LABS: CK-MB VALUE MASS 2.8 NG/ML (<3.6); MB/CK RELATIVE INDEX 0.56 (< OR =4); TROPONIN I 0.06 NG/ML (< 0.10)
--- NOTE | 2019-12-10 15:07 | ECGEPIP ---
[facility] - ED Test Date: 2019-12-09 Pat Name: GIANNI GARCIA Department: Room: [place] [address] Gender: Male Promotion Writer: CIERRA : 1960 Requested By: MECCA AMAYA Order Number: [id number] Reading MD: Shannan Albert Measurements Intervals [place] Rate: 78 P: 59 WV: 144 QRS: 36 QRSD: 80 T: 251 QT: 440 QTc: 502 Interpretive Statements SINUS RHYTHM POSSIBLE LEFT ATRIAL ENLARGEMENT LEFT VENTRICULAR HYPERTROPHY AND ST-T CHANGE VS ISCHEMIA CLINICAL CORRELATION FOR ACUTE ISCHEMIA Electronically Signed on 12-10-2019 15:06:53 EDT by Shannan Albert
[2019-12-10 19:18] LABS: CK-MB VALUE MASS 2.1 NG/ML (<3.6); MB/CK RELATIVE INDEX 0.47 (< OR =4); TROPONIN I 0.12 NG/ML (< 0.10)
[2019-12-11] VITALS: BP 164/98
[2019-12-11] MEDS: CIPROFLOXACIN 400 MG in IV 1 EA IV SCH (03:35)
[2019-12-11 04:00] VITALS: BP 164/106
[2019-12-11] MEDS: metroNIDAZOLE 500 MG in IV 1 EA IV SCH (05:02)
[2019-12-11 06:16] LABS: HEMATOCRIT 39.8 % (42.0-52.0); HEMOGLOBIN 12.6 g/dl (13.5-17.5); MEAN CORPUSCULAR HEMOGLOBIN 24.1 pg (27.0-33.0); MEAN CORPUSCULAR HGB CONC 31.7 g/dl (32.0-36.5); MEAN CORPUSCULAR VOLUME 76.2 fl (80.0-96.0); PLATELET COUNT, AUTOMATED 178 10^3/uL (150-450); RED BLOOD COUNT 5.22 10^6/uL (4.30-6.10); WHITE BLOOD COUNT 6.7 10^3/uL (4.0-10.0)
[2019-12-11 06:35] LABS: BLOOD UREA NITROGEN 12 MG/DL (7-18); CALCIUM LEVEL 8.3 MG/DL (8.8-10.2); CARBON DIOXIDE LEVEL 29 MEQ/L (21-32); CHLORIDE LEVEL 108 MEQ/L (98-107); CREATININE FOR GFR 0.89 MG/DL (0.70-1.30); GLOMERULAR FILTRATION RATE > 60.0 (>49); GLUCOSE, FASTING 95 MG/DL (70-100); MAGNESIUM LEVEL 1.8 MG/DL (1.8-2.4); POTASSIUM SERUM 3.7 MEQ/L (3.5-5.1); SODIUM LEVEL 141 MEQ/L (136-145)
[2019-12-11 08:00] VITALS: BP 180/100
[2019-12-11 08:13] VITALS: BP 180/100
[2019-12-11] MEDS: amLODIPine 10 MG TAB PO SCH (08:13)
[2019-12-11] MEDS ORDERED: FLAG500T PO (09:25)
[2019-12-11] MEDS ORDERED: CIPR-249 PO (09:25)
[2019-12-11 10:46] VITALS: BP 162/90
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
[2019-12-12 00:06] LABS: ACETONE Negative % (0.000-0.010); ISOPROPANOL Negative % (0.000-0.010); METHANOL Negative % (0.000-0.010)
== END 2019-12-11 11:05 | disposition home or self-care (01) | DRG 917 ==
LOC: M ED 21:54 → M ED INP 23:54 → ENRESERVTM 12-10 00:24 → ENRESERVDT 12-10 00:24 → M MSPAV 12-10 01:39
PROVIDERS: ADMIT General Practice; ATTEND Internal Medicine
DX: T40.5X1A Poisoning by cocaine, accidental (unintentional), initial encounter (principal); G92 Toxic encephalopathy; N17.9 Acute kidney failure, unspecified; E87.2 Acidosis; I10 Essential (primary) hypertension; B19.20 Unspecified viral hepatitis C without hepatic coma; F32.9 Major depressive disorder, single episode, unspecified; F17.200 Nicotine dependence, unspecified, uncomplicated; F14.10 Cocaine abuse, uncomplicated; F10.10 Alcohol abuse, uncomplicated; K52.9 Noninfective gastroenteritis and colitis, unspecified; Z79.899 Other long term (current) drug therapy; Z88.8 Allergy status to other drugs, medicaments and biological substances

== ENCOUNTER → 2020-06-08 | Outpatient (REF) | payer MEDICARE, MEDICAID ==
[~2020-06-08] MED LIST changes: -AMLO10TA5 PO; +AMLO1TAB24 PO; +AMLO1TAB25 PO; -AMLO5TAB6 PO; +CIPR-249 PO; -COUM6TAB PO; +COUM6TAB10 PO; +FLAG500T PO
[2020-06-08 12:44] LABS: BASO # 0.1 10^3/uL (0.0-0.2); BASO % 1.5 % (0.0-1.0); EOS # 0.5 10^3/uL (0.0-0.5); EOS % 8.2 % (0.0-3.0); HEMOGLOBIN 14.2 g/dl (13.5-17.5); LYMPH # 2.1 10^3/uL (1.5-5.0); LYMPH % 36.3 % (24.0-44.0); MEAN CORPUSCULAR HEMOGLOBIN 24.7 pg (27.0-33.0); MEAN CORPUSCULAR HGB CONC 31.6 g/dl (32.0-36.5); MEAN CORPUSCULAR VOLUME 78.1 fl (80.0-96.0); MONO # 0.7 10^3/uL (0.0-0.8); MONO % 11.7 % (0.0-5.0); NEUTROPHILS # 2.4 10^3/uL (1.5-8.5); NEUTROPHILS % 41.8 % (36.0-66.0); PLATELET COUNT, AUTOMATED 230 10^3/uL (150-450); RED BLOOD COUNT 5.76 10^6/uL (4.30-6.10); WHITE BLOOD COUNT 5.8 10^3/uL (4.0-10.0)
[2020-06-08 13:40] LABS: ALBUMIN 3.7 GM/DL (3.2-5.2); ALT/SGPT 18 U/L (12-78); BILIRUBIN,TOTAL 0.5 MG/DL (0.2-1.0); BLOOD UREA NITROGEN 16 MG/DL (7-18); CARBON DIOXIDE LEVEL 26 MEQ/L (21-32); CHLORIDE LEVEL 109 MEQ/L (98-107); CHOLESTEROL LEVEL 171 MG/DL (<200); CHOLESTEROL RISK RATIO 2.035 (<5); GLOMERULAR FILTRATION RATE > 60.0 (>49); GLUCOSE, FASTING 85 MG/DL (70-100); HDL CHOLESTEROL 84 MG/DL (>40); LDL CHOLESTEROL 79 MG/DL (<100); NON-HDL-C 87 MG/DL; SODIUM LEVEL 139 MEQ/L (136-145); THYROID STIMULATING HORMONE 0.764 uIU/ML (0.358-3.740); TOTAL PROTEIN 7.6 GM/DL (6.4-8.2); TRIGLYCERIDES LEVEL 38 MG/DL (<150)
[2020-06-08 13:47] LABS: HEMOGLOBIN A1c 5.3 %
== END ==
LOC: M LAB REF 11:39
PROVIDERS: ATTEND Physician Assistant
DX: I10 Essential (primary) hypertension (principal); Z13.228 Encounter for screening for other metabolic disorders

== ENCOUNTER → 2020-08-10 | Outpatient (REF) | payer MEDICARE, MEDICAID ==
[2020-08-10 12:46] LABS: ALT/SGPT 24 U/L (12-78); BILIRUBIN,TOTAL 0.5 MG/DL (0.2-1.0); BLOOD UREA NITROGEN 14 MG/DL (7-18); CALCIUM LEVEL 9.1 MG/DL (8.8-10.2); CARBON DIOXIDE LEVEL 32 MEQ/L (21-32); CHLORIDE LEVEL 107 MEQ/L (98-107); CREATININE FOR GFR 1.09 MG/DL (0.70-1.30); GLOMERULAR FILTRATION RATE > 60.0 (>49); GLUCOSE, FASTING 101 MG/DL (70-100); POTASSIUM SERUM 5.4 MEQ/L (3.5-5.1); SODIUM LEVEL 141 MEQ/L (136-145); TOTAL PROTEIN 7.7 GM/DL (6.4-8.2)
== END ==
LOC: M LAB REF 11:17
PROVIDERS: ATTEND Physician Assistant
DX: E87.5 Hyperkalemia (principal)

== ENCOUNTER 2020-09-15 23:35 | Emergency (ER) | payer MEDICARE, MEDICAID ==
[~2020-09-15] VITALS: Ht 185.4 cm; Wt 79.1 kg
[~2020-09-15 23:35] MED LIST changes: +GABA-282 PO; -GABA-843 PO; +HYDR-3490 PO; -HYDR25TAB PO; +QUET50TA3 PO; -QUET5TAB PO
--- OUTSIDE RECORDS SUMMARY | 2020-09-15 23:40 | CCD ---
Author Author Zoë Virgil Elyarmaryann Organization Unknown Address [address] [address] Phone Care Team Providers Care Steamtable Attendant Railroad Name Role Phone Dominga Camp PCP Allergies, Adverse Reactions, Alerts Concept Allergy Name Reaction Severity Onset Date Status Documentation Date Phone Number Npid Taxonomy Code Taxonomy Desc Author Last Name Author Marcelo rst Name Concept Type 504580 fluoxetine unspecified 11/30/2016 Active 01/25/2017 933 [id number] Psychiatric/Mental Health Penny Tineo RX NORM Problem List Concept Problem Description Status Start Date Created Date Resolv ed Date Snomed Code F41.1 Generalized Anxiety Disorder Active 08/26/2019 08/26/2019 Medications Rx Norm Medication Route Route Concept Start Date Stop Date Dosage Anderson quency Duration Formula Strength Dosage Form Dosage Form Code Dosage Description Medication Id Account Npid Author First Name Author Last Name Taxonomy Code Taxonomy Desc Phone Number [id number] citalopram 07/25/2017 at bedtime 10 mg tablet 71044 [id number] Rivka Hinton [id number] Psychiatric/Mental Health 31 [phone] [id number] Risperdal 07/25/2017 twice a day 1 mg tablet 25016 [id number] Rivak Hinton [id number] Psychiatric/Mental Health 31 [phone] [id number] doxepin 07/25/2017 at bedtime 25 mg capsule as directed 73825 [id number] Rivka Hinton [id number] Psychiatric/Mental Health [phone] Social History Social History Element Description Concept Effective Date Smoking Status Unknown if ever smoked [id number] Immunizations No Data in Section Vital Signs No Data in Section Procedures Date Concept Id Description Targeted Site Concept Targeted Site Concept Type 08/12/2020 71692 Extended Individual Psychotherapy - 45 min CPT Patient has no history of implantable de vices Encounters Encounter Start Date End Date Encounter Type Description Diagnosis Di agnosis Desc Location Author First Name Author Last Name Npid Taxonomy Cod e Taxonomy Desc Phone Number Location Addr1 Location Addr2 Location City Location [place] Location Zip [id number] 08/12/2020 08/12/2020 61121 Extended Individual Psych otherapy - 45 min F41.1 Generalized Anxiety Disorder [facility] [phone] [id number] Art Therapist [phone] [address] [address] Plan of Treatment No Data in Section Lab Results No Data in Section Instructions No Data in Section Insurance Providers Insurance Id Policy Effective Date Policy Thru Date Company N jayme [id number] 2020 Dual Complete Me dicare Community Plan [id number] MEDICAID
--- OUTSIDE RECORDS SUMMARY | 2020-09-15 23:40 | CCD ---
Author [facility] Organization Unknown Address [address] [address] Phone Care Team Providers Care Rigging Slinger Name Role Phone Dominga Camp PCP Allergies, Adverse Reactions, Alerts Concept Allergy Name Reaction Severity Onset Date Status Documentation Date Phone Number Npid Taxonomy Code Taxonomy Desc Author Last Name Author Marcelo rst Name Concept Type 584426 fluoxetine unspecified 11/30/2016 Active 01/25/2017 865 [id number] Psychiatric/Mental Health Penny Tineo RX NORM Problem [...] Name Taxonomy Code Taxonomy Desc Phone Number [id number] citalopram 07/25/2017 at bedtime 10 mg tablet 54039 [phone] Rivka Hinton [id number] Psychiatric/Mental Health 31 [phone] Risperdal 07/25/2017 twice a day 1 mg tablet 28175 [phone] Rivka HintonVigneshdeclan [id number] Psychiatric/Mental Health 31 [phone] doxepin 07/25/2017 at bedtime 25 mg capsule as directed 11215 [id number] Rivka Francis [id number] Psychiatric/Mental Health [phone] Social History Social History Element Description Concept Effective Date Smoking Status Unknown if ever smoked [id number] Immunizations No Data in Section Vital Signs No Data in Section Procedures Date Concept Id Description Targeted Site Concept Targeted Site Concept Type 09/06/2020 16930 Extended Individual Psychotherapy - 45 min CPT Patient has no history of implantable de vices Encounters Encounter Start Date End Date Encounter Type Description Diagnosis Di agnosis Desc Location Author First Name Author Last Name Npid Taxonomy Cod e Taxonomy Desc Phone Number Location Addr1 Location Addr2 Location [facility] Location [facility] Location Zip [id number] 09/06/2020 09/06/2020 54015 Extended Individual Psych otherapy - 45 min F41.1 Generalized Anxiety Disorder [facility] [place] [phone] [id number] Art Therapist [phone] [address] [address] Plan of Treatment No Data in Section Lab Results No Data in Section Instructions No Data in Section Insurance Providers Insurance Id Policy Effective Date Policy Thru Date Company N jayme [id number] 2020 Dual Complete Me dicare Community Plan [id number] MEDICAID
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
--- OUTSIDE RECORDS SUMMARY | 2020-09-15 23:40 | CCD ---
Author Organization Unknown Address [address] [place] [address] Phone [phone] Care Team Providers Care Instant Potato Processor Name Role Phone Jackie Lowe Unavailable Unavailable Allergies Code Code System Name Reaction Severity Status Onset Haldol Anaphylaxis Severe Active Notes: HALIDO FOR ANXIETY Medications Name Status Start Date Stop Date amlodipine 10 mg tablet TAKE ONE TABLET BY MOUTH ONCE DAILY Active Not available citalopram 10 mg tablet TAKE ONE TABLET BY MOUTH ONCE DAILY Active Not available losartan 100 mg tablet TAKE ONE TABLET BY MOUTH ONCE DAILY Active Not available sildenafil 100 mg tablet 1/2-1 tablet 30 minutes prior to intercourse Active Not available Problems Name Status Onset [...] Results Lab Results None recorded. Past Encounters 08/10/2020 Jackie Lowe PA-C: [address] [place] [address], Ph. 08/09/2020 Hypertensive Disorder; Primary Erectile Dysfunction; Hyperkalemia Jackie Lowe PA-C: [address] [place] [address], Ph. 07/09/2020 Hypertensive Disorder; Depressive Disorder; Underweight; Hyperkalemia Jackie Lowe PA-C: [address] [place] [address], Ph. Social History Tobacco Smoking Status Light Tobacco Smoker (1 PPW) Vaccine List Notes: Pt refused flu vaccine this visit . Plan of Care Patient Instructions Your blood pressure is well controlled. Please notify your dentist and provide them with the letter from your visit today. Continue to take your medications as prescribed. Contact the office with any questions or concerns. Reminders Provider Appointments None recorded. Lab None recorded. Referral None recorded. Procedures None recorded. Surgeries None recorded. Imaging None recorded. Vitals 08/09/2020 08:40AM ESTABLISHED [id number] Height Weight BMI Blood Pressure 73 in 161 lbs 16 oz 21.4 kg/m2 135/85 mm[Hg] 07/09/2020 08:40AM ESTABLISHED [id number] Height Weight BMI Blood Pressure 73 in 157 lbs 16 oz 20.8 kg/m2 (1) 217/138 m m[Hg] (2) 179/113 mm[Hg] 09/02/2019 Height Weight Blood Pressure 73 in 176 lbs 2.08 oz 167/108 mm[Hg] 08/22/2019 Blood Pressure 164/104 mm[Hg] 03/26/2019 Height Weight Blood Pressure 73 in 174 lbs 2.08 oz 150/99 mm[Hg]
--- OUTSIDE RECORDS SUMMARY | 2020-09-15 23:40 | CCD ---
Author Organization Unknown Address [address] [place] [address] Phone [phone] Care Team Providers Care Bookseamer Blindstitch Name Role Phone Mynor Jackie Unavailable Unavailable Allergies Code Code System Name [...] Results Lab Results None recorded. Past Encounters 08/09/2020 Hypertensive Disorder; Primary Erectile Dysfunction; Hyperkalemia Jackie Lowe PA-C: [address] [place] [address], Ph. 07/09/2020 Hypertensive Disorder; Depressive Disorder; Underweight; Hyperkalemia Jackie Lowe PA-C: [address] [place] [address], Ph. Social History Tobacco Smoking Status Light [...] Imaging None recorded. Vitals 08/09/2020 08:40AM ESTABLISHED [id number] Height Weight BMI Blood Pressure 73 in 161 lbs 16 oz 21.4 kg/m2 135/85 mm[Hg] 07/09/2020 08:40AM ESTABLISHED [id number] Height Weight BMI Blood Pressure 73 in 157 lbs 16 oz 20.8 kg/m2 (1) 217/138 m m[Hg] (2) 179/113 mm[Hg] 09/02/2019 Height Weight Blood Pressure 73 in 176 lbs 2.08 oz 167/108 mm[Hg] 08/22/2019 Blood Pressure 164/104 mm[Hg] 03/26/2019 Height Weight Blood Pressure 73 in 174 lbs 2.08 oz 150/99 mm[Hg]
--- OUTSIDE RECORDS SUMMARY | 2020-09-15 23:40 | CCD ---
Author Author [facility] Organization [facility] Address Unknown Phone Unavailable Care Team Providers Care Bone Cooking Operator Name Role Phone RenettaoRashidaby PA Unavailable Unavailable Scordo, M Jackie PA Unavailable Unavailable Scordo, M Jackie PA Unavailable Unavailable Scordo, M Jackie PA Unavailable Unavailable Scordo, M Jackie PA Unavailable Unavailable Scordo, M Jackie PA Unavailable Unavailable Scordo, M Jackie PA Unavailable Unavailable Scordo, M Jackie PA Unavailable Unavailable Scordo, M Jackie PA Unavailable Unavailable Scordo, M Jackie PA Unavailable Unavailable Scordo, M Jackie PA Unavailable Unavailable Scordo, M Jackie PA Unavailable Unavailable Scordo, M Jackie PA Unavailable Unavailable Scordo, M Jackie PA Unavailable Unavailable Scordo, M Jackie PA Unavailable Unavailable Scordo, M Jackie PA Unavailable Unavailable Scordo, M Jackie PA Unavailable Unavailable Scordo, M Jackie PA Unavailable Unavailable Scordo, M Jackie PA Unavailable Unavailable Scordo, M Jackie PA Unavailable Unavailable Scordo, M Jackie PA Unavailable Unavailable Scordo, M Jackie PA Unavailable Unavailable Scordo, M Jackie PA Unavailable Unavailable Scordo, M Jackie PA Unavailable Unavailable Scordo, M Jackie PA Unavailable Unavailable Scordo, M Jackie PA Unavailable Unavailable Scordo, M Jackie PA Unavailable Unavailable Scordo, M Jackie PA Unavailable Unavailable Scordo, M Jackie PA Unavailable Unavailable Scordo, M Jackie PA Unavailable Unavailable Scordo, M Jackie PA Unavailable Unavailable Scordo, M Jackie PA Unavailable Unavailable Scordo, M Jackie PA Unavailable Unavailable Scordo, M Jackie PA Unavailable Unavailable Scordo, M Jackie PA Unavailable Unavailable Scordo, M Jackie PA Unavailable Unavailable Scordo, M Jackie PA Unavailable Unavailable Scordo, M Jackie PA Unavailable Unavailable Scordo, M Jackie PA Unavailable Unavailable Scordo, M Jackie PA Unavailable Unavailable Fernandez, PROPERTY VALUER PROPERTY VALUER Unavailable Unavailable Dominga Camp Unavailable Delma Sneed Unavailable Fernandez, F PROPERTY VALUER-BC Unavailable Unavailable Fernandez, F PROPERTY VALUER-BC Unavailable Unavailable Fernandez, F PROPERTY VALUER-BC Unavailable Unavailable Fernandez, F PROPERTY VALUER-BC Unavailable Unavailable Fernandez, F PROPERTY VALUER-BC Unavailable Unavailable Fernandez, F PROPERTY VALUER-BC Unavailable Unavailable Fernandez, F PROPERTY VALUER-BC Unavailable Unavailable Fernandez, F PROPERTY VALUER-BC Unavailable Unavailable Fernandez, F PROPERTY VALUER-BC Unavailable Unavailable Fernandez, F PROPERTY VALUER-BC Unavailable Unavailable Fernandez, F PROPERTY VALUER-BC Unavailable Unavailable Fernandez, F PROPERTY VALUER-BC Unavailable Unavailable Fernandez, F PROPERTY VALUER-BC Unavailable Unavailable Fernandez, F PROPERTY VALUER-BC Unavailable Unavailable Fernandez, F PROPERTY VALUER-BC Unavailable Unavailable Fernandez, F PROPERTY VALUER-BC Unavailable Unavailable Fernandez, F PROPERTY VALUER-BC Unavailable Unavailable Fernandez, F PROPERTY VALUER-BC Unavailable Unavailable Fernandez, F PROPERTY VALUER-BC Unavailable Unavailable Fernandez, F PROPERTY VALUER-BC Unavailable Unavailable Fernandez, F PROPERTY VALUER-BC Unavailable Unavailable Fernandez, F PROPERTY VALUER-BC Unavailable Unavailable Carola Sawyer Unavailable Re-disclosure Warning The records that you are about to access may contain information from federally-assisted alcohol or drug abuse programs. If such information is present, then the following federally mandated warning applies: This information has been disclosed to you from records protected by federal confidentiality rules (42 CFR part 2). The federal rules prohibit you from making any further disclosure of this information unless further disclosure is expressly permitted by the written consent of the person to whom it pertains or as otherwise permitted by 42 CFR part 2. A general authorization for the release of medical or other information is NOT sufficient for this purpose. The Federal rules restrict any use of the information to criminally investigate or prosecute any alcohol or drug abuse patient.The records that you are about to access may contain highly sensitive health information, the redisclosure of which is protected by Article 27-F of the [facility] Public Health law. If you continue you may have access to information: Regarding HIV / AIDS; Provided by facilities licensed or operated by the [facility] Office of Mental Health; or Provided by the [facility] Office for People With Developmental Disabilities. If such information is present, then the following [facility] mandated warning applies: This information has been disclosed to you from confidential records which are protected by state law. State law prohibits you from making any further disclosure of this information without the specific written consent of the person to whom it pertains, or as otherwise permitted by law. Any unauthorized further disclosure in violation of state law may result in a fine or fpc sentence or both. A general authorization for the release of medical or other information is NOT sufficient authorization for further disc losure. Allergies and Adverse Reactions Type Description Substance Reaction Status Data Source(s ) Propensity to adverse reactions to substance fluoxetine Fluoxetine 20 MG Oral Tablet Active [facility] ([facility]) Family History Family Member Name Family Member Gender Family Member Status Date o f Status Description Data Source(s) Unknown Male Problem [facility] ([facility], ) () Encounters Encounter Providers Location Date Indications Data Source(s ) Extended Individual Psychotherapy - 45 min Attender: Dominga Camp [facility] Assisted 09/06/2020 02:00:00 AM EST - 09/06/2020 02:00:00 AM EST [facility] ([facility]) Attender: Domigna Camp 09/06/2020 12:00:00 AM EST [facility] ([facility]) Extended Individual Psychotherapy - 45 min Attender: Dominga Camp [facility] 08/12/2020 12:00:00 PM EST - 08/12/2020 12:00:00 PM EST [facility] ([facility]) Attender: Stalinmaryann Zoë 08/12/2020 12:00:00 AM EST [facility] ([facility]) Jackie Lowe PA-C: [address], [place] [address], Ph. Attender: Jackie [facility] Medical 08/10/2020 12:00:00 AM EST JO ANN ([facility]) Jackie Lowe PA-C: [address], [place] [address], Ph. Attender: Jackie [facility] Medical 08/09/2020 12:00:00 AM EST JO ANN ([facility]) Jackie Lowe PA-C: [address], [place] [address], Ph. Attender: Jackie [facility] Medical 08/09/2020 12:00:00 AM EST JO ANN ([facility]) Jackie Lowe PA-C: [address], [place] [address], Ph. Attender: Jackie [facility] Medical 07/09/2020 12:00:00 AM EST JO ANN ([facility]) Jackie Lowe PA-C: [address], [place] [address], Ph. Attender: Jackie [facility] Medical 07/09/2020 12:00:00 AM EST JO ANN ([facility]) Jackie Lowe PA-C: [address] [place] [phone], Ph. Attender: Jackie [facility] Medical 07/09/2020 12:00:00 AM EST JO ANN ([facility]) Extended Individual Psychotherapy - 45 min Attender: Carlos Sawyer [facility] 06/08/2020 01:00:00 AM EDT - 06/08/2020 01:00:00 AM EDT [facility] ([facility]) Outpatient Attender: JOSE LUIS AMAYA FP 06/08/2020 12:00:11 AM EDT [facility] Attender: Carola Sawyer 06/08/2020 12:00:00 AM EDT [facility] ([facility]) Outpatient Attender: JOSE LUIS AMAYA FP 06/07/2020 12:28:01 PM EDT [facility] Outpatient Attender: Ashley AMAYA-BC FP 06/07/2020 12: 27:01 PM EDT [facility] Outpatient Attender: JOSE LUIS AMAYA FP 06/07/2020 11:54:00 AM EDT [facility] [id number]"Psychotherapy [facility] 12:15:00 PM EDT - 05/20/2020 12:15:00 PM EDT [facility] ([facility]) Attender: Carola Sawyer 05/20/2020 12:00:00 AM EDT [facility] ([facility]) Extended Individual Psychotherapy - 45 min Attender: Carlos Sawyer [facility] 04/29/2020 12:00:00 PM EDT - 04/29/2020 12:00:00 PM EDT [facility] ([facility]) Attender: Carola Sawyer 04/29/2020 12:00:00 AM EDT [facility] ([facility]) Outpatient Attender: JOSE LUIS AMAYA FP 04/15/2020 12:44:01 PM EDT [facility] TEMPMHCTelemed 30" Psychotherapy Attender: Carola Sawyer [facility] 02/26/2020 05:45:00 AM EDT - 02/26/2020 05:45:00 AM EDT [facility] ([facility]) Attender: Carola Silverio 02/26/2020 12:00:00 AM EDT [facility] ([facility]) [id number]"Psychotherapy [facility]/16/2020 04:30:00 AM EDT - 02/16/2020 04:30:00 AM EDT [facility] ([facility]) Attender: Carolacecilio Sawyer 02/16/2020 12:00:00 AM EDT [facility] ([facility]) TEMPMHCTelemed 30" Psychotherapy Attender: Carola Sawyer [facility] 01/26/2020 04:30:00 AM EDT - 01/26/2020 04:30:00 AM EDT [facility] ([facility]) Attender: Carolacecilio Sawyer 01/26/2020 12:00:00 AM EDT [facility] ([facility]) Outpatient Attender: JOSE LUIS QUINTANA 01/24/2020 12:14:23 AM EDT [facility] TEMPMHCTelemed 30" Psychotherapy Attender: Carola Sawyer [facility] 01/15/2020 05:15:00 AM EDT - 01/15/2020 05:15:00 AM EDT [facility] ([facility]) Attender: Carolacecilio Sawyer 01/15/2020 12:00:00 AM EDT [facility] ([facility]) TEMPMHCTelemed 30" Psychotherapy Attender: Carola Sawyer [facility] 01/02/2020 03:45:00 AM EDT - 01/02/2020 03:45:00 AM EDT [facility] ([facility]) Attender: Carola Sawyer 01/02/2020 12:00:00 AM EDT [facility] ([facility]) Outpatient Attender: Ashley QUINTANA 12/21/2019 05: 57:02 PM EDT [facility] Outpatient 12/19/2019 07:06:00 AM EDT [facility] Outpatient 12/19/2019 07:05:00 AM EDT [facility] Outpatient Attender: JOSE LUIS QUINTANA 12/18/2019 10:17:00 AM EDT [facility] [id number]"Psychotherapy [facility] 11/26/2019 09:00:00 AM EDT - 11/26/2019 09:00:00 AM EDT [facility] ([facility]) Attender: Carola Sawyer 11/26/2019 12:00:00 AM EDT [facility] ([facility]) Outpatient 11/19/2019 02:57:00 PM EDT [facility] Outpatient Attender: JOSE LUIS QUINTANA 11/15/2019 07:56:02 PM EDT [facility] Outpatient Attender: Ashley OSMAN FP 11/15/2019 07: 56:01 PM EDT [facility] Outpatient Attender: JOSE LUIS QUINTANA 11/13/2019 08:12:02 PM EDT [facility] Brief Individual Psychotherapy - 30 min Attender: Carola brady [facility] 10/31/2019 04:00:00 AM EST - 10/31/2019 04:00:00 AM EST [facility] ([facility]) Attender: Carola Sawyer 10/31/2019 12:00:00 AM EST [facility] ([facility]) Outpatient 10/30/2019 12:28:00 PM EST [facility] Outpatient Attender: Ashley OSMAN FP 10/27/2019 11: 18:00 AM EST [facility] Outpatient Attender: JOSE LUIS QUINTANA 10/18/2019 02:08:01 PM EST [facility] Outpatient Attender: Ashley QUINTANA 10/18/2019 02: 08:01 PM EST [facility] Outpatient Attender: Ashley QUINTANA 10/18/2019 01: 12:59 PM EST [facility] Outpatient Attender: JOSE LUIS QUINTANA 10/15/2019 03:59:00 PM [facility] Outpatient Attender: JOSE LUIS QUINTANA 10/10/2019 09:19:17 AM [facility] Outpatient Attender: JOSE LUIS QUINTANA 10/06/2019 09:01:07 PM [facility] Outpatient Attender: JOSE LUIS QUINTANA 10/06/2019 01:21:00 PM [facility] Outpatient Attender: Ashley QUINTANA 10/06/2019 01: 20:02 PM [facility] Brief Individual Psychotherapy - 30 min Attender: Carola brady [facility] 10/03/2019 12:15:00 PM EST - 10/03/2019 12:15:00 PM EST [facility] ([facility]) Attender: Carola Sawyer 10/03/2019 12:00:00 AM EST [facility] ([facility]) Outpatient Attender: JOSE LUIS QUINTANA 09/26/2019 09:01:06 PM [facility] Outpatient Attender: JOSE LUIS QUINTANA 09/26/2019 02:54:00 PM [facility] Psychiatric Diagnostic Evaluation (Non-Medical) Attender: Sa angy Sawyer [facility] 09/08/2019 03:00:00 AM EST - 09/08/2019 03:00:00 AM EST [facility] ([facility]) Attender: Carola Sawyer 09/08/2019 12:00:00 AM EST [facility] ([facility]) Outpatient Attender: Ashley QUINTANA 09/07/2019 02: 22:01 PM [facility] Outpatient Attender: Ashley QUINTANA 09/04/2019 09: 23:00 AM [facility] Outpatient Attender: JOSE LUIS QUINTANA 09/04/2019 09:09:01 AM [facility] Outpatient Attender: JOSE LUIS QUINTANA 09/03/2019 08:37:02 AM [facility] Outpatient Attender: JOSE LUIS QUINTANA 09/02/2019 09:01:05 PM [facility] Outpatient Attender: JOSE LUIS QUINTANA 09/02/2019 04:50:01 PM [facility] Outpatient Attender: JOSE LUIS AMAYA FP 09/02/2019 03:18:00 PM [facility] Outpatient Attender: JOSE LUIS AMAYA FP 09/02/2019 03:17:[address] [facility] Outpatient Attender: JOSE LUIS AMAYA FP 09/02/2019 02:10:02 PM [facility] Extended Individual Psychotherapy - 45 min Attender: Maren martins Naren [facility] 08/26/2019 02:30:00 AM EST - 08/26/2019 02:30:00 AM EST [facility] ([facility] Attender: Delma Sneed 08/26/2019 12:00:00 AM EST [facility] ([facility]) Outpatient Attender: JOSE LUIS AMAYA FP 08/22/2019 01:00:03 PM [facility] Outpatient Attender: Ashley AMAYA-BC 08/22/2019 12: 59:01 PM [facility] Outpatient Attender: JOSE LUIS AMAYA FP 08/22/2019 12:38:00 PM [facility] Outpatient Attender: JOSE LUIS AMAYA FP 08/22/2019 11:24:00 AM [facility] Outpatient Attender: JOSE LUIS AMAYA FP 08/15/2019 08:02:24 PM [facility] Insurance Providers Payer name Policy type / Coverage type Policy ID Covered libertarian ID Covered libertarian's relationship to paiz Policy Paiz Plan Information [facility] AZLE [id number] SP [id number] EMEDNY [id number] SP [id number] MEDICARE [id number] SP [id number] Medicare P [id number] S [id number] Medicaid S [id number] S [id number] MEDICAID [id number] SP [id number] MEDICARE C [id number] S [id number] MEDICAID M [id number] S [id number] MEDICARE [id number] SP [id number] A Medicare P [id number] S [id number] A Medicaid S [id number] S [id number] Medicare P [id number] S [id number] A ANSI-Medicaid [id number] Medicaid S [id number] S [id number] MEDICARE C [id number] S [id number] A [place] MEDICARE PART B C [id number] S [id number] Medicaid [place] Medig[place] Part B [id number] Self [id number] [place] Medicare Primary [id number] Self [id number] MEDICAID [id number] SP [id number] MEDICARE [id number] SP [id number] A MEDICAID [id number] SP [id number] MEDICAID [id number] SP [id number] [place] JE PART B C [id number] S [id number] [employer] O [id number] S 01 [id number] Medicaid Dental P [id number] S [id number] [employer] [id number] SP [id number] [employer] [id number] 01 [id number] [employer] [id number] SP [id number] A Problems, Conditions, and Diagnoses Code Display Name Description Problem Type Effective Dates Data Source(s) F41.1 Generalized anxiety disorder Generalized Anxiety Disor jaquan Condition 09/06/2020 12:00:00 AM [facility] ([facility]) [id number] Encounter for screening for other metabo lic disorders Encounter for screening for other metabolic disorders 06/07/2020 12:26:20 PM EDT [facility] V85.1 BMI 22.0-22.9 BMI 22.0-22.9 06/07/2020 12:26:20 PM EDT [facility] 268.9 vitamin D deficiency vitamin D deficiency 11/12 08:10:49 PM EDT [facility] [id number] Vitamin D deficiency Vitamin D Deficiency Problem 11/13/2019 12:00:00 AM EDT JO ANN ([facility]) [id number] Vitamin D deficiency Vitamin D Deficiency Problem 11/13/2019 12:00:00 AM EDT JO ANN ([facility]) 11574890 Vitamin D deficiency Vitamin D Deficiency Problem 11/13/2019 12:00:00 AM EDT JO [facility] ([facility]) 709.9 Skin lesion Skin lesion 09/02/2019 02:09:10 PM [facility] V70.0 Health Screening Health Screening 09/02/2019 02 :09:10 PM [facility] [id number] Clinical finding Clinical Finding Problem 12:00:00 AM EST - 07/09/2020 12:00:00 AM EST JO ANN ([facility]) 24014401 Disorder of skin and/or subcutaneous tis emilio Disorder of Skin And/or Subcutaneous Tissue Problem 09/02/2019 12:00:00 AM EST J OANN ([facility]) [id number] Clinical finding Clinical Finding Problem 12:00:00 AM EST - 07/09/2020 12:00:00 AM EST JO ANN ([facility]) 11427623 Disorder of skin and/or subcutaneous tis emilio Disorder of Skin And/or Subcutaneous Tissue Problem 09/02/2019 12:00:00 AM EST JO ANN ([facility]) [id number] Clinical finding Clinical Finding Problem 12:00:00 AM EST - 07/09/2020 12:00:00 AM EST JO [facility] ([facility]) 23236679 Disorder of skin and/or subcutaneous tis emilio Disorder of Skin And/or Subcutaneous Tissue Problem 09/02/2019 12:00:00 AM EST JO ANN ([facility]) 521.00 Dental caries Dental caries 08/22/2019 12:58:06 PM [facility] 264421108 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 Dental Caries Problem 08/22/2019 12:00:00 AM EST - 07/09/2020 12:00:00 AM EST JO ANN ([facility]) 295260528 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 Dental Caries Problem 08/22/2019 12:00:00 AM EST - 07/09/2020 12:00:00 AM EST JO [facility] ([facility]) 159973489 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 Dental Caries Problem 08/22/2019 12:00:00 AM EST - 07/09/2020 12:00:00 AM EST JO [facility] ([facility]) 476138636 SNOMED CT Concept SNOMED CT Concept Problem 03/26 12:00:00 AM EDT - 07/09/2020 12:00:00 AM EST JO [facility] ([facility]) 624858738 SNOMED CT Concept SNOMED CT Concept Problem 03/26 12:00:00 AM EDT - 07/09/2020 12:00:00 AM EST JO [facility] ([facility]) 806582786 SNOMED CT Concept SNOMED CT Concept Problem 03/26 12:00:00 AM EDT - 07/09/2020 12:00:00 AM EST JO ANN ([facility]) 189163002 Under immunized Under Immunized Problem 8 12:00:00 AM EDT - 07/09/2020 12:00:00 AM EST JO [facility] ([facility]) 945773571 Under immunized Under Immunized Problem 8 12:00:00 AM EDT - 07/09/2020 12:00:00 AM EST JO ANN ([facility]) 581906592 Under immunized Under Immunized Problem 8 12:00:00 AM EDT - 07/09/2020 12:00:00 AM EST JO ANN ([facility]) 788413733 Tobacco use and exposure - finding Tobacco Use a nd Exposure - Finding Problem 01/08/2018 12:00:00 AM EDT - 07/09/2020 12:00:00 AM JAYLYN CHERRY ([facility]) 207097449 Tobacco use and exposure - finding Tobacco Use a nd Exposure - Finding Problem 01/08/2018 12:00:00 AM EDT - 07/09/2020 12:00:00 AM JAYLYN CHERRY ([facility]) 767860999 Tobacco use and exposure - finding Tobacco Use a nd Exposure - Finding Problem 01/08/2018 12:00:00 AM EDT - 07/09/2020 12:00:00 AM JAYLYN CHERRY ([facility]) [id number] Dental caries on smooth surface penetrat ing into pulp Dental Caries on Smooth Surface Penetrating into Pulp Problem 015 12:00:00 AM EST - 07/09/2020 12:00:00 AM EST JO ANN ([facility]) 494602263 Disorder of teeth AND/OR supporting stru ctures Disorder of Teeth AND/OR Supporting Structures Problem 07/23/2015 12:00:00 AM ES T - 07/09/2020 12:00:00 AM EST JO ANN ([facility]) [id number] Dental caries on smooth surface penetrat ing into pulp Dental Caries on Smooth Surface Penetrating into Pulp Problem 015 12:00:00 AM EST - 07/09/2020 12:00:00 AM EST JO ANN ([facility]) 075788351 Disorder of teeth AND/OR supporting stru ctures Disorder of Teeth AND/OR Supporting Structures Problem 07/23/2015 12:00:00 AM ES T - 07/09/2020 12:00:00 AM EST JO ANN ([facility]) [id number] Dental caries on smooth surface penetrat ing into pulp Dental Caries on Smooth Surface Penetrating into Pulp Problem 015 12:00:00 AM EST - 07/09/2020 12:00:00 AM EST JO ANN ([facility]) 402294944 Disorder of teeth AND/OR supporting stru ctures Disorder of Teeth AND/OR Supporting Structures Problem 07/23/2015 12:00:00 AM ES T - 07/09/2020 12:00:00 AM EST JO ANN ([facility]) Surgeries/Procedures Procedure Description Date Indications Data Source(s) Extended Individual Psychotherapy - 45 min 09/06/2020 12:00:00 AM EST - 09/06/2020 12:00:00 AM EST [facility] ([facility]) Extended Individual Psychotherapy - 45 min 1 12:00:00 AM EST [facility] ([facility]) Extended Individual Psychotherapy - 45 min 08/12/2020 12:00:00 AM EST - 08/12/2020 12:00:00 AM EST [facility] ([facility]) Extended Individual Psychotherapy - 45 min 0 12:00:00 AM EST [facility] ([facility]) Extended Individual Psychotherapy - 45 min 06/08/2020 12:00:00 AM EDT - 06/08/2020 12:00:00 AM EDT [facility] ([facility]) Extended Individual Psychotherapy - 45 min 0 12:00:00 AM EDT [facility] ([facility]) [id number]"Psychotherapy 0 12:00:00 AM EDT - 05/20/2020 12:00:00 AM EDT [facility] ([facility]) [id number]"Psychotherapy 05/20/2020 12:00:00 AM EDT [facility] ([facility]) Extended Individual Psychotherapy - 45 min 04/29/2020 12:00:00 AM EDT - 04/29/2020 12:00:00 AM EDT [facility] ([facility]) Extended Individual Psychotherapy - 45 min 0 12:00:00 AM EDT [facility] ([facility]) TEMPMHCTelemed 30" Psychotherapy 020 12:00:00 AM EDT - 02/26/2020 12:00:00 AM EDT [facility] ([facility]) TEMPMHCTelemed 30" Psychotherapy 02/26/2020 12:00:00 A M EDT [facility] ([facility]) [id number]"Psychotherapy 0 12:00:00 AM EDT - 02/16/2020 12:00:00 AM EDT [facility] ([facility]) [id number]"Psychotherapy 02/16/2020 12:00:00 AM EDT [facility] ([facility]) TEMPMHCTelemed 30" Psychotherapy 020 12:00:00 AM EDT - 01/26/2020 12:00:00 AM EDT [facility] ([facility]) TEMPMHCTelemed 30" Psychotherapy 01/26/2020 12:00:00 A M EDT [facility] ([facility]) TEMPMHCTelemed 30" Psychotherapy 020 12:00:00 AM EDT - 01/15/2020 12:00:00 AM EDT [facility] ([facility]) TEMPMHCTelemed 30" Psychotherapy 01/15/2020 12:00:00 A M EDT [facility] ([facility]) TEMPMHCTelemed 30" Psychotherapy 020 12:00:00 AM EDT - 01/02/2020 12:00:00 AM EDT [facility] ([facility]) TEMPMHCTelemed 30" Psychotherapy 01/02/2020 12:00:00 A M EDT [facility] ([facility]) [id number]"Psychotherapy 0 12:00:00 AM EDT - 11/26/2019 12:00:00 AM EDT [facility] ([facility]) [id number]"Psychotherapy 11/26/2019 12:00:00 AM EDT [facility] ([facility]) Brief Individual Psychotherapy - 30 min 10/31/2019 12:00:00 AM EST - 10/31/2019 12:00:00 AM EST [facility] ([facility]) Brief Individual Psychotherapy - 30 min 10/31/2019 12: 00:00 AM EST [facility] ([facility]) Brief Individual Psychotherapy - 30 min 10/03/2019 12:00:00 AM EST - 10/03/2019 12:00:00 AM EST [facility] ([facility]) Brief Individual Psychotherapy - 30 min 10/03/2019 12: 00:00 AM EST [facility] ([facility]) Psychiatric Diagnostic Evaluation (Non-Medical) 09/08/2019 12:00:00 AM EST - 09/08/2019 12:00:00 AM EST [facility] ([facility]) Psychiatric Diagnostic Evaluation (Non-Medical) 2019 12:00:00 AM EST [facility] ([facility]) Extended Individual Psychotherapy - 45 min 08/26/2019 12:00:00 AM EST - 08/26/2019 12:00:00 AM EST [facility] ([facility]) Extended Individual Psychotherapy - 45 min 9 12:00:00 AM EST [facility] ([facility]) Results ID Date Data Source [id number] 06/07/2020 11:41:16 AM EDT [facility] Measurements & CalculationsHeight: 73 inches (6 ft. 1 in.) 185.42 cm Weight: 170 pounds 77.27 kg Body Mass Index (BMI): 22.51BMI Interpretation: Healthy WeightBody Surface Area (BSA): 2.01Weight Management Education Done (Nutrition/Physical Activity)Vital SignsTemperature: 97.6F tympanic Pulse Rate: 69 beats/minuteRespiratory Rate: 18 respirations/minuteBlood Pressure: 149/98 right arm sitting automaticO2 Saturation: 91% sittingVital Signs performed by: Stanton Self MA, June 07, 2020 12:04 PMInitial Intake Information From: patientRoom #: 13Infectious Disease / Travel ScreeningRecent travel for you or any close contacts? NoHave you had any close contact with anyone diagnosed with or under investigation for COVID-19 (coronavirus)? NoFever? NoRespiratory symptoms: cough, cold, congestion, shortness of breath, difficulty breathing? NoLoss of smell? NoLoss o f taste? NoSmoking, Tobacco, Vaping or Smoke Exposure StatusSmoke Status: current every day smokerTobacco Use: YesAdv to Quit: YesDo you vape? NoHealthcare HistorySince your last office visit...Have you been admitted to the hospital? NoHave you been to an emergency room (ER) or urgent care clinic? NoHave you seen another healthcare provider? NoHave you seen a dentist? Yes - NoCoIntake performed by: Stanton Self MA, June 07, 2020 11:57 AMRate Your HealthIn general, would you say your health is? GoodPain AssessmentAre you currently having any pain which... You would like your provider to address? No Affects your activity level? NoDepression Screening - PHQ-2Over the last two weeks, have you... Had little interest or pleasure in doing things? Not at all Been feeling down, depressed, or hopeless? Not at all PHQ-2 Score: 0Anxiety Screening - EDY-2Over the last two weeks, have you been... Feeling nervous, anxious, or on edge? Not at all Unable to stop or control worrying? Not at all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 is chipped on all surfaceds but the distal. Pt does not want to have it fixed. Pt states if I can't bite on it the way I do now just leave it it doesn't bother me. BP has been running high in adult med seen here. BP taken again today with manual cuff was 164/104. Pt provided a med clearance form and advised that he would need to get his clearance done prior to his scaling and root planning which would need to be reauthorized. Med Hx reviewed- no changes. Good pt- tight lip makes it difficult to get good access. N/V-Perio scaling once approved.Belkis Laughlin RDH by jena (08/22/2019 12:30 PM): Tooth Notes and Watches:- Tooth 9 Note: Pt wants to hold on any treatment. Pt states the tooth does not bother him. Belkis Laughlin RDH by jena (08/22/2019 12:24 PM): Assessment & Plan Problems:Added: Dental caries (ICD-521.00) (ICD10- K02.9)Medications:CELEXA 10 MG ORAL TABLETLOSARTAN POTASSIUM 100 MG ORAL TABLETAMLODIPINE BESYLATE 10 MG ORAL TABLETMULTI FOR HIM ORAL TABSAllergies:* HALIDO FOR ANXIETY (Critical)Orders:Oral Surgery Referral [CPT-15329] Clinical Visit Summary DeclinedSmoking, Tobacco or Smoke Exposure StatusSmoke Status: current every day smokerTobacco Use: YesAdv to Quit: YesClinical List ReviewProblem ReviewProblem List was reviewed and/or updated during this visit.Medication Reconciliation & ReviewMedication List was reviewed and/or updated during this visit, including review of any qdps-cfr-rohvbui medications, herbal therapies, and/or supplements.Allergy ReviewAllergy List was reviewed and/or updated during this visit. Name Value Range Interpretation Code Description Data Whit rce(s) Supporting Document(s) Procedure Social History Code Duration Value Status Description Data Source(s ) Smoking 09/06/2020 12:00:00 AM EST Unknown if ever smoked comp leted Unknown if ever smoked [facility] ([facility]) Smoking 08/12/2020 12:00:00 AM EST Unknown if ever smoked comp leted Unknown if ever smoked [facility] ([facility]) Smoking 06/08/2020 12:00:00 AM EDT Unknown if ever smoked comp leted Unknown if ever smoked [facility] ([facility]) Smoking 05/20/2020 12:00:00 AM EDT Unknown if ever smoked comp leted Unknown if ever smoked [facility] ([facility]) Smoking 04/29/2020 12:00:00 AM EDT Unknown if ever smoked comp leted Unknown if ever smoked [facility] ([facility]) Smoking 02/26/2020 12:00:00 AM EDT Unknown if ever smoked comp leted Unknown if ever smoked [facility] ([facility]) Smoking 02/16/2020 12:00:00 AM EDT Unknown if ever smoked comp leted Unknown if ever smoked [facility] ([facility]) Smoking 01/26/2020 12:00:00 AM EDT Unknown if ever smoked comp leted Unknown if ever smoked [facility] ([facility]) Smoking 01/15/2020 12:00:00 AM EDT Unknown if ever smoked comp leted Unknown if ever smoked [facility] ([facility]) Smoking 01/02/2020 12:00:00 AM EDT Unknown if ever smoked comp leted Unknown if ever smoked [facility] ([facility]) Smoking 11/26/2019 12:00:00 AM EDT Unknown if ever smoked comp leted Unknown if ever smoked [facility] ([facility]) Smoking 10/31/2019 12:00:00 AM EST Unknown if ever smoked comp leted Unknown if ever smoked [facility] ([facility]) Smoking 10/03/2019 12:00:00 AM EST Unknown if ever smoked comp leted Unknown if ever smoked [facility] ([facility]) Smoking 09/08/2019 12:00:00 AM EST Unknown if ever smoked comp leted Unknown if ever smoked [facility] ([facility]) Smoking 08/26/2019 12:00:00 AM EST Unknown if ever smoked comp leted Unknown if ever smoked [facility] ([facility]) Vital Signs ID Date Data Source UNK Name Value Range Interpretation Code Description Data Source(s) Body weight 2592 [oz_av] 2592 [oz_av] JO ANN ([facility]) Systolic blood pressure 135 mm[Hg] 135 mm[Hg] A [facility] ([facility]) Body mass index (BMI) [Ratio] 21.4 kg/m2 21.4 k g/m2 JO ANN ([facility]) Body height 73 [in_i] 73 [in_i] JO [facility] ([facility]) Diastolic blood pressure 85 mm[Hg] 85 mm[Hg] JO [facility] ([facility]) Body weight 2592 [oz_av] 2592 [oz_av] JO ANN ([facility]) Systolic blood pressure 135 mm[Hg] 135 mm[Hg] A [facility] ([facility]) Body mass index (BMI) [Ratio] 21.4 kg/m2 21.4 k g/m2 JO ANN ([facility]) Body height 73 [in_i] 73 [in_i] JO [facility] ([facility]) Diastolic blood pressure 85 mm[Hg] 85 mm[Hg] JO [facility] ([facility]) Body weight 2528 [oz_av] 2528 [oz_av] JO ANN ([facility]) Systolic blood pressure 217 mm[Hg] 217 mm[Hg] A [facility] ([facility]) Systolic blood pressure 179 mm[Hg] 179 mm[Hg] A [facility] ([facility]) Body mass index (BMI) [Ratio] 20.8 kg/m2 20.8 k g/m2 JO ANN ([facility]) Body height 73 [in_i] 73 [in_i] JO [facility] ([facility]) Diastolic blood pressure 138 mm[Hg] 138 mm[Hg] JO [facility] ([facility]) Diastolic blood pressure 113 mm[Hg] 113 mm[Hg] JO [facility] ([facility]) Body weight 2528 [oz_av] 2528 [oz_av] JO ANN ([facility]) Systolic blood pressure 217 mm[Hg] 217 mm[Hg] [facility] Systolic blood pressure 179 mm[Hg] 179 mm[Hg] A [facility] ([facility]) Body mass index (BMI) [Ratio] 20.8 kg/m2 20.8 k g/m2 JO ANN ([facility]) Body height 73 [in_i] 73 [in_i] JO ANN ([facility]) Diastolic blood pressure 138 mm[Hg] 138 mm[Hg] JO ANN ([facility]) Diastolic blood pressure 113 mm[Hg] 113 mm[Hg] JO [facility] ([facility]) Body weight 2528 [oz_av] 2528 [oz_av] JO ANN ([facility]) Systolic blood pressure 217 mm[Hg] 217 mm[Hg] [facility] Systolic blood pressure 179 mm[Hg] 179 mm[Hg] [facility] Body mass index (BMI) [Ratio] 20.8 kg/m2 20.8 k g/m2 JO ANN ([facility]) Body height 73 [in_i] 73 [in_i] JO ANN ([facility]) Diastolic blood pressure 138 mm[Hg] 138 mm[Hg] JO [facility] ([facility]) Diastolic blood pressure 113 mm[Hg] 113 mm[Hg] JO ANN ([facility]) Body weight 2818.08 [oz_av] 2818.08 [oz_av] ATH VIJAYA ([facility]) Systolic blood pressure 167 mm[Hg] 167 mm[Hg] [facility] Body height 73 [in_i] 73 [in_i] JO ANN ([facility]) Diastolic blood pressure 108 mm[Hg] 108 mm[Hg] JO ANN ([facility]) Body weight 2818.08 [oz_av] 2818.08 [oz_av] ATH VIJAYA ([facility]) Systolic blood pressure 167 mm[Hg] 167 mm[Hg] [facility] Body height 73 [in_i] 73 [in_i] JO ANN ([facility]) Diastolic blood pressure 108 mm[Hg] 108 mm[Hg] JO ANN ([facility]) Body weight 2818.08 [oz_av] 2818.08 [oz_av] ATH VIJAYA ([facility]) Systolic blood pressure 167 mm[Hg] 167 mm[Hg] A THENA ([facility]) Body height 73 [in_i] 73 [in_i] JO ANN ([facility]) Diastolic blood pressure 108 mm[Hg] 108 mm[Hg] JO ANN ([facility]) Systolic blood pressure 164 mm[Hg] 164 mm[Hg] [facility] Diastolic blood pressure 104 mm[Hg] 104 mm[Hg] JO ANN ([facility]) Systolic blood pressure 164 mm[Hg] 164 mm[Hg] A THENA ([facility]) Diastolic blood pressure 104 mm[Hg] 104 mm[Hg] JO ANN ([facility]) Systolic blood pressure 164 mm[Hg] 164 mm[Hg] A [facility] ([facility]) Diastolic blood pressure 104 mm[Hg] 104 mm[Hg] JO ANN ([facility])
[2020-09-15 23:48] VITALS: BP 106/67
--- OUTSIDE RECORDS SUMMARY | 2020-09-16 00:27 | CCD ---
Author Author [facility] Organization [facility] Address Unknown Phone Unavailable Care Team Providers Care Hand Candy Dipper Name Role Phone RenettaoRashidaby PA Unavailable Unavailable [...] M Jackie PA Unavailable Unavailable Scordo, M Jakcie PA Unavailable Unavailable Scordo, M Jackie PA Unavailable Unavailable Scordo, M Jackie PA Unavailable Unavailable Scordo, M Jackie PA Unavailable Unavailable Scordo, M Jackie PA Unavailable Unavailable Fernandez, SET UP MECHANIC STAMPING MACHINES SET UP MECH[employer]IC STAMPING [employer]ACHINES Unavailable Unavailable Dominga Camp Unavailable Delma Sneed Unavailable Fernandez, F [employer] UP [employer]-BC Unavailable Unavailable Fernandez, F [employer] UP [employer]-BC Unavailable Unavailable Fernandez, F [employer] UP [employer]-BC Unavailable Unavailable Fernandez, F SET UP ME[employer]-BC Unavailable Unavailable Fernandez, F SET UP MECH[employer]-BC Unavailable Unavailable Fernandez, F SET UP MECH[employer]-BC Unavailable Unavailable Fernandez, F SET UP ME[employer]-BC Unavailable Unavailable Fernandez, F SET UP ME[employer]-BC Unavailable Unavailable Fernandez, F SET UP MECH[employer]AMP[employer]ACH[employer]-BC Unavailable Unavailable Fernandez, F SET UP ME[employer]-BC Unavailable Unavailable Fernandez, F SET UP ME[employer]-BC Unavailable Unavailable Fernandez, F SET UP [employer]-BC Unavailable Unavailable Fernandez, F SET UP ME[employer]-BC Unavailable Unavailable Fernandez, F SET UP ME[employer]-BC Unavailable Unavailable Fernandez, F SET UP ME[employer]-BC Unavailable Unavailable Fernandez, F SET UP MECH[employer]-BC Unavailable Unavailable Fernandez, F SET UP MECH[employer]-BC Unavailable Unavailable Fernandez, F SET UP ME[employer]-BC Unavailable Unavailable Fernandez, F SET UP MECH[employer]ES-BC Unavailable Unavailable Fernandez, F SET UP MECH[employer]AMP[employer]-BC Unavailable Unavailable Fernandez, F SET UP ME[employer]-BC Unavailable Unavailable Fernandez, F SET UP ME[employer]-BC Unavailable Unavailable Carola Sawyer Unavailable Re-disclosure Warning [...] is protected by Article 27-F of the [facility] Public Health law. If you continue you may have access to information: Regarding HIV / AIDS; Provided by facilities licensed or operated by the [facility] Office of Mental Health; or Provided by the [facility] Office for People With Developmental Disabilities. If such information is present, then the following [facility] mandated warning applies: This information has been [...] law may result in a fine or senior living sentence or both. A general authorization for the release of medical or other information is NOT sufficient authorization for further disc losure. Allergies and Adverse Reactions Type Description Substance Reaction Status Data Source(s ) Propensity to adverse reactions to substance fluoxetine Fluoxetine 20 MG Oral Tablet Active [facility] ([facility]) Family History Family Member Name Family Member Gender Family Member Status Date o f Status Description Data Source(s) Unknown Male Problem [facility] ([facility] ) () Encounters Encounter Providers Location Date Indications Data Source(s ) Extended Individual Psychotherapy - 45 min Attender: Dominga Camp [facility] 09/06/2020 02:00:00 AM EST - 09/06/2020 02:00:00 AM EST [facility] ([facility]) Attender: Dominga Camp 09/06/2020 12:00:00 AM EST [facility] ([facility]) Extended Individual Psychotherapy - 45 min Attender: Dominga Camp [facility] 08/12/2020 12:00:00 PM EST - 08/12/2020 12:00:00 PM EST [facility] ([facility]) Attender: Stalinmaryann Zoë 08/12/2020 12:00:00 AM EST [facility] ([facility]) Jackie Lowe PA-C: [address], [place] [address], Ph. Attender: Jackie CABALLERO [facility] Medical 08/10/2020 12:00:00 AM EST JO ANN ([facility]) Jackie Lowe PA-C: [address], [place] [address], Ph. Attender: Jackie CABALLERO [facility] Medical 08/09/2020 12:00:00 AM EST JO ANN ([facility]) Jackie Lowe PA-C: [address], [place] [address], Ph. Attender: Jackie CABALLERO [facility] Medical 08/09/2020 12:00:00 AM EST JO ANN ([facility]) Jackie Lowe PA-C: [address], [place] [address], Ph. Attender: Jackie CABALLERO [facility] Medical 07/09/2020 12:00:00 AM EST JO ANN ([facility]) Jackie Lowe PA-C: [address], [place] [address], Ph. Attender: Jackie CABALLERO [facility] Medical 07/09/2020 12:00:00 AM EST JO ANN ([facility]) Jackie Lowe PA-C: [address] [place] [phone], Ph. Attender: Jackie [facility]FREY - [facility] 07/09/2020 12:00:00 AM EST JO ANN ([facility]) Extended Individual Psychotherapy - 45 min Attender: Carlos Sawyer [facility] 06/08/2020 01:00:00 AM EDT - 06/08/2020 01:00:00 AM EDT [facility] ([facility]) Outpatient Attender: JOSE LUIS AMAYA FP 06/08/2020 12:00:11 AM EDT [facility] Attender: Carola Sawyer 06/08/2020 12:00:00 AM EDT [facility] ([facility]) Outpatient Attender: JOSE LUIS AMAYA FP 06/07/2020 12:28:01 PM EDT [facility] Outpatient Attender: Ashley AMAYA-BC FP 06/07/2020 12: 27:01 PM EDT [facility] Outpatient Attender: JOSE LUIS AMAYA FP 06/07/2020 11:54:00 AM EDT [facility] [id number]"Psychotherapy [facility] 12:15:00 PM EDT - 05/20/2020 12:15:00 PM EDT [facility] ([facility]) Attender: Carola Sawyer 05/20/2020 12:00:00 AM EDT [facility] ([facility]) Extended Individual Psychotherapy - 45 min Attender: Carlos Sawyre [facility] 04/29/2020 12:00:00 PM EDT - 04/29/2020 12:00:00 PM EDT [facility] ([facility]) Attender: Carola Sawyer 04/29/2020 12:00:00 AM EDT [facility] ([facility]) Outpatient Attender: JOSE LUIS AMAYA FP 04/15/2020 12:44:01 PM EDT [facility] TEMPMHCTelemed 30" Psychotherapy Attender: Carola Sawyer [facility] 02/26/2020 05:45:00 AM EDT - 02/26/2020 05:45:00 AM EDT [facility] ([facility]) Attender: Carola Silverio 02/26/2020 12:00:00 AM EDT [facility] ([facility]) [id number]"Psychotherapy [facility]/16[facility] 04:30:00 AM EDT - 02/16/2020 04:30:00 AM EDT [facility] ([facility]) Attender: Carolacecilio Sawyer 02/16/2020 12:00:00 AM EDT [facility] ([facility]) TEMPMHCTelemed 30" Psychotherapy Attender: Carola Sawyer [facility] 01/26/2020 04:30:00 AM EDT - 01/26/2020 04:30:00 AM EDT [facility] ([facility]) Attender: Carolacecilio Sawyer 01/26/2020 12:00:00 AM EDT [facility] ([facility]) Outpatient Attender: JOSE LUIS QUINTANA 01/24/2020 12:14:23 AM EDT [facility] TEMPMHCTelemed 30" Psychotherapy Attender: Carola Sawyer [facility] 01/15/2020 05:15:00 AM EDT - 01/15/2020 05:15:00 AM EDT [facility] ([facility]) Attender: Carolacecilio Sawyer 01/15/2020 12:00:00 AM EDT [facility] ([facility]) TEMPMHCTelemed 30" Psychotherapy Attender: Carola Sawyer [facility] 01/02/2020 03:45:00 AM EDT - 01/02/2020 03:45:00 AM EDT [facility] ([facility]) Attender: Carola Sawyer 01/02/2020 12:00:00 AM EDT [facility] ([facility]) Outpatient Attender: Ashley QUINTANA 12/21/2019 05: 57:02 PM EDT [facility] Outpatient 12/19/2019 07:06:00 AM EDT [facility] Outpatient 12/19/2019 07:05:00 AM EDT [facility] Outpatient Attender: JOSE LUIS QUINTANA 12/18/2019 10:17:00 AM EDT [facility] [id number]"Psychotherapy [facility] 11/26/2019 09:00:00 AM EDT - 11/26/2019 09:00:00 AM EDT [facility] ([facility]) Attender: Carola Sawyer 11/26/2019 12:00:00 AM EDT [facility] ([facility]) Outpatient 11/19/2019 02:57:00 PM EDT [facility] Outpatient Attender: JOSE LUIS QUINTANA 11/15/2019 07:56:02 PM EDT [facility] Outpatient Attender: Ashley OSMAN FP 11/15/2019 07: 56:01 PM EDT [facility] Outpatient Attender: JOSE LUIS QUINTANA 11/13/2019 08:12:02 PM EDT [facility] Brief Individual Psychotherapy - 30 min Attender: Carola brady [facility] 10/31/2019 04:00:00 AM EST - 10/31/2019 04:00:00 AM EST [facility] ([facility]) Attender: Carola Sawyer 10/31/2019 12:00:00 AM EST [facility] ([facility]) Outpatient 10/30/2019 12:28:00 PM EST [facility] Outpatient Attender: Ashley OSMAN FP 10/27/2019 11: 18:00 AM EST [facility] Outpatient Attender: JOSE LUIS QUINTANA 10/18/2019 02:08:01 PM EST [facility] Outpatient Attender: Ashley QUINTANA 10/18/2019 02: 08:01 PM EST [facility] Outpatient Attender: Ashley QUINTANA 10/18/2019 01: 12:59 PM EST [facility] Outpatient Attender: JOSE LUIS QUINTANA 10/15/2019 03:59:00 PM [facility] Outpatient Attender: JOSE LUIS QUINTANA 10/10/2019 09:19:17 AM [facility] Outpatient Attender: JOSE LUIS QUINTANA 10/06/2019 09:01:07 PM [facility] Outpatient Attender: JOSE LUIS QUINTANA 10/06/2019 01:21:00 PM [facility] Outpatient Attender: Ashley QUINTANA 10/06/2019 01: 20:02 PM [facility] Brief Individual Psychotherapy - 30 min Attender: Carola brady [facility] 10/03/2019 12:15:00 PM EST - 10/03/2019 12:15:00 PM EST [facility] ([facility]) Attender: Carola Sawyer 10/03/2019 12:00:00 AM EST [facility] ([facility]) Outpatient Attender: JOSE LUIS QUINTANA 09/26/2019 09:01:06 PM [facility] Outpatient Attender: JOSE LUIS QUINTANA 09/26/2019 02:54:00 PM [facility] Psychiatric Diagnostic Evaluation (Non-Medical) Attender: Sa angy Sawyer [facility] 09/08/2019 03:00:00 AM EST - 09/08/2019 03:00:00 AM EST [facility] ([facility]) Attender: Carola Sawyer 09/08/2019 12:00:00 AM EST [facility] ([facility]) Outpatient Attender: Ashley QUINTANA 09/07/2019 02: 22:01 PM [facility] Outpatient Attender: Ashley QUINTANA 09/04/2019 09: 23:00 AM [facility] Outpatient Attender: JOSE LUIS QUINTANA 09/04/2019 09:09:01 AM [facility] Outpatient Attender: JOSE LUIS QUINTANA 09/03/2019 08:37:02 AM [facility] Outpatient Attender: JOSE LUIS QUINTANA 09/02/2019 09:01:05 PM [facility] Outpatient Attender: JOSE LUIS QUINTANA 09/02/2019 04:50:01 PM [facility] Outpatient Attender: JOSE LUIS AMAYA FP 09/02/2019 03:18:00 PM [facility] Outpatient Attender: JOSE LUIS AMAYA FP 09/02/2019 03:17:00 PM [facility] Outpatient Attender: JOSE LUIS AMAYA FP 09/02/2019 02:10:02 PM [facility] Extended Individual Psychotherapy - 45 min Attender: Maren martins Naren [facility] 08/26/2019 02:30:00 AM EST - 08/26/2019 02:30:00 AM EST [facility] ([facility] Attender: Delma Sneed 08/26/2019 12:00:00 AM EST [facility] ([facility]) Outpatient Attender: JOSE LUIS AMAYA FP 08/22/2019 01:00:03 PM [facility] Outpatient Attender: Ashley AMAYA-BC 08/22/2019 12: 59:01 PM [facility] Outpatient Attender: JOSE LUIS AMAYA FP 08/22/2019 12:38:00 PM [facility] Outpatient Attender: JOSE LUIS AMAYA FP 08/22/2019 11:24:00 AM [facility] Outpatient Attender: JOSE LUIS AMAYA FP 08/15/2019 08:02:24 PM [facility] Insurance Providers Payer name Policy type / Coverage type Policy ID Covered libertarian ID Covered libertarian's relationship to paiz Policy Paiz Plan Information [facility] [id number] SP [id number] [place] [id number] SP [id number] MEDICARE [id number] SP [id number] Medicare P [id number] S [id number] Medicaid S [id number] S [id number] MEDICAID [id number] SP [id number] MEDICARE C [id number] S [id number] [id number] MEDICAID M [id number] S [id number] MEDICARE [id number] SP [id number] A Medicare P [id number] S [id number] A Medicaid S [id number] S [id number] Medicare P [id number] S [id number] A ANSI-Medicaid [id number] Medicaid S [id number] S [id number] MEDICARE C [id number] S [id number] A [id number] MEDICARE PART B C [id number] S [id number] Medicaid [place] Medig[place] Part B [id number] Self [id number] [place] Medicare Primary [id number] Self [id number] MEDICAID [id number] SP [id number] MEDICARE [id number] SP [id number] A MEDICAID [id number] SP [id number] MEDICAID [id number] SP [id number] [place] JE PART B C [id number] S [id number] [employer]ANCE O [id number] S [id number] Medicaid Dental P [id number] S [id number] [employer] [id number] SP [id number] [employer]EL [employer]ANCE [id number] 01 [id number] [employer] [id number] SP [id number] A Problems, Conditions, and Diagnoses Code Display Name Description Problem Type Effective Dates Data Source(s) F41.1 Generalized anxiety disorder Generalized Anxiety Disor jaquan Condition 09/06/2020 12:00:00 AM [facility] ([facility]) [id number] Encounter for screening for other metabo lic disorders Encounter for screening for other metabolic disorders 06/07/2020 12:26:20 PM EDT [facility] V85.1 BMI 22.0-22.9 BMI 22.0-22.9 06/07/2020 12:26:20 PM EDT [facility] 268.9 vitamin D deficiency vitamin D deficiency 11/12 08:10:49 PM EDT [facility] [id number] Vitamin D deficiency Vitamin D Deficiency Problem 11/13/2019 12:00:00 AM EDT JO ANN ([facility]) 78558399 Vitamin D deficiency Vitamin D Deficiency Problem 11/13/2019 12:00:00 AM EDT JO ANN ([facility]) 91121968 Vitamin D deficiency Vitamin D Deficiency Problem 11/13/2019 12:00:00 AM EDT JO [facility] ([facility]) 709.9 Skin lesion Skin lesion 09/02/2019 02:09:10 PM [facility] V70.0 Health Screening Health Screening 09/02/2019 02 :09:10 PM [facility] [id number] Clinical finding Clinical Finding Problem 12:00:00 AM EST - 07/09/2020 12:00:00 AM EST JO ANN ([facility]) 13848185 Disorder of skin and/or subcutaneous tis emilio Disorder of Skin And/or Subcutaneous Tissue Problem 09/02/2019 12:00:00 AM EST JO ANN ([facility]) [id number] Clinical finding Clinical Finding Problem 12:00:00 AM EST - 07/09/2020 12:00:00 AM EST JO [facility] ([facility]) 08490041 Disorder of skin and/or subcutaneous tis emilio Disorder of Skin And/or Subcutaneous Tissue Problem 09/02/2019 12:00:00 AM EST JO ANN ([facility]) 999551828 Clinical finding Clinical Finding Problem 12:00:00 AM EST - 07/09/2020 12:00:00 AM EST JO [facility] ([facility]) 68365458 Disorder of skin and/or subcutaneous tis emilio Disorder of Skin And/or Subcutaneous Tissue Problem 09/02/2019 12:00:00 AM EST JO ANN ([facility]) 521.00 Dental caries Dental caries 08/22/2019 12:58:06 PM [facility] 459041685 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 Dental Caries Problem 08/22/2019 12:00:00 AM EST - 07/09/2020 12:00:00 AM EST JO [facility] ([facility]) 806520229 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 Dental Caries Problem 08/22/2019 12:00:00 AM EST - 07/09/2020 12:00:00 AM EST JO ANN ([facility]) 393906928 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 Dental Caries Problem 08/22/2019 12:00:00 AM EST - 07/09/2020 12:00:00 AM EST JO [facility] ([facility]) 931492480 SNOMED CT Concept SNOMED CT Concept Problem 03/26 12:00:00 AM EDT - 07/09/2020 12:00:00 AM EST [facility] ([facility]) 607063750 SNOMED CT Concept SNOMED CT Concept Problem 03/26 12:00:00 AM EDT - 07/09/2020 12:00:00 AM EST [facility] ([facility]) 959450044 SNOMED CT Concept SNOMED CT Concept Problem 03/26 12:00:00 AM EDT - 07/09/2020 12:00:00 AM EST JO [facility] ([facility]) 839811080 Under immunized Under Immunized Problem 8 12:00:00 AM EDT - 07/09/2020 12:00:00 AM EST [facility] ([facility]) 470754616 Under immunized Under Immunized Problem 8 12:00:00 AM EDT - 07/09/2020 12:00:00 AM EST JO [facility] ([facility]) 970915711 Under immunized Under Immunized Problem 8 12:00:00 AM EDT - 07/09/2020 12:00:00 AM EST JO [facility] ([facility]) 448923622 Tobacco use and exposure - finding Tobacco Use a nd Exposure - Finding Problem 01/08/2018 12:00:00 AM EDT - 07/09/2020 12:00:00 AM JAYLYN CHERRY ([facility]) 671190681 Tobacco use and exposure - finding Tobacco Use a nd Exposure - Finding Problem 01/08/2018 12:00:00 AM EDT - 07/09/2020 12:00:00 AM JAYLYN CHERRY ([facility]) 589116261 Tobacco use and exposure - finding Tobacco Use a nd Exposure - Finding Problem 01/08/2018 12:00:00 AM EDT - 07/09/2020 12:00:00 AM AJYLYN CHERRY ([facility]) [id number] Dental caries on smooth surface penetrat ing into pulp Dental Caries on Smooth Surface Penetrating into Pulp Problem 015 12:00:00 AM EST - 07/09/2020 12:00:00 AM EST JO ANN ([facility]) 458243819 Disorder of teeth AND/OR supporting stru ctures Disorder of Teeth AND/OR Supporting Structures Problem 07/23/2015 12:00:00 AM ES T - 07/09/2020 12:00:00 AM EST JO ANN ([facility]) [id number] Dental caries on smooth surface penetrat ing into pulp Dental Caries on Smooth Surface Penetrating into Pulp Problem 015 12:00:00 AM EST - 07/09/2020 12:00:00 AM EST JO ANN ([facility]) 159885261 Disorder of teeth AND/OR supporting stru ctures Disorder of Teeth AND/OR Supporting Structures Problem 07/23/2015 12:00:00 AM ES T - 07/09/2020 12:00:00 AM EST JO [facility] ([facility]) [id number] Dental caries on smooth surface penetrat ing into pulp Dental Caries on Smooth Surface Penetrating into Pulp Problem 015 12:00:00 AM EST - 07/09/2020 12:00:00 AM EST JO [facility] ([facility]) 679761571 Disorder of teeth AND/OR supporting stru ctures Disorder of Teeth AND/OR Supporting Structures Problem 07/23/2015 12:00:00 AM ES T - 07/09/2020 12:00:00 AM EST JO [facility] ([facility]) Surgeries/Procedures Procedure Description Date Indications Data Source(s) Extended Individual Psychotherapy - 45 min 09/06/2020 12:00:00 AM EST - 09/06/2020 12:00:00 AM EST [facility] ([facility]) Extended Individual Psychotherapy - 45 min 1 12:00:00 AM EST [facility] ([facility]) Extended Individual Psychotherapy - 45 min 08/12/2020 12:00:00 AM EST - 08/12/2020 12:00:00 AM EST [facility] ([facility]) Extended Individual Psychotherapy - 45 min 0 12:00:00 AM EST [facility] ([facility]) Extended Individual Psychotherapy - 45 min 06/08/2020 12:00:00 AM EDT - 06/08/2020 12:00:00 AM EDT [facility] ([facility]) Extended Individual Psychotherapy - 45 min 0 12:00:00 AM EDT [facility] ([facility]) [id number]"Psychotherapy 0 12:00:00 AM EDT - 05/20/2020 12:00:00 AM EDT [facility] ([facility]) [id number]"Psychotherapy 05/20/2020 12:00:00 AM EDT [facility] ([facility]) Extended Individual Psychotherapy - 45 min 04/29/2020 12:00:00 AM EDT - 04/29/2020 12:00:00 AM EDT [facility] ([facility]) Extended Individual Psychotherapy - 45 min 0 12:00:00 AM EDT [facility] ([facility]) TEMPMHCTelemed 30" Psychotherapy 020 12:00:00 AM EDT - 02/26/2020 12:00:00 AM EDT [facility] ([facility]) TEMPMHCTelemed 30" Psychotherapy 02/26/2020 12:00:00 A M EDT [facility] ([facility]) [id number]"Psychotherapy 0 12:00:00 AM EDT - 02/16/2020 12:00:00 AM EDT [facility] ([facility]) [id number]"Psychotherapy 02/16/2020 12:00:00 AM EDT [facility] ([facility]) TEMPMHCTelemed 30" Psychotherapy 020 12:00:00 AM EDT - 01/26/2020 12:00:00 AM EDT [facility] ([facility]) TEMPMHCTelemed 30" Psychotherapy 01/26/2020 12:00:00 A M EDT [facility] ([facility]) TEMPMHCTelemed 30" Psychotherapy 020 12:00:00 AM EDT - 01/15/2020 12:00:00 AM EDT [facility] ([facility]) TEMPMHCTelemed 30" Psychotherapy 01/15/2020 12:00:00 A M EDT [facility] ([facility]) TEMPMHCTelemed 30" Psychotherapy 020 12:00:00 AM EDT - 01/02/2020 12:00:00 AM EDT [facility] ([facility]) TEMPMHCTelemed 30" Psychotherapy 01/02/2020 12:00:00 A M EDT [facility] ([facility]) [id number]"Psychotherapy 0 12:00:00 AM EDT - 11/26/2019 12:00:00 AM EDT [facility] ([facility]) [id number]"Psychotherapy 11/26/2019 12:00:00 AM EDT [facility] ([facility]) Brief Individual Psychotherapy - 30 min 10/31/2019 12:00:00 AM EST - 10/31/2019 12:00:00 AM EST [facility] ([facility]) Brief Individual Psychotherapy - 30 min 10/31/2019 12: 00:00 AM EST [facility] ([facility]) Brief Individual Psychotherapy - 30 min 10/03/2019 12:00:00 AM EST - 10/03/2019 12:00:00 AM EST [facility] ([facility]) Brief Individual Psychotherapy - 30 min 10/03/2019 12: 00:00 AM EST [facility] ([facility]) Psychiatric Diagnostic Evaluation (Non-Medical) 09/08/2019 12:00:00 AM EST - 09/08/2019 12:00:00 AM EST [facility] ([facility]) Psychiatric Diagnostic Evaluation (Non-Medical) 2019 12:00:00 AM EST [facility] ([facility]) Extended Individual Psychotherapy - 45 min 08/26/2019 12:00:00 AM EST - 08/26/2019 12:00:00 AM EST [facility] Extended Individual Psychotherapy - 45 min 9 12:00:00 AM EST [facility] ([facility]) Results ID Date Data Source [id number] 06/07/2020 11:41:16 AM EDT [facility] Measurements & CalculationsHeight: 73 inches (6 [...] medication for a non-medical reason? 0Performed by: Stanton Self MA, June 07, 2020 11:58 AMPatient [...] during this visit, including review of any uhxp-jke-scubqla medications, herbal therapies, and/or supplements.Allergy ReviewAllergy List [...] & Plan Problems:Added: BMI 22.0-22.9 (ICD- V85.1) (POB92-W77.22)Encounter for screening for other metabolic disorders (RIH61-H77.228) Assessment: labs orderedAssessed:Hypertension (ICD-401.9) (RMO91-H85) Assessment: elevated in office today. discussed s/s that would warrant ED eval. pt needs to get back on meds and stabilize BP prior to dental procedure. will restart meds.vitamin D deficiency (ICD-268.9) (ALZ50-C78.9) Assessment: labs orderedAssessment not SavedOther psoriasis (MQX38-T62.8): Medications:VITAMIN D (ERGOCALCIFEROL) 66346 UNIT ORAL CAPSULECELEXA 10 MG ORAL TABLETLOSARTAN [...] ElectronicAllergies:* HALDOL FOR ANXIETY (Critical)Orders:COMP METABOLIC PANEL [CPT-39910] CBC W/DIFF [CPT-92735] HgBA1c [CPT-93236] LIPID PANEL [CPT-21383] TSH [CPT-68533] Adult - Ofc Vst, EST, Level III [CPT-91203] Vitamin D 250H Unspecified [CPT-90133] Follow-Up Return to clinic: in 10 days for blood pressureClinical Visit Summary DeclinedMedications:CELEXA 10 MG ORAL TABLET (CITALOPRAM HYDROBROMIDE) qd #30[Tablet] x 0 Route:ORAL Entered and Authorized by: Jackie CABALLERO Method used: Electronically to [facility]* ([employer]) [address] [place] [address] Note to Pharmacy: Route: ORAL; RxID: [id number] BESYLATE 10 MG ORAL TABLET (AMLODIPINE BESYLATE) One tablet by mouth every day #30[Tablet] x 1 Route:ORAL Entered and Authorized by: Jackie CABALLERO Method used: Electronically to [facility]* ([employer]) [address] [place] [address] Note to Pharmacy: Route: ORAL; RxID: [id number] POTASSIUM 100 MG ORAL TABLET (LOSARTAN POTASSIUM) One tablet by mouth every day #30[Tablet] x 1 Route:ORAL Entered and Authorized by: Jackie CABALLERO Method used: Electronically to [facility]* (retail) [address] [place] [id number] Fax: Note to Pharmacy: Route: ORAL; RxID: [id number] signed by Jackie CABALLERO on 06/07/2020 at 12:26 PM Labs In-House Blood TestsDate/Time Collected: June 07, 2020 1:02 PMTest Result Reference Range Normal ValueComments: taken from right ac, tolerated well.Kacynic Barba, June 07, 2020 1:02 PM Name Value Range Interpretation Code Description Data Whit rce(s) Supporting Document(s) ID Date Data Source [id number] 10/10/2019 08:16:38 AM EST [facility] Labs In-House Blood TestsDate/Time Colle cted: October 10, 2019 8:16 AMTest Result Reference Range Normal ValueComments: blood draw done in offcie done in the right ac tolerated well Cecil Crandall MA, October 10, 2019 8:17 AMAssessment & Plan Orders:63611-Zyn Vst-Est Level I [CPT-41339] 45318 - Venipuncture [CPT-82105] Electronically signed by Caro AMAYA on at 1:12 PM Name Value Range Interpretation Code Description Data Whit rce(s) Supporting Document(s) ID Date Data Source [id number] 10/10/2019 08:10:00 AM [facility] Name Value Range Interpretation Code Description Data Whit rce(s) Supporting Document(s) VIT D25 TOT 11.2 ng/mL 30.0-100.0 L [facility] BG FASTING 101 mg/dL 70-[address] [facility] PSA 0.83 ng/mL < 4.[address] [facility] T4, FREE 0.89 ng/dL 0.76-1.[address] [facility] TSH 1.360 microintl units/mL 0.358-3.740 N [facility] Family [facility] ID Date Data Source [id number] 10/10/2019 08:10:00 AM [facility] Name Value Range Interpretation Code Description Data Whit rce(s) Supporting Document(s) HGBA1C 5.0 % N [facility] ID Date Data Source [id number] 10/10/2019 08:10:00 AM [facility] Name Value Range Interpretation Code Description Data Whit rce(s) Supporting Document(s) HCT 44.8 % 42.0-52.0 N [facility] HGB 14.2 g/dL 13.5-17.5 N [facility] MCH 31.7 G/DL pg 32.0-36.5 L [facility] MCHC 24.7 PG % 27.0-33.0 L [facility] PLATELETS 197 10 10*3/mm3 150-450 N [facility] RBC 5.74 10 10*6/mm3 4.30-6.10 [facility] RDW 15.0 % 11.5-14.5 H [facility] WBC TOTAL 7.7 4.0-10.0 N [facility] ID Date Data Source [id number] 09/04/2019 08:23:10 AM [facility] Patient History Social/Personal History: Smoking Status: current every day smokerAdvised to Quit/Tobacco Education: YesCurrent Problems: Skin lesion (ICD- 709.9) (MAG96-Y47.9)Health Screening (ICD-V70.0) (UKV29-O81.9)Dental caries (ICD-521.00) (PRO40-B20.9)Encounter for screening for malignant neoplasm of respiratory organs (ICD-V76.0) (ZCB26-B58.2)Encounter for general adult medical examination without abnormal findings (IQA48-Y41.00)Under immunized (ICD10- Z28.3)Tobacco use (ICD-305.1) (VIB86-A98.0)Other psoriasis (GFO90-E31.8)Hepatits C (ICD-070.51) (XPC17-E83.10)Dental disorder (ICD-525.9) (KWX64-M97.9)DENTAL CARIES EXTENDING INTO PULP (ICD-521.03) (TLT67-O90.63)Hypertension (ICD-401.9) (RFP32-H20)Current Medications: CELEXA 10 MG ORAL TABLET (CITALOPRAM [...] during this visit, including review of any ndfw-elv-zsjmtjn medications, herbal therapies, and/or supplements.Allergy ReviewAllergy List was reviewed and/or updated during this visit. Name Value Range Interpretation Code Description Data Whit rce(s) Supporting Document(s) ID Date Data Source [id number] 09/02/2019 01:23:02 PM [facility] Measurements & CalculationsHeight: 73 inches (6 [...] to the hospital? No - admitted at [facility] (alcohol tx)Have you been to an [...] with school. Pt states attending college at [employer]. HPI p erformed by: Caro Pires [facility], September 02, 2019 1:54 PMTransitions of Care InboundProblem ReviewProblem List was reviewed and/or updated during this visit.Medication Reconciliation & ReviewMedication List was reviewed and/or updated during this visit, including review of any pbdr-urs-aclkidh medications, herbal therapies, and/or supplements.Allergy ReviewAllergy List [...] GoodAssessment & Plan Problems:Added: Health Screening (ICD-V70.0) (IGK88-S26.9) Assessment: Instructions: We have ordered labs for you today. Please return to have labs drawn prior to yhour next visit. Please fast for 8-10 prior.Skin lesion (ICD-709.9) (DFC10-W94.9) Assessment: Rash, right thigh. Instructions: We have made a referral for you today. We will contact you to set this up.Assessed:Tobacco use (ICD-305.1) (SBB33-R60.0) Assessment: smoking cessation discussed. Pt states smokes 3-10 cigarettes daily. Pt states trying to quit. Instructions: Please try to quit smoking. Please let us know if your need assistance in doing so.Dental caries (ICD-521.00) (IGM30-J47.9) Assessment: Instructions: Unable to medically clear you for dental procedure today due to elevated BP. Pt start taking BP meds for BP control.Hypertension (ICD-401.9) (TWZ83-M40) Assessment: Instructions: We have sent a refill of your medications today. Please start taking medications as prescribed. Please report any major side effects. Please start lifestyle changes to include healthy diet and physical activities. Please try to avoid added sodium in your diet. Please try to avoid processed foods.Hypertension (ICD-401.9) (RMZ84-Y17) Assessment: Pt denies s/s of hypertension.Patient Instructions/Care [...] TABSAllergies:* HALIDO FOR ANXIETY (Critical)Orders:COMP METABOLIC PANEL [CPT-57386] CBC W/DIFF [CPT-70194] HgBA1c [CPT-41615] LIPID PANEL [CPT-94248] TSH [CPT-84576] T-4 free [CPT-45113] Vitamin D 250H Unspecified [CPT-43557] URINALYSIS [CPT-58849] VITAMIN B-12 [CPT-06569] Folate (Folic Acid Serum) [CPT-38284] Magnesium [C25507H,Z118802] PROSTATE CANCER SCREENING; PSA TEST [CPT-G0103] Dermatology Consult [CPT-99860] Adult - Ofc Vst, EST, Level IV [CPT-92057] Follow-Up Return to clinic: 2 weeks for [...] rce(s) Supporting Document(s) ID Date Data Source [id number] 08/22/2019 10:52:20 AM [facility] Vital SignsBlood Pressure: 164/104 manualPatient History Social/Personal History: Smoking Status: current every day smokerAdvised to Quit/Tobacco Education: YesCurrent Problems: Dental caries (ICD-521.00) (VZI23-R78.9)Encounter for screening for malignant neoplasm of respiratory organs (ICD-V76.0) (MTU75-N02.2)Encounter for general adult medical examination without abnormal findings (CAN64-J24.00)Under immunized (CIL04-T43.3)Tobacco use (ICD-305.1) (LRK83-U83.0)Other psoriasis (FOR88-F08.8)Hepatits C (ICD-070.51) (NBW43-V53.10)Dental disorder (ICD-525.9) (IPK00-I39.9)DENTAL CARIES EXTENDING INTO PULP (ICD-521.03) (MGZ83-I13.63)Hypertension (ICD-401.9) (XIZ52-O87)Current Medications: CELEXA 10 MG ORAL TABLET (CITALOPRAM [...] year Chart Notes:tarsha (Aug 22 2019 12:57PM): [facility]). CC: none. Reviewed Xrays. Exam: caries [...] N/V-Perio scaling once approved.Belkis Laughlin RDH by jean (08/22/2019 12:30 PM): Tooth Notes and Watches:- [...] TABSAllergies:* HALIDO FOR ANXIETY (Critical)Orders:Oral Surgery Referral [CPT-66862] Clinical Visit Summary DeclinedSmoking, Tobacco or Smoke Exposure StatusSmoke Status: current every day smokerTobacco Use: YesAdv to Quit: YesClinical List ReviewProblem ReviewProblem List was reviewed and/or updated during this visit.Medication Reconciliation & ReviewMedication List was reviewed and/or updated during this visit, including review of any kvea-uqc-tqiupja medications, herbal therapies, and/or supplements.Allergy ReviewAllergy List was reviewed and/or updated during this visit. Name Value Range Interpretation Code Description Data Whit rce(s) Supporting Document(s) Procedure Social History Code Duration Value Status Description Data Source(s ) Smoking 09/06/2020 12:00:00 AM EST Unknown if ever smoked comp leted Unknown if ever smoked [facility] ([facility]) Smoking 08/12/2020 12:00:00 AM EST Unknown if ever smoked comp leted Unknown if ever smoked [facility] ([facility]) Smoking 06/08/2020 12:00:00 AM EDT Unknown if ever smoked comp leted Unknown if ever smoked [facility] ([facility]) Smoking 05/20/2020 12:00:00 AM EDT Unknown if ever smoked comp leted Unknown if ever smoked [facility] ([facility]) Smoking 04/29/2020 12:00:00 AM EDT Unknown if ever smoked comp leted Unknown if ever smoked [facility] ([facility]) Smoking 02/26/2020 12:00:00 AM EDT Unknown if ever smoked comp leted Unknown if ever smoked [facility] ([facility]) Smoking 02/16/2020 12:00:00 AM EDT Unknown if ever smoked comp leted Unknown if ever smoked [facility] ([facility]) Smoking 01/26/2020 12:00:00 AM EDT Unknown if ever smoked comp leted Unknown if ever smoked [facility] ([facility]) Smoking 01/15/2020 12:00:00 AM EDT Unknown if ever smoked comp leted Unknown if ever smoked [facility] ([facility]) Smoking 01/02/2020 12:00:00 AM EDT Unknown if ever smoked comp leted Unknown if ever smoked [facility] ([facility]) Smoking 11/26/2019 12:00:00 AM EDT Unknown if ever smoked comp leted Unknown if ever smoked [facility] ([facility]) Smoking 10/31/2019 12:00:00 AM EST Unknown if ever smoked comp leted Unknown if ever smoked [facility] ([facility]) Smoking 10/03/2019 12:00:00 AM EST Unknown if ever smoked comp leted Unknown if ever smoked [facility] ([facility]) Smoking 09/08/2019 12:00:00 AM EST Unknown if ever smoked comp leted Unknown if ever smoked [facility] ([facility]) Smoking 08/26/2019 12:00:00 AM EST Unknown if ever smoked comp leted Unknown if ever smoked [facility] ([facility]) Vital Signs ID Date Data Source UNK Name Value Range Interpretation Code Description Data Source(s) Body weight 2592 [oz_av] 2592 [oz_av] JO ANN ([facility]) Systolic blood pressure 135 mm[Hg] 135 mm[Hg] A [facility] ([facility]) Body mass index (BMI) [Ratio] 21.4 kg/m2 21.4 k g/m2 JO [facility] ([facility]) Body height 73 [in_i] 73 [in_i] JO [facility] ([facility]) Diastolic blood pressure 85 mm[Hg] 85 mm[Hg] [facility] ([facility]) Body weight 2592 [oz_av] 2592 [oz_av] JO ANN ([facility]) Systolic blood pressure 135 mm[Hg] 135 mm[Hg] A [facility] ([facility]) Body mass index (BMI) [Ratio] 21.4 kg/m2 21.4 k g/m2 JO ANN ([facility]) Body height 73 [in_i] 73 [in_i] JO [facility] ([facility]) Diastolic blood pressure 85 mm[Hg] 85 mm[Hg] JO [facility] ([facility]) Body weight 2528 [oz_av] 2528 [oz_av] JO [facility] ([facility]) Systolic blood pressure 217 mm[Hg] 217 mm[Hg] A [facility] ([facility]) Systolic blood pressure 179 mm[Hg] 179 mm[Hg] A [facility] ([facility]) Body mass index (BMI) [Ratio] 20.8 kg/m2 20.8 k g/m2 JO ANN ([facility]) Body height 73 [in_i] 73 [in_i] JO [facility] ([facility]) Diastolic blood pressure 138 mm[Hg] 138 mm[Hg] JO ANN ([facility]) Diastolic blood pressure 113 mm[Hg] 113 mm[Hg] JO [facility] ([facility]) Body weight 2528 [oz_av] 2528 [oz_av] JO [facility] ([facility]) Systolic blood pressure 217 mm[Hg] 217 mm[Hg] [facility] Systolic blood pressure 179 mm[Hg] 179 mm[Hg] A [facility] ([facility]) Body mass index (BMI) [Ratio] 20.8 kg/m2 20.8 k g/m2 JO ANN ([facility]) Body height 73 [in_i] 73 [in_i] JO ANN ([facility]) Diastolic blood pressure 138 mm[Hg] 138 mm[Hg] JO ANN ([facility]) Diastolic blood pressure 113 mm[Hg] 113 mm[Hg] JO [facility] ([facility]) Body weight 2528 [oz_av] 2528 [oz_av] JO ANN ([facility]) Systolic blood pressure 217 mm[Hg] 217 mm[Hg] [facility] Systolic blood pressure 179 mm[Hg] 179 mm[Hg] [facility] Body mass index (BMI) [Ratio] 20.8 kg/m2 20.8 k g/m2 JO ANN ([facility]) Body height 73 [in_i] 73 [in_i] JO ANN ([facility]) Diastolic blood pressure 138 mm[Hg] 138 mm[Hg] JO ANN ([facility]) Diastolic blood pressure 113 mm[Hg] 113 mm[Hg] JO ANN ([facility]) Body weight 2818.08 [oz_av] 2818.08 [oz_av] ATH VIJAYA ([facility]) Systolic blood pressure 167 mm[Hg] 167 mm[Hg] [facility] Body height 73 [in_i] 73 [in_i] JO ANN ([facility]) Diastolic blood pressure 108 mm[Hg] 108 mm[Hg] JO ANN ([facility]) Body weight 2818.08 [oz_av] 2818.08 [oz_av] ATH VIJAYA ([facility]) Systolic blood pressure 167 mm[Hg] 167 mm[Hg] [facility] Body height 73 [in_i] 73 [in_i] JO ANN ([facility]) Diastolic blood pressure 108 mm[Hg] 108 mm[Hg] JO ANN ([facility]) Body weight 2818.08 [oz_av] 2818.08 [oz_av] ATH VIJAYA ([facility]) Systolic blood pressure 167 mm[Hg] 167 mm[Hg] A THENA ([facility]) Body height 73 [in_i] 73 [in_i] JO ANN ([facility]) Diastolic blood pressure 108 mm[Hg] 108 mm[Hg] JO ANN ([facility]) Systolic blood pressure 164 mm[Hg] 164 mm[Hg] [facility] Diastolic blood pressure 104 mm[Hg] 104 mm[Hg] JO ANN ([facility]) Systolic blood pressure 164 mm[Hg] 164 mm[Hg] A THENA ([facility]) Diastolic blood pressure 104 mm[Hg] 104 mm[Hg] JO ANN ([facility]) Systolic blood pressure 164 mm[Hg] 164 mm[Hg] A [facility] ([facility]) Diastolic blood pressure 104 mm[Hg] 104 mm[Hg] JO ANN ([facility])
== END 2020-09-16 00:34 | disposition home or self-care (01) ==
LOC: M ED 23:35
DX: F10.129 Alcohol abuse with intoxication, unspecified (principal); F14.10 Cocaine abuse, uncomplicated; Z88.8 Allergy status to other drugs, medicaments and biological substances; F17.210 Nicotine dependence, cigarettes, uncomplicated

== ENCOUNTER → 2023-02-02 | Outpatient (REF) | payer MEDICARE, MEDICAID ==
[~2023-02-02] MED LIST changes: +BISO1TAB18 PO; -BISO5TAB2 PO; -CITA10TA5 PO; +CITA10TA7 PO; -OLAN10TA2 PO; +OLAN1TAB20 PO; -QUET50TA3 PO; +QUET50TA4 PO
[2023-02-02 14:58] LABS: BASO # 0.1 10^3/uL (0.0-0.2); BASO % 1.8 % (0.0-1.0); EOS # 0.4 10^3/uL (0.0-0.5); EOS % 5.7 % (0.0-3.0); HEMATOCRIT 44.2 % (42.0-52.0); HEMOGLOBIN 14.1 g/dl (13.5-17.5); LYMPH # 2.5 10^3/uL (1.5-5.0); LYMPH % 37.2 % (24.0-44.0); MEAN CORPUSCULAR HEMOGLOBIN 24.9 pg (27.0-33.0); MEAN CORPUSCULAR HGB CONC 31.9 g/dl (32.0-36.5); MONO # 0.7 10^3/uL (0.0-0.8); MONO % 10.9 % (2.0-8.0); NEUTROPHILS # 2.9 10^3/uL (1.5-8.5); PLATELET COUNT, AUTOMATED 276 10^3/uL (150-450); RED BLOOD COUNT 5.67 10^6/uL (4.30-6.10); WHITE BLOOD COUNT 6.7 10^3/uL (4.0-10.0)
[2023-02-02 15:00] LABS: ALKALINE PHOSPHATASE 74 U/L (46-116); ALT/SGPT 24 U/L (7.0-40); AST/SGOT 21 U/L (<34); BILIRUBIN,TOTAL 0.4 MG/DL (0.3-1.2); BLOOD UREA NITROGEN 13 MG/DL (9-23); CALCIUM LEVEL 8.8 MG/DL (8.3-10.6); CARBON DIOXIDE LEVEL 29 MMOL/L (20-31); CHLORIDE LEVEL 104 MMOL/L (98-107); CHOLESTEROL LEVEL 152 MG/DL (<200); CHOLESTEROL RISK RATIO 2.97 (<5); CREATININE FOR GFR 1.03 MG/DL (0.70-1.30); GLOMERULAR FILTRATION RATE > 60.0 (>49); GLUCOSE, FASTING 98 MG/DL (74-106); HDL CHOLESTEROL 51.1 MG/DL (>40); LDL CHOLESTEROL 75.9 MG/DL (<100); MAGNESIUM LEVEL 1.8 MG/DL (1.8-2.4); NON-HDL-C 100.9 MG/DL; POTASSIUM SERUM 4.3 MMOL/L (3.5-5.1); SODIUM LEVEL 138 MMOL/L (136-145); TOTAL 25(OH) VITAMIN D 15.3 NG/ML (20.0-100.0); TOTAL PROTEIN 7.3 G/DL (5.7-8.2); TRIGLYCERIDES LEVEL 125 MG/DL (<150)
[2023-02-02 15:50] LABS: HEMOGLOBIN A1c 4.8 % (4.0-6.0)
== END ==
LOC: M LAB REF 12:25
PROVIDERS: ATTEND Nurse Practitioner Family
DX: Z13.228 Encounter for screening for other metabolic disorders (principal); Z79.899 Other long term (current) drug therapy

== ENCOUNTER → 2024-07-17 | Outpatient (REF) | payer MEDICARE, MEDICAID ==
[~2024-07-17] MED LIST changes: +FLUO-365 PO; -FLUO20CA22 PO; +GABA-1172 PO; -GABA-282 PO
[2024-07-17 13:46] LABS: BASO # 0.1 10^3/uL (0.0-0.2); BASO % 1.4 % (0.0-1.0); EOS # 0.3 10^3/uL (0.0-0.5); EOS % 4.4 % (0.0-3.0); HEMATOCRIT 47.7 % (42.0-52.0); LYMPH # 2.2 10^3/uL (1.5-5.0); MEAN CORPUSCULAR HEMOGLOBIN 24.7 pg (27.0-33.0); MEAN CORPUSCULAR HGB CONC 31.4 g/dl (32.0-36.5); MEAN CORPUSCULAR VOLUME 78.5 fl (80.0-96.0); MONO # 0.8 10^3/uL (0.0-0.8); MONO % 12.2 % (2.0-8.0); NEUTROPHILS # 3.2 10^3/uL (1.5-8.5); NEUTROPHILS % 48.1 % (36.0-66.0); PLATELET COUNT, AUTOMATED 267 10^3/uL (150-450); RED BLOOD COUNT 6.08 10^6/uL (4.30-6.10); WHITE BLOOD COUNT 6.6 10^3/uL (4.0-10.0)
[2024-07-17 14:13] LABS: ALBUMIN 4.1 G/DL (3.2-5.2); ALKALINE PHOSPHATASE 74 U/L (40-129); ALT/SGPT 21 U/L (7.0-40); AST/SGOT 14 U/L (<34); BILIRUBIN,TOTAL 0.5 MG/DL (0.3-1.2); BLOOD UREA NITROGEN 18 MG/DL (9-23); CARBON DIOXIDE LEVEL 29 MMOL/L (20-31); CHLORIDE LEVEL 105 MMOL/L (98-107); CREATININE FOR GFR 1.02 MG/DL (0.70-1.30); GLOMERULAR FILTRATION RATE > 60.0 (>49); GLUCOSE, FASTING 96 MG/DL (74-106); MAGNESIUM LEVEL 1.9 MG/DL (1.8-2.4); POTASSIUM SERUM 4.9 MMOL/L (3.5-5.1); SODIUM LEVEL 139 MMOL/L (136-145); TOTAL PROTEIN 8.4 G/DL (5.7-8.2)
[2024-07-17 14:14] LABS: TOTAL 25(OH) VITAMIN D 27.8 NG/ML (20.0-100.0)
== END ==
LOC: M LAB REF 12:27
PROVIDERS: ATTEND Nurse Practitioner Family
DX: I10 Essential (primary) hypertension (principal); E55.9 Vitamin D deficiency, unspecified

== ENCOUNTER → 2025-03-30 | Outpatient (CLI) | payer MEDICARE, MEDICAID ==
[~2025-03-30] MED LIST changes: +AMLO-751 PO; -AMLO10TA PO
== END ==
LOC: M CARPUL 10:10
PROVIDERS: ATTEND Student in an Organized Health Care Education/Training Program
DX: R01.1 Cardiac murmur, unspecified (principal); I08.0 Rheumatic disorders of both mitral and aortic valves; I77.810 Thoracic aortic ectasia